=== PATIENT | male | born 1940 | race Caucasian/White ===

== ENCOUNTER → 2016-10-21 | Day surgery (SDC) | payer BC ==
[2016-10-15 13:50] VITALS: BMI 32.0
[2016-10-19 09:55] VITALS: Ht 172.7 cm; Wt 95.5 kg
[~2016-10-21] VITALS: Ht 172.7 cm; Wt 95.5 kg
[~2016-10-21] MED LIST: 500ML BSS 0.3ML EPI 1:1000PF IRRIG ONE; ACETAMINOPHEN 325 MG TAB PO PRN; AMVISC PLUS 0.8ML SYRINGE INT OCU ONE; ATROPINE SULFATE 0.1 MG/ML 5ML SYR IV PRN; BSS FLUSH ONE; DIAZ-165 PO; EpHEDrine SULFATE INJ 50 MG/ML AMP IV PRN; EpINEphrine INJ 1MG/ML AMP 1 MG/ML AMP ONE; LACTATED RINGER'S 1000ML 500 ML IV SCH; LIDOCAINE 3.5% OPH GEL PER APPLICATION CHARGE ONE; LIDOCAINE HCL 1% MPF 2 ML VIAL ONE; MECL1TAB42 PO; MIDAZOLAM HCL 1 MG/ML 2ML VIAL ONE; OCUCOAT 1 ML SOLN IO ONE; ONDA4TAB10 SL; POVIDONE-IODINE OP SOLN 30 ML BTL ONE; PROPARACAINE 0.5% OP SOLN PER DROP CHARGE OPR SCH; TOBRAMYCIN/DEXAMETHASONE OPH OINT PER APPLN CHARGE ONE
[2016-10-21] MEDS: TROPICAMIDE 1% OP SOLN PER DROP CHARGE OPR SCH ×2 (06:31→06:37)
[2016-10-21] MEDS: PHENYLEPHRINE HCL 2.5% OP SOLN PER DROP CHARGE OPR SCH ×2 (06:31→06:36)
[2016-10-21] MEDS: CYCLOPENTOLATE HCL 1% OP SOLN PER DROP CHARGE OPR SCH ×2 (06:32→06:38)
[2016-10-21] MEDS: KETOROLAC 0.5% OP SOLN PER DROP CHARGE OPR SCH ×2 (06:33→06:39)
[2016-10-21] MEDS: GATIFLOXACIN OP SOLN PER DROP CHARGE OPR SCH ×2 (06:34→06:44)
--- NOTE | 2016-10-21 07:04 | History & Physical Bridge - [place] ---
H&P Re-Evaluation Bridge Note: I have examined the patient, reviewed the History & Physical and in the interval since the performance of the History & Physical I have noted the following changes of clinical significance: No changes noted
--- NOTE | 2016-10-21 07:24 | Discharge Instructions-SurgCtr ---
Discharge Instructions Visit Reason for Visit: Cataract Right Eye Discharge Discharge Diagnosis / Problem: cataract Discharge Goals Goal(s): Improve function Activity Recommendations Activity Limitations: per Instructions/Follow-up section Anesthesia . Post Anesthesia Instructions: If you have had General Anesthesia or IV Sedation: * Do not drive today. * Resume driving when surgeon permits. * Do not make important decisions or sign legal documents today. * Call surgeon for: 1. Temperature elevations greater than 101 degrees F. 2. Uncontrollable pain. 3. Excessive bleeding. 4. Persistent nausea and vomiting. 5. Medication intolerance (nausea, vomiting or rash). * For nausea and vomiting use only clear liquids such as: tea, soda, bouillon until nausea subsides, then gradually increase diet as tolerated. * If you have any concerns or questions, call your surgeon's office. If physician is unavailable and it is an emergency, call 911 or go to the nearest emergency room. . Instructions / Follow-Up Instructions / Follow-Up ACTIVITY RECOMMENDATIONS: * No strenuous lifting, jogging or running for 4 days * No swimming or yard work for 1 week. * Limited bending is permitted, such as putting on shoes. RETURN TO SCHOOL/WORK: No work until seen by physician in office. MEDICATIONS: Resume previous medications unless instructed otherwise by your surgeon. This includes eye drops for glaucoma. Zymaxid/Gatifloxacin (marr cap) - one drop every 2 hours until bedtime Nevanac/Ilevro/Prolensa/Ketorolac (newton cap) - one drop every 4 hours until bedtime Prednisolone (white/pink cap, SHAKE WELL) - one drop every 2 hours until bedtime Starting tomorrow - all 3 drops every 4 hours until seen in the office Optive drops - as needed for discomfort SPECIAL CARE INSTRUCTIONS: * Wear eyeshield when sleeping, for four nights. * You may wear your own glasses or sunglasses while awake. * You may read or watch TV * You may shower and wash your face, but be gentle around the eye and pat dry. * Blurry vision and mild irritation are normal. * Call office if pain is more severe or vision becomes dark at . FOLLOW UP VISIT: Follow-up with Dr Chandra tomorrow. Diet Recommendations Home Diet: resume previous diet Procedures Procedures Performed: Right Cataract Phacoemulsification With Intraocular Lens Implant Pending Studies Studies pending at discharge: no Medical Emergencies . Who to Call and When: Medical Emergencies: If at any time you feel your situation is an emergency, please call 911 immediately. . Non-Emergent Contact Non-Emergency issues call your: [facility] [employer] . . "Provider Documentation" section prepared by Robin Chandra.
--- NOTE | 2016-10-21 07:25 | [facility] Operative Report ---
Operative Report 1. PREOPERATIVE DIAGNOSIS: Cataract of the right eye. 2. POSTOPERATIVE DIAGNOSIS: Same. 3. PROCEDURE: Phacoemulsification with intraocular lens implantation of the right eye. SURGEON: Dr. Robin Chandra. ANESTHESIA: Topical Lidocaine gel, 1% Non- Preserved intracameral Lidocaine, and monitored intravenous sedation. INDICATIONS FOR THE PROCEDURE: The patient is a 76 - year-old male with a history of cataract of the right eye causing significant visual impairment. The details of the proposed procedure were explained to the patient who asked appropriate questions and following discussion of all risks, benefits and alternatives agreed to have the procedure done. 4. OPERATION AND FINDINGS: DESCRIPTION OF PROCEDURE: After informed consent was obtained, the patient was brought to the Operating Room at the [facility]. The patient was placed in a supine position and then the right eye was prepped and draped in the usual sterile fashion for intraocular surgery. A drop of topical Lidocaine gel was placed in the operative eye. A wire lid speculum was then placed in the fornices. A corneal paracentesis was then created temporally. The Non-Preserved Lidocaine was then instilled into the anterior chamber. The anterior chamber was then pressurized with viscoelastic. A 2.0 mm clear corneal incision was then created temporally. A cystotome was inserted into the anterior chamber and used to create a tear in the anterior lens capsule. This capsular tear was then used to create a small flap and the flap was dragged in a counterclockwise direction in order to create a continuous curvilinear capsulorrhexis. Hydrodissection was accomplished with balanced salt solution. Phacoemulsification of the lens nucleus was then performed in a standard [id number]-[id number] technique. The phaco time was 24 seconds with an average power of 13 %. The remaining cortical material was removed using irrigation aspiration. The capsular bag was then filled with viscoelastic. A B[employer]ch [employer] Lomb MI60L +22.5 diopters lens was then loaded into the injector and injected into the capsular bag. The remaining viscoelastic was removed with the irrigation aspiration handpiece. The wound was hydrated and then checked and found to be watertight. The intraocular pressure was checked and found to be adequate. The wire lid speculum was removed and the patient's face was cleaned and dried. TobraDex ointment was placed in the inferior fornix. The patient was discharged to the Recovery Room having tolerated the procedure well. There were no complications. The patient will be seen tomorrow in the office for follow-up. I attest to the content of the Intraoperative Record and any orders documented therein. Any exceptions are noted below.
[2016-10-21 07:27] VITALS: TEMP 36.4
[2016-10-21 07:50] VITALS: BP 116/61; PULSE 63; O2SAT 96
--- NOTE | 2016-10-21 07:59 | Anesthesiology Progress Note ---
Anesthesia Post Op Note Date & Time Oct 21, 2016 at 07:59 Vital Signs Pain Intensity: 0 Vital Signs Past 12 Hours Date Time Temp Pulse Resp B/P Pulse Ox O2 Delivery O2 Flow Rate FiO2 10/21/16 07:27 36.4 55 16 117/75 97 Room Air 10/21/16 06:26 36.5 58 18 120/76 95 Room Air Notes Mental Status: alert / awake / arousable, participated in evaluation Pt Amnestic to Procedure: Yes Nausea / Vomiting: adequately controlled Pain: adequately controlled Airway Patency, RR, SpO2: stable & adequate BP & HR: stable & adequate Hydration State: stable & adequate Anesthetic Complications: no major complications apparent
== END | disposition home or self-care (01) ==
LOC: X.SURG 06:13
PROVIDERS: ATTEND Ophthalmology
DX: H26.9 Unspecified cataract (principal); H54.7 Unspecified visual loss; I35.0 Nonrheumatic aortic (valve) stenosis; G47.00 Insomnia, unspecified; Z95.2 Presence of prosthetic heart valve; Z88.5 Allergy status to narcotic agent; Z88.8 Allergy status to other drugs, medicaments and biological substances; Z86.010 Personal history of colon polyps; Z96.659 Presence of unspecified artificial knee joint; Z82.49 Family history of ischemic heart disease and other diseases of the circulatory system

== ENCOUNTER 2017-04-22 06:30 | Emergency (ER) | payer BC ==
[~2017-04-22] VITALS: Ht 175.3 cm; Wt 96.0 kg
[2017-04-22 06:37] VITALS: TEMP 36.6; Ht 175.3 cm; Wt 96.0 kg
[2017-04-22] MEDS ORDERED: SODIUM CHLORIDE 0.9% 1000ML 1,000 ML IV STA (06:56)
[2017-04-22] MEDS ORDERED: ONDANSETRON 8 MG/54 ML D5W IV STA (06:56)
[2017-04-22] MEDS ORDERED: DIAZEPAM INJ 5 MG/ML 2 ML CARP IV STA ×2 (06:56→10:38)
[2017-04-22 07:00] VITALS: O2SAT 97
[2017-04-22 07:05] LABS: BASO % 0.5 %; BASO ABS # 0.04 K/uL (0-0.2); COMPLETE YES; EOS % 2.1 %; HEMATOCRIT 43.8 % (42-52); LYMPH % 19.3 %; LYMPH ABS # 1.58 K/uL (1.2-3.4); MEAN CELL VOLUME 93.2 fL (80-100); MEAN CORPUSCULAR HEMOGLOBIN 31.9 pg (25-34); MEAN CORPUSCULAR HGB CONC 34.2 g/dl (32-36); MEAN PLATELET VOLUME 9.1 fL (7.4-10.4); MONO % 7.5 %; NEUT % 69.6 %; PLATELET COUNT 184 K/uL (130-400); WHITE BLOOD COUNT 8.18 K/uL (4.8-10.8)
[2017-04-22 07:18] LABS: ALT/SGPT 31 U/L (12-78); AST/SGOT 16 U/L (15-37); BLOOD UREA NITROGEN 12 mg/dl (7-18); CALCIUM 8.8 mg/dl (8.5-10.1); CARBON DIOXIDE 27 mmol/L (21-32); CHLORIDE 109 mmol/L (98-107); CREATININE 0.92 mg/dl (0.60-1.40); GLUCOSE 134 mg/dl (70-99); MAGNESIUM 2.1 mg/dl (1.8-2.4); POTASSIUM 4.1 mmol/L (3.5-5.1); SODIUM 143 mmol/L (136-145)
[2017-04-22 07:19] LABS: PROTHROMBIN TIME (PATIENT) 10.8 SECONDS (9.0-12.0)
[2017-04-22 07:29] LABS: ALKALINE PHOSPHATASE 61 U/L (45-117)
--- NOTE | 2017-04-22 07:59 | DIAGNOSTIC IMAGING REPORT ---
HEAD WITHOUT CONTRAST (CT) CLINICAL HISTORY: 76 years-old Male presenting with EVALUATE WEAKNESS. TECHNIQUE: Multidetector CT imaging of the head was performed without the use of intravenous contrast. COMPARISON: 08/02/2007. CT DOSE: 729.78 mGycm FINDINGS: Brain parenchyma normal in appearance with preserved newton-white differentiation. No mass effect or midline shift. No hemorrhage or acute territorial infarct. No hydrocephalus. No extra-axial fluid collection. Paranasal sinuses and mastoid air cells clear. Calvarium intact. IMPRESSION: No acute intracranial pathology. Electronically signed by: Dany Palafox M.D. 04/22/2017 7:58 AM Dictated Date/Time: 04/22/2017 7:55 AM
[2017-04-22 08:07] LABS: URINE APPEARANCE CLEAR (CLEAR); URINE BILIRUBIN NEG (NEG); URINE COLOR YELLOW; URINE NITRITE NEG (NEG); URINE SPECIFIC GRAVITY 1.021 (1.000-1.030); UROBILINOGEN NEG (NEG)
[2017-04-22 08:23] LABS: MANUAL MICROSCOPIC REQUIRED? NO; REVIEW REQ? NO
[2017-04-22] MEDS ORDERED: GADAVIST IV PRN (12:45)
--- NOTE | 2017-04-22 12:51 | DIAGNOSTIC IMAGING REPORT ---
MRA HEAD WITHOUT CONTRAST CLINICAL HISTORY: 76 years-old Male presenting with dizziness for 2 days with nausea and vomiting. TECHNIQUE: MR angiography of the head was performed without the use of intravenous contrast using a 3-D [id number]-[id number] technique. 3-D volumetric tumble views were reconstructed for review. IV contrast: None. COMPARISON: None. FINDINGS: No significant stenosis, aneurysm, or occlusion of the intracranial vasculature. Intracranial portions of the internal carotid arteries and anterior circulation including the anterior and middle cerebral arteries patent. Vertebrobasilar system and posterior circulation including the superior cerebellar and posterior cerebral arteries also patent. IMPRESSION: 1. No significant stenosis, aneurysm, occlusion of the intracranial vasculature. Electronically signed by: Dany Palafox M.D. 04/22/2017 12:50 PM Dictated Date/Time: 04/22/2017 12:43 PM
--- NOTE | 2017-04-22 12:59 | DIAGNOSTIC IMAGING REPORT ---
MRI OF THE BRAIN WITHOUT CONTRAST CLINICAL HISTORY: Persistent dizziness, nausea, vomiting. COMPARISON STUDY: Noncontrast head CT dated 04/22/2017 FINDINGS: Sagittal T1, axial diffusion, proton density and T2 weighted axial, coronal FLAIR, and axial T1-weighted images were acquired. No intra or extra-axial mass lesions are visualized Axial diffusion-weighted images reveal no evidence of acute or subacute infarction. There is no evidence of ventricular dilatation. Proton density T2-weighted and FLAIR images reveal minor foci of increased T2 signal within the white matter likely a small vessel basis. There are no abnormal flow voids. IMPRESSION: Normal study. Electronically signed by: Hilton Mendoza M.D. 04/22/2017 12:58 PM Dictated Date/Time: 04/22/2017 12:52 PM
--- NOTE | 2017-04-22 13:27 | DIAGNOSTIC IMAGING REPORT ---
NECK MRA HISTORY: Dizziness, nausea, vomiting. TECHNIQUE: Rgmb-we-efpfcm and gadolinium-enhanced MRA of the neck was performed both before and after the intravenous administration of contrast. All measurements were calculated based on NASCET criteria. The patient was administered 9.5 cc of intravenous Gadavist COMPARISON STUDY: None. FINDINGS: The aortic arch and proximal great vessels are widely patent. There are mild to moderate atheromatous changes at both carotid bulbs. There is no evidence of hemodynamic significant internal carotid artery stenosis. There are no findings to indicate aortic dissection. Mild narrowing of both vertebral origins is suspected. IMPRESSION: 1. No evidence of hemodynamic significant internal carotid artery stenosis. Mild to moderate atheromatous changes at both carotid bulbs 2. Mild narrowing of both vertebral origins is suspected Electronically signed by: Hilton Mendoza M.D. 04/22/2017 1:25 PM Dictated Date/Time: 04/22/2017 1:22 PM
[2017-04-22 14:02] VITALS: BP 167/93; PULSE 76; O2SAT 96
[2017-04-22] MEDS ORDERED: ONDA4TAB10 SL (14:10)
[2017-04-22] MEDS ORDERED: MECL1TAB42 PO (14:10)
[2017-04-22] MEDS ORDERED: DIAZ-165 PO (14:10)
--- NOTE | 2017-04-22 15:33 | EMERGENCY ROOM VISIT NOTE ---
History Report prepared by To: Piter Hector Under the Supervision of: Dr. Uvaldo Justin M.D. First contact with patient: 06:37 Chief Complaint: DIZZY Stated Complaint: DIZZY/NAUSEA History of Present Illness The patient is a 76 year old male who presents to the Emergency Room with complaints of constant dizziness beginning yesterday. He states that he was seen at the [facility] yesterday for his dizziness. He states that he woke up with his symptoms yesterday. The patient states that he was given a medication at [facility] yesterday which resolved his symptoms temporarily. He also complains of nausea and vomiting. He denies any recent falls or trauma. Pt denies LOC, headache, fevers, chills, diaphoresis, visual changes, neck pain, chest pain, breathing difficulties, abdominal pain, back pain, melena, hematochezia, urinary symptoms, numbness, weakness, lymphadenopathy, rash, or other complaints. Moving his head does not worsen his dizziness. The patient states that he is supposed to be taking medication, but has not taken any medications for a few years. He states that he is not sure which medications he is supposed to be taking. Source of History: patient Onset: Yesterday Quality: other (dizziness) Timing: constant Associated Symptoms: + nausea, + vomiting, No LOC, No headache, No chest pain, No SOB, No abdominal pain Review of Systems See HPI for pertinent positives and negatives. A total of ten systems were reviewed and were otherwise negative. Past Medical & Surgical Medical Problems: (1) Aortocoronary Bypass (2) Atrial Flutter (3) Hypertension Nos (4) Pericardial Disease Nos (5) Sciatica Family History Heart disease Social History Smoking Status: Current Every Day Smoker Alcohol Use: occasionally Drug Use: none Marital Status: Occupation Status: employed Current/Historical Medications Scheduled Ondasetron Odt (Zofran Odt), 4 MG SL Q6H Scheduled PRN Diazepam (Valium), 5 MG PO Q6H PRN for Dizziness or Vertigo Meclizine Hcl (Meclizine Hcl), 25 MG PO TID PRN for Dizziness Allergies Coded Allergies: Codeine (Verified Allergy, Unknown, "EYES GO SHUT AND HEAD SWELLS", ) Physical Exam Vital Signs Date Time Temp Pulse Resp B/P (MAP) Pulse Ox O2 Delivery O2 Flow Rate FiO2 04/22/17 14:02 76 16 167/93 96 Room Air 04/22/17 13:21 64 04/22/17 13:13 62 18 149/94 96 Room Air 04/22/17 10:52 63 15 133/81 94 Room Air 04/22/17 10:22 60 04/22/17 09:29 65 16 142/71 96 Room Air 04/22/17 07:39 72 12 148/81 95 Room Air 04/22/17 07:00 97 Room Air 04/22/17 06:41 50 04/22/17 06:37 36.6 65 16 143/82 96 Room Air Physical Exam GENERAL: Awake, alert, well appearing, no distress HENT: Normocephalic, atraumatic. TM's normal. Oropharynx unremarkable. EYES: PERRL. EOMI. Normal conjunctiva. Sclera non-icteric. Mild lateral nystagmus to the left. NECK: Supple. No nuchal rigidity. FROM. No JVD or bruit. RESPIRATORY: CTA CARDIAC: Bradycardic heart rate with a regular rhythm. No murmur. ABDOMEN: Soft, non distended. No tenderness to palpation. No rebound or guarding. No masses. RECTAL: Deferred. MUSCULOSKELETAL: Unremarkable. No edema. No discoloration. Gross motor strength symmetric. NEURO: Cranial nerves 2-12 grossly intact. Normal sensorium. No sensory or motor deficits noted. Speech normal. No pronator drift. Negative Hints. SKIN: No rash or jaundice noted. LYMPH: No adenopathy. Medical Decision & Procedures ER Provider Diagnostic Interpretation: MRI/CT: Radiology results as stated below per my review and radiologist interpretation HEAD WITHOUT CONTRAST (CT) FINDINGS: Brain parenchyma normal in appearance with preserved newton-white differentiation. No mass effect or midline shift. No hemorrhage or acute territorial infarct. No hydrocephalus. No extra-axial fluid collection. Paranasal sinuses and mastoid air cells clear. Calvarium intact. IMPRESSION: No acute intracranial pathology. Electronically signed by: Dany Palafox M.D. NECK MRA FINDINGS: The aortic arch and proximal great vessels are widely patent. There are mild to moderate atheromatous changes at both carotid bulbs. There is no evidence of hemodynamic significant internal carotid artery stenosis. There are no findings to indicate aortic dissection. Mild narrowing of both vertebral origins is suspected. IMPRESSION: 1. No evidence of hemodynamic significant internal carotid artery stenosis. Mild to moderate atheromatous changes at both carotid bulbs 2. Mild narrowing of both vertebral origins is suspected Electronically signed by: Hilton Mendoza M.D. MRA HEAD WITHOUT CONTRAST FINDINGS: No significant stenosis, aneurysm, or occlusion of the intracranial vasculature. Intracranial portions of the internal carotid arteries and anterior circulation including the anterior and middle cerebral arteries patent. Vertebrobasilar system and posterior circulation including the superior cerebellar and posterior cerebral arteries also patent. IMPRESSION: 1. No significant stenosis, aneurysm, occlusion of the intracranial vasculature. Electronically signed by: Dany Palafox M.D. MRI OF THE BRAIN WITHOUT CONTRAST FINDINGS: Sagittal T1, axial diffusion, proton density and T2 weighted axial, coronal FLAIR, and axial T1-weighted images were acquired. No intra or extra-axial mass lesions are visualized Axial diffusion-weighted images reveal no evidence of acute or subacute infarction. There is no evidence of ventricular dilatation. Proton density T2-weighted and FLAIR images reveal minor foci of increased T2 signal within the white matter likely a small vessel basis. There are no abnormal flow voids. IMPRESSION: Normal study. Electronically signed by: Hilton Mendoza M.D. Laboratory Results 04/22/17 06:40 Red Blood Count 4.70, Mean Corpuscular Volume 93.2, Mean Corpuscular Hemoglobin 31.9, Mean Corpuscular Hemoglobin Concent 34.2, Mean Platelet Volume 9.1, Neutrophils (%) (Auto) 69.6, Lymphocytes (%) (Auto) 19.3, Monocytes (%) (Auto) 7.5, Eosinophils (%) (Auto) 2.1, Basophils (%) (Auto) 0.5, Neutrophils # (Auto) 5.70, Lymphocytes # (Auto) 1.58, Monocytes # (Auto) 0.61, Eosinophils # (Auto) 0.17, Basophils # (Auto) 0.04 04/22/17 06:40 Test 04/22/17 06:40 04/22/17 07:45 White Blood Count 8.18 K/uL (4.8-10.8) Red Blood Count 4.70 M/uL (4.7-6.1) Hemoglobin 15.0 g/dL (14.0-18.0) Hematocrit 43.8 % (42-52) Mean Corpuscular Volume 93.2 fL (80-100) Mean Corpuscular Hemoglobin 31.9 pg (25-34) Mean Corpuscular Hemoglobin Concent 34.2 g/dl (32-36) Platelet Count 184 K/uL (130-400) Mean Platelet Volume 9.1 fL (7.4-10.4) Neutrophils (%) (Auto) 69.6 % Lymphocytes (%) (Auto) 19.3 % Monocytes (%) (Auto) 7.5 % Eosinophils (%) (Auto) 2.1 % Basophils (%) (Auto) 0.5 % Neutrophils # (Auto) 5.70 K/uL (1.4-6.5) Lymphocytes # (Auto) 1.58 K/uL (1.2-3.4) Monocytes # (Auto) 0.61 K/uL (0.11-0.59) Eosinophils # (Auto) 0.17 K/uL (0-0.5) Basophils # (Auto) 0.04 K/uL (0-0.2) RDW Standard Deviation 47.6 fL (36.4-46.3) RDW Coefficient of Variation 13.9 % (11.5-14.5) Immature Granulocyte % (Auto) 1.0 % Immature Granulocyte # (Auto) 0.08 K/uL (0.00-0.02) Prothrombin Time 10.8 SECONDS (9.0-12.0) Prothromb Time International Ratio 1.0 (0.9-1.1) Activated Partial Thromboplast Time 25.9 SECONDS (21.0-31.0) Partial Thromboplastin Ratio 1.0 Anion Gap 7.0 mmol/L (3-11) Est Creatinine Clear Calc Drug Dose 80.5 ml/min Estimated GFR () 94.6 Estimated GFR (Non- 81.6 BUN/Creatinine Ratio 13.0 (10-20) Calcium Level 8.8 mg/dl (8.5-10.1) Magnesium Level 2.1 mg/dl (1.8-2.4) Total Bilirubin 0.5 mg/dl (0.2-1) Direct Bilirubin 0.1 mg/dl (0-0.2) Aspartate Amino Transf (AST/SGOT) 16 U/L (15-37) Alanine Aminotransferase (ALT/SGPT) 31 U/L (12-78) Alkaline Phosphatase 61 U/L (45-117) Troponin I < 0.015 ng/ml (0-0.045) Total Protein 6.5 gm/dl (6.4-8.2) Albumin 3.7 gm/dl (3.4-5.0) Lipase 250 U/L (73-393) Thyroid Stimulating Hormone (TSH) 1.340 uIu/ml (0.300-4.500) Urine Color YELLOW Urine Appearance CLEAR (CLEAR) Urine pH 7.0 (4.5-7.5) Urine Specific [place] 1.021 (1.000-1.030) Urine Protein NEG (NEG) Urine Glucose (UA) NEG (NEG) Urine Ketones NEG (NEG) Urine Occult Blood NEG (NEG) Urine Nitrite NEG (NEG) Urine Bilirubin NEG (NEG) Urine Urobilinogen NEG (NEG) Urine Leukocyte Esterase NEG (NEG) Laboratory results reviewed by me Medications Administered Medications (Trade) Dose Ordered Sig/Emile Route Start Time Stop Time Status Last Admin Dose Admin Sodium Chloride 1,000 ml @ 999 mls/hr Q1H1M STAT IV 04/22/17 06:56 04/22/17 07:56 DC 04/22/17 06:56 999 MLS/HR Ondansetron HCl (Zofran 8mg Iv) 8 mg NOW STAT IV 04/22/17 06:56 04/22/17 06:58 DC 04/22/17 07:18 8 MG Diazepam (Valium Inj) 2.5 mg NOW STAT IV 04/22/17 06:56 04/22/17 06:58 DC 04/22/17 07:18 2.5 MG Diazepam (Valium Inj) 2.5 mg NOW STAT IV 04/22/17 10:38 04/22/17 10:42 DC 04/22/17 10:50 2.5 MG ECG Indication: other (dizziness) Rate (beats per minute): 53 Rhythm: sinus bradycardia Findings: T-wave inversion (Lateral), other (Left atrial enlargement. Poor R- wave progression. ) Comparison ECG Date: March 13, 2015 ED Course 0654: The patient was evaluated in room A10. A complete history and physical exam was performed. 0656: Ordered Valium Inj 2.5 mg IV, Zofran 8 mg IV, Sodium Chloride 1000 ml @ 999 mls/hr IV. 0823: I spoke with the patient. He is feeling better. 1038: I reassessed the patient. He has had another episode of dizziness. Ordered Valium Inj 2.5 mg IV. 1245: Ordered Gadavist 9.5 mmol IV. 1415: I reevaluated the patient. Discussed results and discharge instructions: he verbalized understanding and agreement. The patient is ready for discharge. Medical Decision Triage Nursing notes reviewed. The patient's presentation and history were concerning for dizziness. Etiologies such as benign positional vertigo, tumor, infection, hypoglycemia, electrolyte abnormalities, cardiac sources, intracerebral event, toxicologic, neurologic, as well as others were entertained. The patient presented with intermittent dizziness. He had dizziness has been morning and was seen at the [facility] in [place] and treated. He states he was given a prescription but did not fill it. He felt back to normal yesterday evening. He went to bed and woke up this morning with similar symptoms. He denies any trauma. He had no other neurologic complaints. The patient was given normal saline, Zofran, and Valium. Imaging was ordered and was unremarkable. His CBC, chemistry panel, LFTs, magnesium, troponin and TSH were normal. ECG did not reveal any evidence of ischemia when compared to his prior. MR imaging was ordered as the patient had a relapse of symptoms. He was given a second dose of Valium. He did very well with this. MRI and MRA did not reveal any evidence of acute pathology. The patient's symptoms resolved. I discussed conservative management with him. He was feeling much better. He felt comfortable. He'll follow-up closely with his primary physician as scheduled. He was given a prescription for Zofran, meclizine, and Valium. If He worsens in any way he will be back to the Emergency Room. By the evaluation outlined above other emergent etiologies such as those listed in the differential, as well as others, were deemed relatively unlikely. The patient was educated about the findings as listed above. All questions were answered and the patient was pleased with the treatment. Return instructions were outlined and the patient was discharged in stable condition. The patient was referred to his PCP for follow-up for a recheck of the current condition. Blood pressure screening: Patient was found to have an elevated blood pressure and was referred to their primary doctor for recheck and further treatment. Medication Reconciliation: I attest that I have personally reviewed the patient' s current medication list Impression Primary Impression: Dizziness Additional Impression: Vertigo Scribe Attestation The scribe's documentation has been prepared under my direction and personally reviewed by me in its entirety. I confirm that the note above accurately reflects all work, treatment, procedures, and medical decision making performed by me. Departure Information Dispostion Home / Self-Care Prescriptions Meclizine Hcl (MECLIZINE HCL) 25 Mg Tab 25 MG PO TID Y for Dizziness, #21 TAB Prov: Uvaldo Justin MD 04/22/17 Ondasetron Odt (ZOFRAN ODT) 4 Mg Tab 4 MG SL Q6H for Nausea, #6 TAB Prov: Uvaldo Justin MD 04/22/17 Diazepam (Valium) 5 Mg Tab 5 MG PO Q6H Y for Dizziness or Vertigo, #10 TAB Prov: Uvaldo Justin MD 04/22/17 Referrals Esequiel Paige M.D. (PCP) Forms HOME CARE DOCUMENTATION FORM, IMPORTANT VISIT INFORMATION Patient Instructions My [facility] Additional Instructions DIZZINESS INSTRUCTIONS: DO NOT drive, drink alcohol, operate machinery, or perform dangerous activities today. You were given medications in the ER that can affect your ability to safely function or operate a vehicle. You should not drive or perform any dangerous activities until your symptoms resolve. Valium 5mg: Take 1 pill every 6-8 hours as needed for dizziness or vertigo. Avoid alcohol, operating machinery or dangerous equipment, working on ladders or roofs, DRIVING, or situations where being under the influence may be dangerous Meclizine 25mg: Take 1 pill every 8 hours as needed for dizziness or vertigo. Avoid alcohol, operating machinery or dangerous equipment, working on ladders or roofs, DRIVING, or situations where being under the influence may be dangerous Zofran(odansetron) tablets 4mg: Take one and allow it to dissolve in your mouth every four to six hours as needed for nausea or vomiting. Rest and drink plenty of fluids as tolerated. Continue current medications. If you have nausea or vomiting: Once your stomach is settled start with a clear liquid diet (jello, soup broth, etc.) and then advance as tolerated. You should avoid full, heavy meals for about 24 hrs from the time your symptoms resolved. Return to the ER immediately for worsening or persistent dizziness, vomiting, headache, fevers, chest pains, difficulty breathing, black or bloody stools, slurred speech, numbness, weakness, visual changes, worsening of your condition , or as needed. Follow up with your primary physician Tuesday for a recheck of your current condition. Problem Qualifiers
== END 2017-04-22 13:35 | disposition home or self-care (01) ==
LOC: EDBD 06:30 → C.EDA 06:32
DX: R42 Dizziness and giddiness (principal); I10 Essential (primary) hypertension; I48.92 Unspecified atrial flutter; Z82.49 Family history of ischemic heart disease and other diseases of the circulatory system; F17.200 Nicotine dependence, unspecified, uncomplicated

== ENCOUNTER → 2017-04-26 | Outpatient (CLI) | payer BC ==
[~2017-04-26] MED LIST changes: -500ML BSS 0.3ML EPI 1:1000PF IRRIG ONE; -ACETAMINOPHEN 325 MG TAB PO PRN; -AMVISC PLUS 0.8ML SYRINGE INT OCU ONE; -ATROPINE SULFATE 0.1 MG/ML 5ML SYR IV PRN; -BSS FLUSH ONE; -EpHEDrine SULFATE INJ 50 MG/ML AMP IV PRN; -EpINEphrine INJ 1MG/ML AMP 1 MG/ML AMP ONE; -LACTATED RINGER'S 1000ML 500 ML IV SCH; -LIDOCAINE 3.5% OPH GEL PER APPLICATION CHARGE ONE; -LIDOCAINE HCL 1% MPF 2 ML VIAL ONE; -MIDAZOLAM HCL 1 MG/ML 2ML VIAL ONE; -OCUCOAT 1 ML SOLN IO ONE; -POVIDONE-IODINE OP SOLN 30 ML BTL ONE; -PROPARACAINE 0.5% OP SOLN PER DROP CHARGE OPR SCH; -TOBRAMYCIN/DEXAMETHASONE OPH OINT PER APPLN CHARGE ONE
[2017-04-26 18:13] LABS: CHOLESTEROL/HDL RATIO 5.3
[2017-04-27 06:09] LABS: ESTIMATED AVERAGE GLUCOSE 126 mg/dl; HA1C FLAG Normal (Normal)
--- NOTE | 2017-05-06 08:42 | CODING QUERY MEDICAL NECESSITY ---
CQSUPPORTING DIAGNOSIS NEEDED A supporting diagnosis is required for the test/procedure performed on this patient in order for us to be reimbursed by the patient's insurance. Please provide a supporting diagnosis for the following test/procedure listed below next to the test name along with your signature. *If there is no additional diagnosis for this patient that would support the following test/procedure please document that below next to the test/procedure. Test(s)/Procedure(s) that require a supporting diagnosis: DOS 04/26/17 GLYCATED HEMOGLOBIN TEST TEST WAS ORDERED BY LEANNE GARIBAY Provider Signature: Date: Thank you Janny Greene Health Information Management Once completed, please kindly fax back to [phone] For questions please call [phone]
== END | disposition home or self-care (01) ==
LOC: C.LABBFT 12:35
PROVIDERS: ATTEND Physician Assistant Medical
DX: I10 Essential (primary) hypertension (principal); R73.01 Impaired fasting glucose

== ENCOUNTER 2019-02-15 16:59 | Inpatient (IN) ==
--- OUTSIDE RECORDS SUMMARY | 2019-02-15 17:02 | External Medical Summary | Continuity of Care Document ---
:1940 Author Name Shay Bingham, Provider Address Unavailable Unavailable , Care Team Providers Name Role Phone Yousif Sandoval PA-C Unavailable 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) Fatigue (780.79) (R53.83) Diarrhea (787.91) (R19.7) Abdominal pain (789.00) (R10.9) Psoriasis (696.1) (L40.9) Carotid bruit (785.9) (R09.89) Muscle spasm (728.85) (M62.838) CAD (coronary artery disease) (414.00) (I25.10) Hypertension (401.9) (I10) History of aortic valve replacement with bioprosthetic valve (V42.2) (Z95.3) Aortic valve disorder (424.1) (I35.9) Effusion of right knee (719.06) (M25.461) Allergies and Adverse Reactions Ambien TABS (Allergy) Codeine Derivatives (Allergy) Medications Aspirin EC Low Dose 81 MG Oral Tablet De layed Release; take 1 tablet by mouth once daily LISA Sandoval Start: 30-May-2018 Quantity: 90 Refills: 3 diazePAM 2 MG Oral Tablet; TAKE 4 TABLET Daily PRN Start: 11-Jan-2019 Refills: 0 Naproxen 500 MG Oral Tablet; TAKE 1 TABLET BY MOUTH TWICE A DAY NEEDED Start: 11-Jan-2019 Quantity: 180 Refills: 0 Naproxen 375 MG Oral Tablet; Take 1 tablet twice daily LISA Perez ch Start: 05-Jan-2019 Quantity: 30 Refills: 1 Cyclobenzaprine HCl - 10 MG Oral Tablet; TAKE 1 TABLET 3 TIMES DAILY NEEDED. LISA Do Start: 05-Jan-2019 Quantity: 21 Refills: 0 oxyCODONE-Acetaminophen 5-325 MG Oral Tablet; 1 tab po q 4hr prn LISA Do Start: 11-Jan-2019 Quantity: 45 Refills: 0 predniSONE 20 MG Oral Tablet; TAKE 2 TABLET Daily Kajal Do Start: 11-Jan-2019 Quantity: 14 Refills: 0 Metoprolol Succinate ER 25 MG Oral Table t Extended Release 24 Hour; TAKE 1 TABLET BY MOUTH EVERY DAY LISA Sandoval Start: 30-May-2018 Quantity: 90 Refills: 3 Simvastatin 40 MG Oral Tablet; TAKE 1 TABLET AT BEDTIME. LISA Holt Start: 30-May-2018 Quantity: 90 Refills: 3 Procedures History of Back Surgery Status: Complete d History of Colonoscopy (Fiberoptic) Stat us: Completed History of Aortic Valve Replacement Stat us: Completed History of Cervical Vertebral Fusion Sta tus: Completed History of Arthroscopy Knee Right Status : Completed History of aortic valve replacement with bioprosthetic valve History of CABG Status: Completed Immunizations Zoster (Zostavax) On: 25-Nov-2009 Pneumococcal polysaccharide vaccine, 23 valent On: 20-Apr-20 10 11:03 Lot #: [id number], [employer] Influenza On: 08-Jul-2010 16:19 Lot #: [id number], [employer] Influenza On: 26-Jul-2011 13:51 Lot #: [id number], [employer] Prevnar 13 Intramuscular Suspension On: 31-Mar-2015 14:21 Lot #: [id number], [employer] Zoster (Zostavax) Comments:approximate ly [id number] Family History Unknown Family Member Family history of Coronary Artery Disease Status: Active Comments: Family History Social History - Smoking Status Current every day smoker Plan of Treatment Planned Encounters Appointment; Yousif Sandoval PA-C Start: 14-Jun-2019 14:[address] Planned Observations Planned Goals not documented Results No Known Results Results not documented Encounters Appointment; Nuha Do PA-C 11-Jan-2019 11:00 Encounter Diagnosis: Problem not documented Appointment; Yousif Sandoval PA-C 30-May-2018 14:30 Encounter Diagnosis: Problem not documented Appointment; Nuha Do PA-C 14-Mar-2018 15:30 Encounter Diagnosis: Problem not documented Appointment; Nuha Do PA-C 21-Oct-2017 15:30 Encounter Diagnosis: Problem not documented Appointment; Echo/Stress, Echo/Stress 27-May-2017 10:30 Encounter Diagnosis: Problem not documented Appointment; Yousif Sandoval PA-C 27-May-2017 10:00 Encounter Diagnosis: Problem not documented Appointment; Monik Gunter PA-C 26-Apr-2017 14:00 Encounter Diagnosis: Problem not documented Appointment; Yousif Sandoval PA-C 14-Jun-2019 14:00 Encounter Diagnosis: Problem not documented
[2019-02-15 17:53] LABS: Basophils # (auto) 0.07 K/uL (0-0.2); Eosinophils # (auto) 0.29 K/uL (0-0.5); Eosinophils % (auto) 4.1 %; Hemoglobin 15.1 g/dL (14.0-18.0); Immature Granulocytes % (auto) 1.4 %; Lymphocytes # (auto) 1.43 K/uL (1.2-3.4); Lymphocytes % (auto) 20.2 %; Mean Corpuscular Hgb Conc 36.8 g/dL (32-36); Mean Corpuscular Volume 90.7 fL (80-100); Mean Platelet Volume 9.1 fL (7.4-10.4); Monocytes # (auto) 0.97 K/uL (0.11-0.59); Monocytes % (auto) 13.7 %; Neutrophils # (auto) 4.23 K/uL (1.4-6.5); Neutrophils % (auto) 59.6 %; Platelet Count 246 K/uL (130-400); RDW Coefficient of Variation 14.3 % (11.5-14.5); RDW Standard Deviation 47.2 fL (36.4-46.3); Red Blood Count 4.52 M/uL (4.7-6.1); White Blood Count 7.09 K/uL (4.8-10.8)
[2019-02-15 18:11] LABS: Albumin Level 3.9 gm/dl (3.4-5.0); Calcium 8.8 mg/dl (8.5-10.1); Creatinine Clr Calc Pharmacy 75.3 ml/min; Est GFR (African American) 88.6; Est GFR (Non-African American) 76.5; Potassium 3.8 mmol/L (3.5-5.1)
[2019-02-15 18:14] LABS: Partial Thromboplastin Time 26.2 Seconds (21.0-31.0); Prothrombin Time 10.2 Seconds (9.0-12.0)
[2019-02-15 18:20] LABS: Albumin Globulin Ratio 1.2 (0.9-2); Bilirubin,Total 0.4 mg/dl (0.2-1); Globulin 3.2 gm/dl (2.5-4.0); Total Protein 7.1 gm/dl (6.4-8.2); Troponin I 0.05 ng/ml (0-0.045)
[2019-02-15] MEDS ORDERED: NITROGLYCERIN SL 0.4 MG/TAB TAB SL STA (18:31)
[2019-02-15] MEDS ORDERED: ASPIRIN 81 MG CHEW PO STA (18:44)
[2019-02-15] MEDS ORDERED: ASPIRIN 325 MG ECTAB PO SCH (18:45)
--- NOTE | 2019-02-15 18:45 | XRay Report ---
XR chest 1V portable CLINICAL HISTORY: chest pain COMPARISON STUDY: 03/13/2015 FINDINGS: Mild stable cardiomegaly. Prior median sternotomy. Diaphragms are smooth. Lungs are clear. IMPRESSION: Negative chest. The above report was generated using voice recognition software. It may contain grammatical, syntax or spelling errors. Electronically signed by: Viet Marin M.D. 02/15/2019 6:43 PM
[2019-02-15 18:58] LABS: Magnesium 2.3 mg/dl (1.8-2.4); Phosphorus 2.7 mg/dl (2.5-4.9)
--- NOTE | 2019-02-15 19:07 | Emergency Department Note ---
ED Visit Note I took a history and physical from the patient. I coordinated the patients management with Dr. Cerna .
--- NOTE | 2019-02-15 22:08 | Emergency Department Note ---
Entered by Vaishali Wills acting as a scribe for Marvin Cerna MD History of Present Illness General Chief complaint: Chest Pain Stated complaint: THINKS HAVING HEART ATTACK Time Seen by Provider: 02/15/19 17:58 Source: patient History of Present Illness Onset (ago): hour(s) 2 Location: chest Radiation: other (right side of chest) Pain Consistency: + other (Sudden) Maximum Pain Intensity: 5 Current Pain Intensity: 5 Quality: + other (Chest pain) Exacerbated By: not by movement and not by other (Deep breathing) Associated symptoms: + chest pain and + other (Tingling in fingers); no cough an d no shortness of breath The patient is a 78 year old male presenting to the Emergency Department complaining of sudden chest pain starting 2 hours ago. The patient reports that he has chest pain in the center of his chest that radiates to the right side of his chest. He currently rates this pain 5/10. He states that he feels a tingling in his fingers that he describes as pins and needles. He notes that deep breathing and walking do not worsen his symptoms. The patient reports that he doesnt see a molding line assistant and rarely sees a PCP. He states that he does not take the medications that he is supposed to take. He notes that he smokes 1 pack of cigarettes per day and has been smoking this much for the last 40 years. He adds that he normally drinks 2 to 3 beers per day. The patient denies shortness of breath, cough, trauma, recent travels or recent surgeries. Home Medications Home Medications Medication Instructions Recorded Confirmed Type No Known Home Medications 02/15/19 02/15/19 History Allergies Allergy/AdvReac Type Severity Reaction Status Date / Time codeine Allergy Unknown "EYES GO Verified 02/15/19 18:27 SHUT AND HEAD SWELLS" Past Med/Surg History Medical History Vertigo (Acute) CAD (coronary artery disease) Surgical History Hx of aortic valve replacement Hx of CABG History of back surgery (Chronic) History of neck surgery Family History Other Coronary heart disease Social History Preferred Language: [place] Communication Ability: Effective 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 and A total of 10 systems reviewed and were otherwise negative Physical Exam Vital Signs Vital Signs - 24 hr 02/15/19 17:09 02/15/19 17:29 02/15/19 17:30 Temperature Temperature Source Sepsis Recent Fever Within 48 Hours No Sepsis Action Taken by Nursing No Action Required Pulse Rate 72 78 78 Pulse Rate [Apical] Pulse Rate from SpO2 Sensor 79 77 Pulse Rhythm Regular Pulse Strength Normal Respiratory Rate 20 12 24 Respiratory Effort / Characteristics Non-Labored Respiratory Depth Normal Respiratory Pattern Blood Pressure 177/94 H 189/108 H 185/110 H Blood Pressure [Left Arm] Blood Pressure Mean 121 135 135 Blood Pressure Mean [Left Arm] Blood Pressure Position Sitting Blood Pressure Position [Left Arm] Pulse Oximetry 96 97 98 Oxygen Delivery Method Room Air Room Air Room Air 02/15/19 17:43 02/15/19 17:50 02/15/19 18:00 Temperature Temperature Source Sepsis Recent Fever Within 48 Hours Sepsis Action Taken by Nursing Pulse Rate 72 75 Pulse Rate [Apical] Pulse Rate from SpO2 Sensor 76 Pulse Rhythm Regular Pulse Strength Respiratory Rate 20 21 Respiratory Effort / Characteristics Non-Labored Respiratory Depth Normal Respiratory Pattern Blood Pressure 189/107 H Blood Pressure [Left Arm] Blood Pressure Mean 134 Blood Pressure Mean [Left Arm] Blood Pressure Position Blood Pressure Position [Left Arm] Pulse Oximetry 96 97 Oxygen Delivery Method Room Air Room Air Room Air 02/15/19 18:30 02/15/19 18:40 02/15/19 18:50 Temperature Temperature Source Sepsis Recent Fever Within 48 Hours Sepsis Action Taken by Nursing Pulse Rate 72 79 77 Pulse Rate [Apical] Pulse Rate from SpO2 Sensor 72 78 Pulse Rhythm Pulse Strength Respiratory Rate 19 11 L Respiratory Effort / Characteristics Respiratory Depth Respiratory Pattern Blood Pressure 202/109 H Blood Pressure [Left Arm] Blood Pressure Mean 140 Blood Pressure Mean [Left Arm] Blood Pressure Position Blood Pressure Position [Left Arm] Pulse Oximetry 96 97 Oxygen Delivery Method Room Air Room Air 02/15/19 19:00 02/15/19 19:10 02/15/19 19:20 Temperature Temperature Source Sepsis Recent Fever Within 48 Hours Sepsis Action Taken by Nursing Pulse Rate 76 75 70 Pulse Rate [Apical] Pulse Rate from SpO2 Sensor 75 75 69 Pulse Rhythm Pulse Strength Respiratory Rate 12 11 L 15 Respiratory Effort / Characteristics Respiratory Depth Respiratory Pattern Blood Pressure 168/90 H Blood Pressure [Left Arm] Blood Pressure Mean 116 Blood Pressure Mean [Left Arm] Blood Pressure Position Blood Pressure Position [Left Arm] Pulse Oximetry 95 97 97 Oxygen Delivery Method Room Air Room Air Room Air 02/15/19 19:30 02/15/19 19:40 02/15/19 19:50 Temperature Temperature Source Sepsis Recent Fever Within 48 Hours Sepsis Action Taken by Nursing Pulse Rate 71 68 80 Pulse Rate [Apical] Pulse Rate from SpO2 Sensor 72 70 80 Pulse Rhythm Pulse Strength Respiratory Rate 13 13 16 Respiratory Effort / Characteristics Respiratory Depth Respiratory Pattern Blood Pressure 156/93 H Blood Pressure [Left Arm] Blood Pressure Mean 114 Blood Pressure Mean [Left Arm] Blood Pressure Position Blood Pressure Position [Left Arm] Pulse Oximetry 96 97 98 Oxygen Delivery Method Room Air Room Air Room Air 02/15/19 20:00 02/15/19 20:01 02/15/19 20:10 Temperature Temperature Source Sepsis Recent Fever Within 48 Hours Sepsis Action Taken by Nursing Pulse Rate 69 69 75 Pulse Rate [Apical] Pulse Rate from SpO2 Sensor 68 69 76 Pulse Rhythm Pulse Strength Respiratory Rate 12 12 19 Respiratory Effort / Characteristics Respiratory Depth Respiratory Pattern Blood Pressure 170/75 H Blood Pressure [Left Arm] Blood Pressure Mean 106 Blood Pressure Mean [Left Arm] Blood Pressure Position Blood Pressure Position [Left Arm] Pulse Oximetry 97 96 96 Oxygen Delivery Method Room Air Room Air Room Air 02/15/19 20:20 02/15/19 20:30 02/15/19 20:40 Temperature Temperature Source Sepsis Recent Fever Within 48 Hours Sepsis Action Taken by Nursing Pulse Rate 72 91 H 73 Pulse Rate [Apical] Pulse Rate from SpO2 Sensor 73 Pulse Rhythm Pulse Strength Respiratory Rate 6 L 21 14 Respiratory Effort / Characteristics Respiratory Depth Respiratory Pattern Blood Pressure Blood Pressure [Left Arm] Blood Pressure Mean Blood Pressure Mean [Left Arm] Blood Pressure Position Blood Pressure Position [Left Arm] Pulse Oximetry 97 Oxygen Delivery Method 02/15/19 20:50 02/15/19 21:00 02/15/19 21:10 Temperature Temperature Source Sepsis Recent Fever Within 48 Hours Sepsis Action Taken by Nursing Pulse Rate 86 76 81 Pulse Rate [Apical] Pulse Rate from SpO2 Sensor Pulse Rhythm Pulse Strength Respiratory Rate 29 H 22 15 Respiratory Effort / Characteristics Respiratory Depth Respiratory Pattern Blood Pressure Blood Pressure [Left Arm] Blood Pressure Mean Blood Pressure Mean [Left Arm] Blood Pressure Position Blood Pressure Position [Left Arm] Pulse Oximetry Oxygen Delivery Method 02/15/19 21:20 02/15/19 21:30 02/15/19 21:40 Temperature Temperature Source Sepsis Recent Fever Within 48 Hours Sepsis Action Taken by Nursing Pulse Rate 81 67 75 Pulse Rate [Apical] Pulse Rate from SpO2 Sensor 70 75 Pulse Rhythm Pulse Strength Respiratory Rate 15 16 15 Respiratory Effort / Characteristics Respiratory Depth Respiratory Pattern Blood Pressure 162/77 H Blood Pressure [Left Arm] Blood Pressure Mean 105 Blood Pressure Mean [Left Arm] Blood Pressure Position Blood Pressure Position [Left Arm] Pulse Oximetry 96 96 Oxygen Delivery Method Room Air Room Air 02/15/19 22:15 02/15/19 23:31 Temperature 36.7 C 36.6 C Temperature Source Oral Oral Sepsis Recent Fever Within 48 Hours Sepsis Action Taken by Nursing Pulse Rate Pulse Rate [Apical] 74 65 Pulse Rate from SpO2 Sensor Pulse Rhythm Pulse Strength Respiratory Rate 18 16 Respiratory Effort / Characteristics Non-Labored Spontaneous Respiratory Depth Normal Respiratory Pattern Regular Blood Pressure Blood Pressure [Left Arm] 140/71 122/65 Blood Pressure Mean Blood Pressure Mean [Left Arm] 94 84 Blood Pressure Position Blood Pressure Position [Left Arm] Lying Pulse Oximetry 95 96 Oxygen Delivery Method Room Air Room Air GENERAL: Awake, alert, fatigued-appearing, in no distress HENT: Normocephalic, atraumatic. Oropharynx with dry mucous membranes and otherwise unremarkable. EYES: Normal conjunctiva. Sclera non-icteric. NECK: Supple. No nuchal rigidity. FROM. No JVD. RESPIRATORY: Scant intermittent wheeze, otherwise clear. CARDIAC: Regular rate, normal rhythm. Extremities warm and well perfused. Pulses equal. ABDOMEN: Soft, non-distended. No tenderness to palpation. No rebound or guarding. No masses. RECTAL: Deferred. MUSCULOSKELETAL: Chest examination reveals no tenderness. The back is symmetrical on inspection without obvious abnormality. There is no CVA tenderness to palpation. No joint edema. LOWER EXTREMITIES: Calves are equal size bilaterally and non-tender. No edema. No discoloration. NEURO: Normal sensorium. No sensory or motor deficits noted. SKIN: No rash or jaundice noted. Course 1823: The patient was evaluated in room B3A, and a complete history and physical examination were performed. 3: The resident Dr. Romero spoke to patient at this time who is feeling better after receiving Nitroglycerin. 1950: Dr. Romero and I discussed the patients case with Dr. Rakesh MONTOYA hospitalist. She will evaluate the patient for further management. Consultations Consultation #1: Dr. Romero and I discussed the patients case with Dr. Rakesh MONTOYA hospitalist. She will evaluate the patient for further management. Time: 19:50 Administered Medications Heparin Sodium/Dextrose (Heparin Sodium/Dextrose) 25,000 units in 500 mls @ 29 mls/hr IV .[id number] [facility]; Protocol Stop: 03/17/19 23:44 Last Admin: 02/16/19 00:28 Dose: 1,450 units/hr, 29 mls/hr Documented by: [id number] Cosigned by: [id number] Discontinued Medications Aspirin (Ecotrin) 325 mg PO [facility] Stop: 03/17/19 18:44 Last Admin: 02/15/19 18:45 Dose: Not Given Documented by: [id number] Aspirin (Aspirin Chew) 324 mg PO NOW [facility] Stop: 02/15/19 18:45 Last Admin: 02/15/19 18:49 Dose: 324 mg Documented by: [id number] Nitroglycerin (Nitrostat) 0.4 mg SL NOW [facility] Stop: 02/15/19 18:32 Last Admin: 02/15/19 18:49 Dose: 0.4 mg Documented by: [id number] Medical Decision Making Differential Diagnosis Differential diagnosis: Etiologies such as shingles, musculoskeletal pain, pericarditis, myocarditis, cardiac ischemia, pericardial tamponade, pneumonia, pneumothorax, pleural effusion, hemothorax, pleurisy, aortic pathology, pulmonary embolism, intra- abdominal process, as well as others were considered. Medical Records Attestation: I reviewed the patient's medical records. Home Medications Current Medication List: was personally reviewed by me Laboratory Data Attestation: I reviewed the patient's lab results. Result diagrams: 02/15/19 17:43 02/15/19 17:43 Lab Results 02/15/19 02/15/19 02/15/19 Range/Units 17:43 17:43 17:43 WBC 7.09 (4.8-10.8) K/uL RBC 4.52 L (4.7-6.1) M/uL Hgb 15.1 (14.0-18.0) g/dL Hct 41.0 L (42-52) % MCV 90.7 (80-100) fL MCH 33.4 (25-34) pg MCHC 36.8 H (32-36) g/dL RDW Std Deviation 47.2 H (36.4-46.3) fL RDW Coeff of [place] 14.3 (11.5-14.5) % Plt Count 246 (130-400) K/uL MPV 9.1 (7.4-10.4) fL Immature Gran % (Auto) 1.4 % Neut % (Auto) 59.6 % Lymph % (Auto) 20.2 % [place] % (Auto) 13.7 % Eos % (Auto) 4.1 % Baso % (Auto) 1.0 % Immature Gran # (Auto) 0.10 H (0.00-0.02) K/uL Neut # (Auto) 4.23 (1.4-6.5) K/uL Lymph # (Auto) 1.43 (1.2-3.4) K/uL [place] # (Auto) 0.97 H (0.11-0.59) K/uL Eos # (Auto) 0.29 (0-0.5) K/uL Baso # (Auto) 0.07 (0-0.2) K/uL PT 10.2 (9.0-12.0) Seconds INR 1.0 (0.9-1.1) APTT 26.2 (21.0-31.0) Seconds PTT Ratio 1.0 Sodium 141 (136-145) mmol/L Potassium 3.8 (3.5-5.1) mmol/L Chloride 109 H (98-107) mmol/L Carbon Dioxide 29 (21-32) mmol/L Anion Gap 4.0 (3-11) BUN 14 (7-18) mg/dl Creatinine 0.96 (0.6-1.4) mg/dl Est Cr Clr Drug Dosing 75.3 ml/min Est GFR ( Amer) 88.6 Est GFR (Non-Af Amer) 76.5 BUN/Creatinine Ratio 15.0 (10-20) Glucose 167 H (70-99) mg/dl Calcium 8.8 (8.5-10.1) mg/dl Phosphorus 2.7 (2.5-4.9) mg/dl Magnesium 2.3 (1.8-2.4) mg/dl Total Bilirubin 0.4 (0.2-1) mg/dl AST 23 (15-37) U/L ALT 37 (12-78) U/L Alkaline Phosphatase 97 (45-117) U/L Troponin I 0.050 H* (0-0.045) ng/ml NT-Pro-B Natriuret Pep 318 (0-1800) pg/ml Total Protein 7.1 (6.4-8.2) gm/dl Albumin 3.9 (3.4-5.0) gm/dl Globulin 3.2 (2.5-4.0) gm/dl Albumin/Globulin Ratio 1.2 (0.9-2) 02/15/19 Range/Units 20:00 WBC (4.8-10.8) K/uL RBC (4.7-6.1) M/uL Hgb (14.0-18.0) g/dL Hct (42-52) % MCV (80-100) fL MCH (25-34) pg MCHC (32-36) g/dL RDW Std Deviation (36.4-46.3) fL RDW Coeff of [place] (11.5-14.5) % Plt Count (130-400) K/uL MPV (7.4-10.4) fL Immature Gran % (Auto) % Neut % (Auto) % Lymph % (Auto) % [place] % (Auto) % Eos % (Auto) % Baso % (Auto) % Immature Gran # (Auto) (0.00-0.02) K/uL Neut # (Auto) (1.4-6.5) K/uL Lymph # (Auto) (1.2-3.4) K/uL [place] # (Auto) (0.11-0.59) K/uL Eos # (Auto) (0-0.5) K/uL Baso # (Auto) (0-0.2) K/uL PT (9.0-12.0) Seconds INR (0.9-1.1) APTT (21.0-31.0) Seconds PTT Ratio Sodium (136-145) mmol/L Potassium (3.5-5.1) mmol/L Chloride (98-107) mmol/L Carbon Dioxide (21-32) mmol/L Anion Gap (3-11) BUN (7-18) mg/dl Creatinine (0.6-1.4) mg/dl Est Cr Clr Drug Dosing ml/min Est GFR ( Amer) Est GFR (Non-Af Amer) BUN/Creatinine Ratio (10-20) Glucose (70-99) mg/dl Calcium (8.5-10.1) mg/dl Phosphorus (2.5-4.9) mg/dl Magnesium (1.8-2.4) mg/dl Total Bilirubin (0.2-1) mg/dl AST (15-37) U/L ALT (12-78) U/L Alkaline Phosphatase (45-117) U/L Troponin I 1.190 H* (0-0.045) ng/ml NT-Pro-B Natriuret Pep (0-1800) pg/ml Total Protein (6.4-8.2) gm/dl Albumin (3.4-5.0) gm/dl Globulin (2.5-4.0) gm/dl Albumin/Globulin Ratio (0.9-2) Imaging Data Radiologist's Impression: Radiology results as stated below per my review and the radiologist's interpretation: XR chest 1V portable CLINICAL HISTORY: chest pain COMPARISON STUDY: 03/13/2015 FINDINGS: Mild stable cardiomegaly. Prior median sternotomy. Diaphragms are smooth. Lungs are clear. IMPRESSION: Negative chest. The above report was generated using voice recognition software. It may contain grammatical, syntax or spelling errors. Electronically signed by: Viet Marin M.D. 02/15/2019 6:43 PM ECG Data Attestation: I personally reviewed and interpreted this ECG as follows: Indication: chest pain Rate (beats per minute): 76 Rhythm: sinus rhythm Findings: + other (Normal axis.) and + nonspecific-ST abn (and T wave abnormalities); no acute ischemic change Blood Pressure Blood Pressure Findings: Elevated blood pressure Blood Pressure Disposition: further management by hospitalist [facility] Narrative The patient is a pleasant 78-year-old gentleman with a past medical history of CAD, CABG, aortic valve replacement remotely who has not followed with medical care for the past 10 years presents emergency department with acute onset substernal chest pain that began at 4 PM today per hpi. On arrival the patient is fatigued appearing but no acute distress, afebrile stable vital signs. EKG unremarkable without evidence of acute ischemia. CXR negative. WBC, hemoglobin, platelets within normal limits. Chemistry without acidosis. Initial troponin elevated at 0.05. The patient was given aspirin and nitroglycerin. Delta 2- hour troponin ordered and pending. Heart score 6, moderate risk, therefore r easonable to admit for further cardiac r/o. Case was discussed by resident, Dr. Akhtar, with Dr. Cameron, [facility] [place], who will evaluate the patient for admission. Delta 2 hour troponin further elevated, admitting team aware and will order heparin. This patient was managed with the assistance of resident, Dr. Akhtar, I discussed the case with the resident, examined the patient, and confirm the findings and plan as documented in this note. Impression & Plan Non-ST elevation (NSTEMI) myocardial infarction, Chest pain, Elevated troponin Discharge Plan Visit Data *Final* Discharge Date/Time: 02/15/19 22:02 Chief Complaint: Chest Pain Stated Complaint: THINKS HAVING HEART ATTACK ED Provider: Marvin Cerna ED Midlevel Provider: Niko Akhtar Discharge Problem: Non-ST elevation (NSTEMI) myocardial infarction, Chest pain, Elevated troponin Patient Disposition: Admitted As Inpatient Discharge Instructions Interventions: ED Discharge Assessment Last Done: 02/15/19 22:02 The scribe's documentation has been prepared under my direction and personally reviewed by me in its entirety. I confirm that the note above accurately reflects all work, treatment, procedures, and medical decision making performed by me.
--- NOTE | 2019-02-15 22:22 | History & Physical Report ---
Date of Service February 15, 2019 Assessment & Plan (1) Chest pain: Substernal chest pain present over the past few weeks with worsening intensity and duration. Concern for UA/ACS. Patient with elevated troponin. EKG with no acute ischemic changes -Admit to PCU with continuous cardiac monitoring -Trend troponin -Check 2D echo -Check HgAIC and Lipid panel -NPO after midnight for possible cath -Nitro PRN -Morphine PRN -Heparin gtt -O2 PRN -Start ASA and Lipitor for now, BB prior to DC per Cardiology recommendations -Cardiology Consultation -appreciate assistance with this case -Patient will need to be established with Cardiology (2) Hypertension: Elevated BP at 162/77 -Lisinopril 10mg po daily -Continue to monitor (3) CAD (coronary artery disease): S/p 1 vessel CABG appx 10 [place] ago [place] [facility] [place] Patient does not follow routinely with Cardiology or PCP. Does not take medications. Patient with CP as above -Plan as above -Obtain [facility] Present on Admission?: Yes (4) Hx of aortic valve replacement: Bioprosthetic. No clinical evidence of failure. -Echo in AM F/E/N- Heplock. Monitor electrolytes and replete as needed. Heart healthy diet, NPO after midnight for possible cath Ppx - SCDs Code - DNR/DNI Dispo - PCU Present on Admission?: Yes History of Present Illness Chief Complaint: Chest pain Primary Care Provider: Esequiel Paige MD Mr. Francis is a 78yo male with history of CAD s/p 1V CABG and bioprosthetic AVR performed [place] [facility] 10 [place] ago. Patient does not follow routinely with a physician and does not take medications. Last seen appx 10 years ago. Patient presents today with substernal chest tightness that started at appx 16:00 this afternoon while he was sitting at rest. Pain non-radiating/non-exertional/non-pleuritic, 5/10 in severity with tingling and some radiation down the left arm. Also with some diaphoresis and family described his face becoming very red. Pain lasted "a while" then resolved. Presently without CP. He reports that over the last 1-2 weeks he has been experiencing occasional intermittent substernal chest pain. Prior to today the pain has been mild and lasted only a few minutes. He came to the ER today because of the severity and duration of the chest pain. 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 He denies exertional symptoms. No edema, weight gain or orthopnea. No dizziness, presyncope, palpitations. ER Course: ASA 325mg Allergies Allergy/AdvReac Type Severity Reaction Status Date / Time codeine Allergy Unknown "EYES GO Verified 02/15/19 18:27 SHUT AND HEAD SWELLS" Home Medications Home Medications Medication Instructions Recorded Confirmed Type No Known Home Medications 02/15/19 02/15/19 History Past Med/Surg History Medical History Vertigo (Acute) CAD (coronary artery disease) Surgical History Hx of aortic valve replacement Hx of CABG History of back surgery (Chronic) History of neck surgery Family History Other Coronary heart disease Social History Preferred Language: Macanese Feels Safe at Home: Yes Smoking Status: Current every day smoker Hx Alcohol Use: Yes Hx Substance Use: No Review of Systems Review of Systems: All systems reviewed & are unremarkable except as noted in HPI & below Physical Exam Physical Exam: General: patient resting comfortably, NAD, non-toxic in appearance, AA&O x 4 Skin: warm, dry, intact, no rashes or lesions HEENT: NC/AT, PERRL, EOMI, anicteric sclera, conjunctiva without injection, external ear normal to inspection and nontender, nares patent, moist mucus membranes, dentition intact, no oropharyngeal lesions, neck supple, trachea midline, no LAD, no thyromegaly, no JVD Heart: +S1/S2, regular, no m/r/g Lungs: equal air entry bilaterally, no rales/rhonchi/wheezes Abd: +BS, soft, NT/ND, no masses/organomegaly/ascites Ext: warm, 2+ pulses in UE/LE bilaterally, no clubbing/cyanosis or edema Neuro: nonfocal, patient AA&O x 4, speech intact, no facial droop, moving all extremities on command with equal strength 5/5 Results & Data Vital Signs (Past 12 Hours) Vital Signs Pulse Resp BP Pulse Ox 02/15/19 21:40 75 15 96 02/15/19 21:30 67 16 162/77 H 96 02/15/19 21:20 81 15 02/15/19 21:10 81 15 02/15/19 21:00 76 22 02/15/19 20:50 86 29 H 02/15/19 20:40 73 14 02/15/19 20:30 91 H 21 02/15/19 20:20 72 6 L 97 02/15/19 20:10 75 19 96 02/15/19 20:01 69 12 170/75 H 96 02/15/19 20:00 69 12 97 02/15/19 19:50 80 16 98 02/15/19 19:40 68 13 97 02/15/19 19:30 71 13 156/93 H 96 02/15/19 19:20 70 15 97 02/15/19 19:10 75 11 L 97 02/15/19 19:00 76 12 168/90 H 95 02/15/19 18:50 77 02/15/19 18:40 79 11 L 97 02/15/19 18:30 72 19 202/109 H 96 02/15/19 18:00 75 21 189/107 H 97 02/15/19 17:43 72 20 96 02/15/19 17:30 78 24 185/110 H 98 02/15/19 17:29 78 12 189/108 H 97 02/15/19 17:09 72 20 177/94 H 96 Laboratory Results Lab Results 02/15/19 02/15/19 02/15/19 Range/Units 17:43 17:43 17:43 WBC 7.09 (4.8-10.8) K/uL RBC 4.52 L (4.7-6.1) M/uL Hgb 15.1 (14.0-18.0) g/dL Hct 41.0 L (42-52) % MCV 90.7 (80-100) fL MCH 33.4 (25-34) pg MCHC 36.8 H (32-36) g/dL RDW Std Deviation 47.2 H (36.4-46.3) fL RDW Coeff of [place]ri[place] 14.3 (11.5-14.5) % Plt Count 246 (130-400) K/uL MPV 9.1 (7.4-10.4) fL Immature Gran % (Auto) 1.4 % Neut % (Auto) 59.6 % Lymph % (Auto) 20.2 % Burt % (Auto) 13.7 % Eos % (Auto) 4.1 % Baso % (Auto) 1.0 % Immature Gran # (Auto) 0.10 H (0.00-0.02) K/uL Neut # (Auto) 4.23 (1.4-6.5) K/uL Lymph # (Auto) 1.43 (1.2-3.4) K/uL Burt # (Auto) 0.97 H (0.11-0.59) K/uL Eos # (Auto) 0.29 (0-0.5) K/uL Baso # (Auto) 0.07 (0-0.2) K/uL PT 10.2 (9.0-12.0) Seconds INR 1.0 (0.9-1.1) APTT 26.2 (21.0-31.0) Seconds PTT Ratio 1.0 Sodium 141 (136-145) mmol/L Potassium 3.8 (3.5-5.1) mmol/L Chloride 109 H (98-107) mmol/L Carbon Dioxide 29 (21-32) mmol/L Anion Gap 4.0 (3-11) BUN 14 (7-18) mg/dl Creatinine 0.96 (0.6-1.4) mg/dl Est Cr Clr Drug Dosing 75.3 ml/min Est GFR ( Amer) 88.6 Est GFR (Non-Af Amer) 76.5 BUN/Creatinine Ratio 15.0 (10-20) Glucose 167 H (70-99) mg/dl Calcium 8.8 (8.5-10.1) mg/dl Phosphorus 2.7 (2.5-4.9) mg/dl Magnesium 2.3 (1.8-2.4) mg/dl Total Bilirubin 0.4 (0.2-1) mg/dl AST 23 (15-37) U/L ALT 37 (12-78) U/L Alkaline Phosphatase 97 (45-117) U/L Troponin I 0.050 H* (0-0.045) ng/ml NT-Pro-B Natriuret Pep 318 (0-1800) pg/ml Total Protein 7.1 (6.4-8.2) gm/dl Albumin 3.9 (3.4-5.0) gm/dl Globulin 3.2 (2.5-4.0) gm/dl Albumin/Globulin Ratio 1.2 (0.9-2) 02/15/19 Range/Units 20:00 WBC (4.8-10.8) K/uL RBC (4.7-6.1) M/uL Hgb (14.0-18.0) g/dL Hct (42-52) % MCV (80-100) fL MCH (25-34) pg MCHC (32-36) g/dL RDW Std Deviation (36.4-46.3) fL RDW Coeff of Enriqueta (11.5-14.5) % Plt Count (130-400) K/uL MPV (7.4-10.4) fL Immature Gran % (Auto) % Neut % (Auto) % Lymph % (Auto) % Burt % (Auto) % Eos % (Auto) % Baso % (Auto) % Immature Gran # (Auto) (0.00-0.02) K/uL Neut # (Auto) (1.4-6.5) K/uL Lymph # (Auto) (1.2-3.4) K/uL Burt # (Auto) (0.11-0.59) K/uL Eos # (Auto) (0-0.5) K/uL Baso # (Auto) (0-0.2) K/uL PT (9.0-12.0) Seconds INR (0.9-1.1) APTT (21.0-31.0) Seconds PTT Ratio Sodium (136-145) mmol/L Potassium (3.5-5.1) mmol/L Chloride (98-107) mmol/L Carbon Dioxide (21-32) mmol/L Anion Gap (3-11) BUN (7-18) mg/dl Creatinine (0.6-1.4) mg/dl Est Cr Clr Drug Dosing ml/min Est GFR ( Amer) Est GFR (Non-Af Amer) BUN/Creatinine Ratio (10-20) Glucose (70-99) mg/dl Calcium (8.5-10.1) mg/dl Phosphorus (2.5-4.9) mg/dl Magnesium (1.8-2.4) mg/dl Total Bilirubin (0.2-1) mg/dl AST (15-37) U/L ALT (12-78) U/L Alkaline Phosphatase (45-117) U/L Troponin I 1.190 H* (0-0.045) ng/ml NT-Pro-B Natriuret Pep (0-1800) pg/ml Total Protein (6.4-8.2) gm/dl Albumin (3.4-5.0) gm/dl Globulin (2.5-4.0) gm/dl Albumin/Globulin Ratio (0.9-2) Diagnostic Findings XR chest 1V portable CLINICAL HISTORY: chest pain COMPARISON STUDY: 03/13/2015 FINDINGS: Mild stable cardiomegaly. Prior median sternotomy. Diaphragms are smooth. Lungs are clear. IMPRESSION: Negative chest. The above report was generated using voice recognition software. It may contain grammatical, syntax or spelling errors. Electronically signed by: Viet Marin M.D. 02/15/2019 6:43 PM Dictated: 02/15/191842 Transcribed: 02/15/191842 Code Status & VTE Plan Code Status DNR VTE Prophylaxis Plan VTE Prophylaxis will be ordered: Yes (1) CAD (coronary artery disease) Coronary Disease-Associated Artery/Lesion type: [place] artery [place] vs. transplanted heart: [place] heart Associated angina: with unstable angina Qualified Code(s): I25.110 - Atherosclerotic heart disease of [place] coronary artery with unstable angina pectoris (2) Chest pain Chest pain type: unspecified Qualified Code(s): R07.9 - Chest pain, unspecified (3) Hypertension Hypertension type: essential hypertension Qualified Code(s): I10 - Essential (primary) hypertension
[2019-02-15] MEDS ORDERED: NITROGLYCERIN SL 0.4 MG/TAB TAB SL PRN (22:23)
[2019-02-15] MEDS ORDERED: MoRPHine SULFATE 2 MG/ML CARP IV PRN (22:23)
[2019-02-15] MEDS ORDERED: ONDANSETRON INJ 2 MG/ML 2 ML VIAL IV PRN (22:23)
[2019-02-15] MEDS ORDERED: DOCUSATE SODIUM 100 MG CAP PO PRN (22:23)
[2019-02-15] MEDS ORDERED: Heparin IV Standard *NO* Bolus IV SCH (22:30)
[2019-02-15] MEDS ORDERED: Heparin Adult STANDARD Wt-Based Dextrose 5% 25,000 units/500 mL IV SCH (23:45)
[2019-02-16 05:55] LABS: Basophils # (auto) 0.03 K/uL (0-0.2); Basophils % (auto) 0.4 %; Eosinophils # (auto) 0.29 K/uL (0-0.5); Eosinophils % (auto) 3.5 %; Hematocrit (blood only) 40.5 % (42-52); Hemoglobin 14.2 g/dL (14.0-18.0); Immature Granulocytes # (auto) 0.12 K/uL (0.00-0.02); Immature Granulocytes % (auto) 1.5 %; Lymphocytes # (auto) 0.74 K/uL (1.2-3.4); Mean Corpuscular Hgb Conc 35.1 g/dL (32-36); Mean Corpuscular Volume 92.3 fL (80-100); Mean Platelet Volume 9.3 fL (7.4-10.4); Monocytes # (auto) 1.07 K/uL (0.11-0.59); Neutrophils # (auto) 5.99 K/uL (1.4-6.5); Neutrophils % (auto) 72.6 %; Platelet Count 197 K/uL (130-400); RDW Coefficient of Variation 14.4 % (11.5-14.5); RDW Standard Deviation 48.4 fL (36.4-46.3); Red Blood Count 4.39 M/uL (4.7-6.1); White Blood Count 8.24 K/uL (4.8-10.8)
[2019-02-16 06:30] LABS: BUN Creatinine Ratio 18.6 (10-20); Creatinine Clr Calc Pharmacy 75.9 ml/min; Est GFR (African American) 90.9; Est GFR (Non-African American) 78.4; Potassium 3.9 mmol/L (3.5-5.1)
[2019-02-16 06:39] LABS: Troponin I 8.85 ng/ml (0-0.045)
[2019-02-16 07:01] LABS: Partial Thromboplastin Ratio 1.9
[2019-02-16 07:07] LABS: Partial Thromboplastin Time 52.1 Seconds (21.0-31.0)
[2019-02-16 07:21] LABS: Estimated Average Glucose 151 mg/dl; Hemoglobin A1C 6.9 % (4.5-5.6)
[2019-02-16] MEDS ORDERED: CLOPIDOGREL BISULFATE 300 MG TAB PO STA (08:37)
[2019-02-16] MEDS: ATORVASTATIN 40 MG TAB PO SCH (08:48)
[2019-02-16] MEDS: ASPIRIN 81 MG ECTAB PO SCH (08:48)
[2019-02-16] MEDS ORDERED: LISINOPRIL 10 MG TAB PO SCH (09:00)
--- NOTE | 2019-02-16 10:44 | Cardiology Consultation ---
Date of Consultation February 16, 2019 Assessment & Plan (1) Non-ST elevation (NSTEMI) myocardial infarction: 2. Bioprosthetic aortic valve 3. History of coronary artery disease post single-vessel CABG TORRES to LAD 4. Hypertension Patient here with new onset chest pain and elevated troponin consistent with NSTEMI. Plan for early invasive risk stratification. Discussed risk, benefits, alternatives of cardiac catheterization and willing to proceed. Plan to perform via left radial artery. In the interim continue heparin infusion, aspirin, loaded with clopidogrel 300 mg this a.m. Further recommendations pending findings on coronary angiography. History of Present Illness Attending Physician: Sara Hernandez MD History of Present Illness Mr. Francis is a 78 year-old man with a history of Aortic Stenosis s/p Bioprosthetic AVR 06/2010, CAD s/p CABG x 1 vessel 06/2010 (TORRES to LAD), Hypertension, Dyslipidemia, Prediabetes, Nicotine Dependence, and Medication Non-compliance seen by cardiology in the setting of NSTEMI. Patient back to baseline was in usual state of health until yesterday afternoon when developed new chest pressure which lasted about an hour and a half for presented to the ED. Pain immediately relieved with a single nitroglycerin. Has been chest pain-free since that time. Denies having similar pain in the past. On arrival EKG unremarkable, troponin minimally positive and is trended up this morning 8.85. Patient feeling well today and states at baseline. Echocardiogram reviewed at time of interview. Shows preserved LV function, normal functioning bioprosthetic aortic valve. No regional wall motion normalities. Family history: Not contributory to the patient's coronaries. Social history: Denies tobacco use. Retired. . Allergies: Codeine Prior cardiovascular studies/procedures: 1. CARDIAC CATHETERIZATION 05/11/2010 -- LMCA -- Normal. -- LAD -- 20% Proximal stenosis, 70% midvessel stenosis. -- D1 -- 70% to 80% Midvessel stenosis. -- LCx and branches -- No significant disease. -- RCA and branches -- No significant disease. 2. OPEN HEART SURGERY June 2010: -- Bioprosthetic AVR and CABG x 1 Vessel (TORRES to LAD). -- Surgery complicated by post-op A-Fib / A-Flutter. 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 Beliefs That Will Affect Care: None Current Living Situation: Spouse Other Information That Helps Us Care for You: No Feels Safe at Home: Yes Safety Concerns: Feels Safe At This Time Smoking Status: Current every day smoker Cigarettes Per Day: 10 Do You Dip or Chew Tobacco: No Second Hand Exposure: No Tobacco Cessation Education Requested by Patient: No Hx Alcohol Use: Yes Alcohol type: beer Hx Substance Use: No Review of Systems Review of Systems: All systems reviewed & are unremarkable except as noted in HPI & below Physical Exam Physical Exam: General: Comfortable, no acute distress Eyes: Sclerae anicteric, extraocular movements intact HENT: Oropharynx clear mucous membranes moist Neck: Normal carotid upstrokes, no bruits. No JVD. Lungs: Clear to auscultation bilaterally, no rhonchi or wheezes Cardiac: Regular rate, 2/6 systolic murmur, crisp prosthetic closure Vascular: 2+ radial, DP and PT pulses. No varicosities. Abdomen: Soft, nontender, nondistended, positive bowel sounds. Extremities: Well perfused, no peripheral edema Skin: No rashes or lesions. Neuro: Nonfocal Psych: Alert orient x3, normal affect and mood Results & Data Vital Signs (Past 12 Hours) Vital Signs Temp Pulse Resp BP Pulse Ox 02/16/19 07:40 36.5 C 85 19 135/87 98 02/16/19 04:00 36.5 C 70 20 126/77 97 02/15/19 23:31 36.6 C 65 16 122/65 96
[2019-02-16] MEDS ORDERED: fentaNYL citrate 100 MCG/2 ML VIAL ONE (11:42)
[2019-02-16] MEDS ORDERED: NITROGLYCERIN/D5W 100MCG/ML 20ML SYR ONE (11:42)
[2019-02-16] MEDS ORDERED: MIDAZOLAM HCL 1 MG/ML 2ML VIAL ONE (11:42)
[2019-02-16] MEDS ORDERED: HEPARIN (PORCINE) 1000 UNIT/ML 10 ML (CATH LAB USE ONLY) ONE (11:42)
[2019-02-16] MEDS ORDERED: NiCARDipine HCL INJ 2.5 MG/ML 10 ML AMP ONE (11:42)
[2019-02-16] MEDS ORDERED: CLOPIDOGREL BISULFATE 300 MG TAB ONE (12:56)
--- NOTE | 2019-02-16 12:58 | Post Anesthesia Assessment ---
Date of Service February 16, 2019 Post Sedation Assessment Vital Signs Temp Pulse Pulse Resp BP BP Pulse Ox 02/16/19 10:54 36.6 C 67 19 132/72 96 02/16/19 07:40 36.5 C 85 19 135/87 98 02/16/19 04:00 36.5 C 70 20 126/77 97 02/15/19 23:31 36.6 C 65 16 122/65 96 02/15/19 22:15 36.7 C 74 18 140/71 95 02/15/19 21:40 75 15 96 02/15/19 21:30 67 16 162/77 H 96 02/15/19 21:20 81 15 02/15/19 21:10 81 15 02/15/19 21:00 76 22 02/15/19 20:50 86 29 H 02/15/19 20:40 73 14 02/15/19 20:30 91 H 21 02/15/19 20:20 72 6 L 97 02/15/19 20:10 75 19 96 02/15/19 20:01 69 12 170/75 H 96 02/15/19 20:00 69 12 97 02/15/19 19:50 80 16 98 02/15/19 19:40 68 13 97 02/15/19 19:30 71 13 156/93 H 96 02/15/19 19:20 70 15 97 02/15/19 19:10 75 11 L 97 02/15/19 19:00 76 12 168/90 H 95 02/15/19 18:50 77 02/15/19 18:40 79 11 L 97 02/15/19 18:30 72 19 202/109 H 96 02/15/19 18:00 75 21 189/107 H 97 02/15/19 17:43 72 20 96 02/15/19 17:30 78 24 185/110 H 98 02/15/19 17:29 78 12 189/108 H 97 02/15/19 17:09 72 20 177/94 H 96 Recovery Score Activity: Moves 4 extremities Respiration: Deep Breath/Cough Circulation: +/-20% PreAnes Value Consciousness: Fully Awake Oxygen Saturation: O2 needed for >90% Discharge Sedation Level of Care: Fast Track Phase II Post Sedation Plan On clinical assessment, the patient appears to have tolerated the sedation wit hout complications. Patient is recovering as anticipated. Patient will continue to be monitored by nursing and may be discharged when sedation discharge criteria are met per below protocol. Upon Completions of procedure and additional 15 minutes continue every 5 minute vital signs and the P.A.R. score; then discharge to a Phase I or Fast Track to Phase II per the following guidelines: * Discharge Patient to appropriate Phase II area if PAR is 8 or greater or return to pre- procedure baseline. The post - procedure orders will be as directed. * If PAR score is less than 8 or not return to pre-procedure baseline then patient will follow Phase I monitoring till PAR is reached for Phase II. The Phase I may be done in procedure room or may call to secure a Phase I area. * If naloxone or flumazenil are used for reversal, hold in Phase I for continued monitoring from when last reversal dose was given for a minimum of 60 minutes or longer pending the nurse and/or physician discretion of patient condition before discharge to Phase II. Please call the Sedation Physician to re-evaluate and complete post-note for discharge to Phase II area. Do NOT discharge from procedure sedation or Phase 1 until post- sedation evaluation note is complete by procedure /sedation MD Sedation Discharge Instructions to be given to the patient at discharge to home.
--- NOTE | 2019-02-16 12:58 | Pre Anesthesia Assessment ---
Date of Service February 16, 2019 Pre Sedation Assessment Vital Signs Temp Pulse Pulse Resp BP BP Pulse Ox 02/16/19 10:54 36.6 C 67 19 132/72 96 02/16/19 07:40 36.5 C 85 19 135/87 98 02/16/19 04:00 36.5 C 70 20 126/77 97 02/15/19 23:31 36.6 C 65 16 122/65 96 02/15/19 22:15 36.7 C 74 18 140/71 95 02/15/19 21:40 75 15 96 02/15/19 21:30 67 16 162/77 H 96 02/15/19 21:20 81 15 02/15/19 21:10 81 15 02/15/19 21:00 76 22 02/15/19 20:50 86 29 H 02/15/19 20:40 73 14 02/15/19 20:30 91 H 21 02/15/19 20:20 72 6 L 97 02/15/19 20:10 75 19 96 02/15/19 20:01 69 12 170/75 H 96 02/15/19 20:00 69 12 97 02/15/19 19:50 80 16 98 02/15/19 19:40 68 13 97 02/15/19 19:30 71 13 156/93 H 96 02/15/19 19:20 70 15 97 02/15/19 19:10 75 11 L 97 02/15/19 19:00 76 12 168/90 H 95 02/15/19 18:50 77 02/15/19 18:40 79 11 L 97 02/15/19 18:30 72 19 202/109 H 96 02/15/19 18:00 75 21 189/107 H 97 02/15/19 17:43 72 20 96 02/15/19 17:30 78 24 185/110 H 98 02/15/19 17:29 78 12 189/108 H 97 02/15/19 17:09 72 20 177/94 H 96 Cardiovascular RRR, no murmur, no edema Respiratory normal respiratory effort, lungs clear to auscultation Pre-Sedation Airway Assessment Smoking Status: Current every day smoker Hx Sleep Apnea: No Hx Difficult Intubation: No Short, Thick Neck: No Thyromental Distance: > or= 3.5 Finger Breadths Oral Cavity: + WNL Mallampati Class: III Procedure Planning Contraindications for Sedation: none Current Medications Reviewed: Yes Notes The planned sedation has been discussed with the patient. Informed Consent was obtained. I have identified the patient, determined the appropriateness of sedation and have assessed the patient immediately prior to the procedure. All medicine(s) and interventions are by my order.
[2019-02-16] MEDS ORDERED: ONDANSETRON INJ 2 MG/ML 2 ML VIAL IV PRN (13:08)
--- NOTE | 2019-02-16 13:08 | Cardiac Catheterization ---
Cardiac Cath Procedure Full Procedure Date February 16, 2019 Pre-Procedure Diagnosis Pre-Procedure Diagnosis: Non STEMI AUC Score AUC Score: 8 Post-Procedure Diagnosis Post-Procedure Diagnosis: Severe CAD Procedure(s) Performed Procedure(s) Performed: Coronary Angiography, Drug Eluting Stent and Bypass Graft Angiography Keyseater Operator Esequiel Rios MD Entry Table Operator(s) Glunt Estimated Blood Loss Estimated Blood Loss: 10 Medication(s) Medication(s): Clopidogrel, Fentanyl, Heparin, Lidocaine 1%, Nicardipine, Nitroglycerin and Versed Summary of Findings Indication: High risk NSTEMI Access: 6 Fr left radial artery Catheters: JR4, JL4, RORY; EBU 3.75 guide Findings: LM -20 to 30% distal prior to bifurcation, LAD -moderate caliber vessel, proximal luminal irregularities, 50-60 % mid segment disease just after bifurcation with first diagonal, competitive flow in mid segment from TORRES. 30% ostial first diagonal. Circumflex -30 to 40% ostial stenosis, mid segment luminal irregularities. OM1 without segment disease, OM 2 with 95+% focal acute stenosis and distal LIZ II flow RCA -dominant, 30% ostial/proximal disease, 20% mid segment disease, distal luminal irregularities TORRES to LAD widely patent. Distal LAD after anastomosis without significant disease. -- PCI -- Antithrombotic therapy: Heparin, clopidogrel Procedure: Left main cannulated with EBU 3.75 guide Movie Shot Cameraman 50 wire passed across lesion into distal vessel OM 2 lesion predilated with 2.0 compliant balloon Dilated lesion stented with 2.5 x 18 mm Devin drug-eluting stent Stent post-dilated with stent balloon IC vasodilators administered for spasm Post procedure LIZ 3 flow, stent well expanded with minimal residual stenosis and no apparent cardiac complications. Arterial Closure: TR with Summary: 1. Severe 2 vessel coronary artery disease - 95+% acute proximal OM 2 with distal LIZ II flow 60% mid LAD after first diagonal 2. Patent TORRES to LAD 3. Successful PCI of proximal to mid OM 2 with single drug-eluting stent (2.5 x 18 mm Devin). Recommendations: To PCU for continued monitoring Loaded with clopidogrel 300mg in recyclable products sorter Continue dual-antiplatelet therapy for at least one year Continue statin, and ASCVD risk factor modification Consult cardiac Rehab Hemodynamics Rest Ao:: 95/59/75 Final Ao: 107/64/83 LV: -- Recommendations Recommendations: PCI without planned CABG Specimens Specimens: None Radiation Exposure (mGy) 3266 Contrast (mls) 140 Fluids (cc crystalloids) Fluids (cc crystalloids): 85 Drains Drains: None Anesthesia Moderate Procedural Complication(s) None Disposition PCU ACC Data: Real Estate Clerk Cardiac Status Clinical evaluation leading to the procedure CAD Presenation: Non STEMI Anginal Classification: CCS IV Heart Failure: No Cardiogenic Shock within 24 Hours: No Cardiac Arrest within 24 Hours: No Imaging Studies Past 6 Months: Yes Stress Studies Past 6 Months: No Diagnostic Physicians Name: Esequiel Rios MD Status: Elective Closure Device Percutaneous Entry Location: Radial Closure Device: Radial Band Recommendations: PCI without planned CABG PCI Indication: PCI for high risk Non-RAYMOND Lesion Segment Name: OM2 Culprit Artery: Yes Stenosis Prior to Rx (%): 95 Chronic Total Occlusion: No IVUS: No Pre-Procedure LIZ Flow: 2 Previously Treated Lesion: No Lesion Complexity: Non-High/Non-C Lesion Length (mm): 10 Thrombus Present: Yes Bifurcation Lesion: No Guidewire Across Lesion: Stenosis Post-Procedure (%): 0 Post-Procedure LIZ Flow: 3 Devices(s) Deployed: Yes Yes Intraprocedure Events Significant Disection: No Perforation: No
[2019-02-16] MEDS ORDERED: SODIUM CHLORIDE 0.9% 1000ML 1,000 ML IV SCH (13:15)
--- NOTE | 2019-02-16 13:39 | Family Medicine Progress Note ---
Date of Service February 16, 2019 Assessment & Plan (1) Non-ST elevation (NSTEMI) myocardial infarction: 78 y/o M with h/o CAD S/p 1 vessel CABG appx 10 years ago at [facility] [place], who has stopped taking his meds presented with few wks of chest pain here with elevated troponin in ED NSTEMI s/p [facility] with MIKE placement on 02/16/19 -Loaded with clopidogrel 300mg in cathead operator. To continue dual-antiplatelet therapy for at least one year -Restarted on statin and aspirin -Lisinopril added. -Will add b mildred as well if BP tolerated CAD (coronary artery disease): . Patient does not follow routinely with Cardiology or PCP. Does not take medications. Patient with CP as above -Plan as above -Obtain [facility] [place] records Hypertension: -Lisinopril 10mg po daily Hx of aortic valve replacement: Bioprosthetic. No clinical evidence of failure. -Echo pending F/E/N- Heplock. Monitor electrolytes and replete as needed. Heart healthy diet, Ppx - SCDs Code - DNR/DNI Dispo - PCU Subjective No further chest pain. no shortness of breath. slept well overnight night. Physical Exam Constitutional: WD/WN, vitals as above Respiratory: normal respiratory effort, lungs clear to auscultation Cardiovascular: RRR, no murmur, no edema Gastrointestinal (Abdomen): normal bowel sounds, soft, nontender, no hepatosplenomegaly Results & Data Vital Signs (Past 12 Hours) Vital Signs Temp Pulse Resp BP Pulse Ox 02/16/19 10:54 36.6 C 67 19 132/72 96 02/16/19 07:40 36.5 C 85 19 135/87 98 02/16/19 04:00 36.5 C 70 20 126/77 97
--- NOTE | 2019-02-17 08:52 | Cardiology Progress Note ---
Date of Service February 17, 2019 Assessment & Plan (1) Non-ST elevation (NSTEMI) myocardial infarction: Patient underwent PCI to OM 2 yesterday. No evidence of complication. No recurrent symptoms. (2) Coronary artery disease: He has preserved LV systolic function. He did have a small myocardial infarction related to disease in the OM 2. I think he would benefit from the following medical regimen: Atorvastatin 80 mg daily, aspirin 81 mg daily, Plavix 75 mg daily, metoprolol succinate 25 mg daily I do not believe he requires lisinopril at this point given his preserved LV systolic function. This can be readdressed in the outpatient setting depending on his hemodynamics. (3) Hx of aortic valve replacement: This appears to be functioning well on his echocardiogram Subjective The patient is feeling well today. Has been amatory around the [place] without recurrent symptoms of chest discomfort. No breathing difficulty. No dizziness or lightheadedness. No pain at the left radial access site. Review of Systems Review of Systems: Per HPI Physical Exam Physical Exam: The patient is alert and oriented. Mood and affect appeared normal. He answered all questions appropriately. HEENT: Pupils are equal and reactive to light and accommodation. Extraocular movements are intact. The sclerae are anicteric. Neuro: Cranial nerves intact Neck: Patient's neck is supple. He has palpable carotid pulses bilaterally without bruits on auscultation. There is no evidence of jugular venous distention. The thyroid is not enlarged. Lungs: Clear to auscultation bilaterally. He has good air movement without use of accessory muscles. No rales wheezes or rhonchi. Cardiac: Heart demonstrates a regular rate and rhythm. Normal S1 and S2. Crescendo systolic murmur. Extremities: There was no evidence of hypoperfusion. There is no cyanosis or clubbing. There is no edema. Left radial access site without ecchymosis. Good perfusion of the left hand. Palpable radial pulse. Skin: I did not appreciate any rashes on examination today. Atrial fibrillation Results & Data Vital Signs (Past 12 Hours) Vital Signs Temp Pulse Pulse Resp BP Pulse Ox 02/17/19 07:52 36.6 C 77 19 134/84 94 02/17/19 02:56 36.6 C 65 16 110/66 94 02/17/19 00:00 88 02/16/19 23:00 36.7 C 70 16 122/56 L 95 Laboratory Results Abnormal Lab Results 02/16/19 02/16/19 12:44 13:58 Activ Coag Time Kaolin 219 H Troponin I 9.030 H*
[2019-02-17] MEDS ORDERED: METOPROLOL SUCC 25MG EXT REL TAB PO SCH (09:00)
[2019-02-17] MEDS ORDERED: CLOPIDOGREL BISULFATE 75 MG TAB PO SCH (09:00)
[2019-02-17] MEDS: ATORVASTATIN 40 MG TAB PO SCH (09:38)
[2019-02-17] MEDS: ASPIRIN 81 MG ECTAB PO SCH (09:39)
--- NOTE | 2019-02-17 15:00 | Discharge Summary ---
Date of Service February 17, 2019 Admission HPI Per Admitting Provider Mr. Francis is a 78yo male with history of CAD s/p 1V CABG and bioprosthetic AVR performed at [facility] appx 10 years ago. Patient does not follow routinely with a physician and does not take medications. Last seen appx 10 years ago. Patient presents today with substernal chest tightness that started at appx 16:00 this afternoon while he was sitting at rest. Pain non-radiating/non-exertional/non-pleuritic, 5/10 in severity with tingling and some radiation down the left arm. Also with some diaphoresis and family described his face becoming very red. Pain lasted "a while" then resolved. Presently without CP. He reports that over the last 1-2 weeks he has been experiencing occasional intermittent substernal chest pain. Prior to today the pain has been mild and lasted only a few minutes. He came to the ER today because of the severity and duration of the chest pain. 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 He denies exertional symptoms. No edema, weight gain or orthopnea. No dizziness, presyncope, palpitations. ER Course: ASA 325mg Principal Diagnosis NSTEMI Discharge Exam Constitutional WD/WN, vitals as above Respiratory normal respiratory effort, lungs clear to auscultation Cardiovascular RRR, no murmur, no edema Gastrointestinal (Abdomen) normal bowel sounds, soft, nontender, no hepatosplenomegaly Discharge Data Allergies Allergy/AdvReac Type Severity Reaction Status Date / Time codeine Allergy Unknown "EYES GO Verified 02/15/19 18:27 SHUT AND HEAD SWELLS" Consultations 02/15/19 19:56 ED Decision to Admit Stat 02/15/19 22:23 Consult Cardiology Routine 02/16/19 13:10 Consult Cardiac Rehabilitation Routine Procedures Performed Operation Date: 02/16/19 12:00 Actual Procedures p Cath, Cors with Grafts (no LV) - Reji Rios MD s Cineradiography w/Routine Exam(Not Applicable) - Reji Rios MD s Drug Eluting Stent SGl Vessel(Not Applicable) - Reji Rios MD Ordered Studies 02/16/19 11:18 CL Cath Imgs for PACS use only Routine Hospital Course (1) Non-ST elevation (NSTEMI) myocardial infarction: 78 y/o M with h/o CAD S/p 1 vessel CABG appx 10 years ago at [facility], who has stopped taking his meds presented with few wks of chest pain here with elevated troponin in ED NSTEMI s/p [facility] with MIKE placement on 02/16/19 -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 -To continue dual-antiplatelet therapy for at least one year -Restarted on statin and aspirin -Metoprolol succinate 25mgs daily. -Echo with no wall motion abnormality. Hypertension: -Metoprolol succinate 25mgs daily. Hx of aortic valve replacement: Bioprosthetic. No clinical evidence of failure. -Echo with Well placed valve. Total Time Total Time Spent Total Time Spent (In Minutes): 35 Discharge Plan Discharge Items Patient Disposition: Home - Self-Care Reason For Visit: CP,NSTEMI Discharge Diagnosis: NSTEMI Discharge Goals: Improve disease control Activity: As commented below Activity Comment: see comment in additional instruction Non-emergency contact: Primary Care Provider Call non-emergency contact if: you have any medication questions, your symptoms worsen, you have a fever, your temperature is above 100.5, your wound has increased redness, your wound has increased drainage and your wound pain has increased Follow-up/Referrals: Reji Paige MD [Primary Care Provider] - Diet: Heart Healthy and Low Sodium (2gm) Addtl Provider Instructions: Keep the bandage on the wrist till tomorrow. Then put bandaid for 3 days. You can shower but No bathing, swimming or hot tubs. No lifting heavier than a gallon of milk. Please call if notice any swelling, oozing, redness at the site of cath. If any bleeding occurs from the cath site - hold pressure and call 911. Keep follow up with cardiology - Please call Dr. Rios to schedule appointment. Prescriptions: New atorvastatin 40 mg Tablet 80 mg PO QAM Qty: 60 RF: 0 clopidogrel 75 mg Tablet 75 mg PO QAM Qty: 30 RF: 0 aspirin [Ecotrin Low Strength] 81 mg Tablet,Delayed Release (Dr/Ec) 81 mg PO QAM Qty: 1 RF: 0 metoprolol succinate 25 mg Tablet Extended Release 24 Hr 25 mg PO QAM Qty: 30 RF: 0 No Action No Known Home Medications RF: 0 Stand-Alone Forms: Sqrl, Work/School Release (Inpt) Krames/Other Patient Handouts: Clopidogrel Bisulfate Oral tablet, Metoprolol Succinate Oral tablet extended-release, Stent Coronary, Heart Attack Dc Discharge Orders: Discharge Order (Routine); Ordered 02/17/19 Ordered By: Sara Hernandez Admission Data Admit Date/Time: 02/15/19 21:30 Attending Provider: Sara Hernandez Admit Provider: Padmini Cameron Primary Care Provider: Reji Paige Other Providers: Padmini Cameron ; Yousif Sandoval ; Antonio Duque ; Edgard Whitehead ; Waldemar Ren ; Tal Adler Jr ; Fady Figueredo ; Tamar Ferrari ; Marce Allen ; Reji Rios ; Reji Karimi ; Frederic Escamilla ; Nate Gr ; Leann Varma ; Fawn Doshi Service: Telemetry Other Interventions: Discharge Summary Assessment (RN) Last Done: 02/17/19 10:24 DC Date/Time DO NOT enter until pt leaves facility: 02/17/19 12:00
== END 2019-02-17 12:00 | disposition home or self-care (01) | DRG 247 ==
LOC: ED 16:59 → SUATTDRO 21:30 → 2E 21:30
PROC: CLB.CCG (2019-02-16 12:00)

== ENCOUNTER 2019-04-22 04:09 | Inpatient (IN) ==
[2019-04-22] MEDS ORDERED: NITROGLYCERIN SL 0.4 MG/TAB TAB SL PRN ×2 (04:31→07:07)
[2019-04-22 04:49] LABS: Basophils # (auto) 0.09 K/uL (0-0.2); Basophils % (auto) 1.2 %; Eosinophils # (auto) 0.51 K/uL (0-0.5); Eosinophils % (auto) 6.8 %; Hematocrit (blood only) 41.6 % (42-52); Hemoglobin 14.2 g/dL (14.0-18.0); Immature Granulocytes # (auto) 0.08 K/uL (0.00-0.02); Immature Granulocytes % (auto) 1.1 %; Lymphocytes # (auto) 1.68 K/uL (1.2-3.4); Lymphocytes % (auto) 22.5 %; Mean Corpuscular Hgb Conc 34.1 g/dL (32-36); Mean Corpuscular Volume 95.2 fL (80-100); Mean Platelet Volume 9.2 fL (7.4-10.4); Monocytes # (auto) 0.74 K/uL (0.11-0.59); Monocytes % (auto) 9.9 %; Neutrophils # (auto) 4.37 K/uL (1.4-6.5); Neutrophils % (auto) 58.5 %; Platelet Count 206 K/uL (130-400); RDW Coefficient of Variation 15.4 % (11.5-14.5); Red Blood Count 4.37 M/uL (4.7-6.1); White Blood Count 7.47 K/uL (4.8-10.8)
[2019-04-22 05:40] LABS: Alanine Aminotransferase 32 U/L (12-78); Albumin Globulin Ratio 1.2 (0.9-2); Albumin Level 3.7 gm/dl (3.4-5.0); Alkaline Phosphatase 92 U/L (45-117); BUN Creatinine Ratio 15.6 (10-20); Bilirubin,Total 0.4 mg/dl (0.2-1); Blood Urea Nitrogen 15 mg/dl (7-18); Calcium 9.1 mg/dl (8.5-10.1); Carbon Dioxide 26 mmol/L (21-32); Chloride 108 mmol/L (98-107); Creatinine Clr Calc Pharmacy 73.4 ml/min; Est GFR (African American) 87.5; Est GFR (Non-African American) 75.5; Globulin 3.2 gm/dl (2.5-4.0); Glucose 166 mg/dl (70-99); Total Protein 6.9 gm/dl (6.4-8.2); Troponin I < 0.015 ng/ml (0-0.045)
[2019-04-22 05:46] LABS: Potassium 3.8 mmol/L (3.5-5.1); Sodium 142 mmol/L (136-145)
[2019-04-22 05:50] LABS: Aspartate Aminotransferase 19 U/L (15-37)
--- NOTE | 2019-04-22 05:57 | History & Physical Report ---
Date of Service April 22, 2019 Assessment & Plan (1) Substernal chest pain relieved by nitroglycerin: Substernal chest pain relieved by sublingual nitroglycerin/unstable angina/CAD/hypertension/history of CABG/history of NV/status post recent coronary artery stent 02/15/2019- Give aspirin 324 mg p.o. now. Continue clopidogrel 75 mg p.o. every morning. Continue metoprolol succinate 25 mg p.o. every morning. Start heparin drip standard dose no bolus per protocol. Consult Dr. Esequile Rios his portable machine cutter. Present on Admission?: Yes (2) Coronary artery disease: See above Present on Admission?: Yes (3) Non-ST elevation (NSTEMI) myocardial infarction: History of NSTEMI Present on Admission?: Yes (4) Hypertension: See above see above Present on Admission?: Yes (5) Hx of aortic valve replacement: Noted Present on Admission?: Yes (6) Hx of CABG: See above Present on Admission?: Yes (7) Hyperlipidemia LDL goal <70: See above continue atorvastatin 80 mg every morning Present on Admission?: Yes History of Present Illness Chief Complaint: The patient presents to the emergency department with acute onset of chest pain and left arm pain similar to his previous NV on 02/15/2019. Primary Care Provider: Esequiel Paige MD The patient is a 78-year-old male with past medical history including CAD status post NV on 02/15/2019 and placement of coronary artery stent. His symptoms were completely relieved by sublingual nitroglycerin x1. At this time in ED his symptoms are still resolved. EKG shows persistent T wave inversions in leads I and aVL and V6 as before, but also demonstrates T wave inversion in lead V5. We will place patient on heparin drip standard dose without bolus per protocol. Continue aspirin 81 mg daily, begin 324 now. Continue clopidogrel 75 mg every morning and metoprolol succinate 25 mg p.o. every morning. Allergies Allergy/AdvReac Type Severity Reaction Status Date / Time codeine Allergy Unknown "EYES GO Verified 04/22/19 05:38 SHUT AND HEAD SWELLS" Home Medications Home Medications Medication Instructions Recorded Confirmed Type aspirin [Ecotrin Low Strength] 81 mg PO QAM #1 tab 02/17/19 Rx atorvastatin 80 mg PO QAM #60 tab 02/17/19 Rx clopidogrel 75 mg PO QAM #30 tab 02/17/19 Rx metoprolol succinate 25 mg PO QAM #30 tab 02/17/19 Rx Past Med/Surg History Medical History Near syncope (Acute) Abdominal pain (Acute) Dizziness (Acute) Nausea, vomiting, and diarrhea (Acute) Vertigo (Acute) CAD (coronary artery disease) Surgical History Hx of aortic valve replacement Hx of CABG History of back surgery (Chronic) History of neck surgery Family History Other Coronary heart disease Social History Preferred Language: Tongan Communication Ability: Effective Beliefs That Will Affect Care: None Current Living Situation: Spouse Feels Safe at Home: Yes Smoking Status: Current every day smoker Cigarettes Per Day: 10 Second Hand Exposure: No Hx Alcohol Use: Yes Alcohol type: beer Hx Substance Use: No Review of Systems Review of Systems: The patient denies palpitations, cough, lower extremity swelling, sore throat, fevers, chills, sweats, weight change, nausea, vomiting, diarrhea , constipation, abdominal pain, pelvic pain, blood in urine or stool, dysuria, urinary frequency or urgency, lightheadedness, dizziness, headache, memory loss, loss of consciousness, rash, abnormal bruising or bleeding, imbalance, focal or generalized weakness, numbness or tingling in arms or legs, generalized arthralgias or myalgias, back or neck pain, or night sweats. The review of systems is otherwise negative other than for that already noted above, and at least 10 systems have been reviewed. Physical Exam Physical Exam: The patient is awake, alert and oriented 3, well developed and well nourished, normocephalic and atraumatic, lying in bed and in no acute distress. HEENT--PERRL, EOMI, mucous membranes and oropharynx dry. Neck--supple. No JVD. No bruits. Thyroid normal, trachea midline, no adenopathy. Heart--normal S1 and S2. No murmurs, rubs or gallops. Lungs--clear bilaterally, no respiratory distress, no accessory muscle use. Abdomen--normal bowel sounds and soft. Nontender. Nondistended, no hernias or masses, no organomegaly. Extremities--no cyanosis or clubbing. No edema. There are good distal pulses b/l. Dermatologic--normal skin turgor, normal color, no abnormal lymph nodes, no rash. Neurologic--cranial nerves II through XII grossly intact. Rheumatologic--normal range of motion. Psychiatric--normal affect. Results & Data Vital Signs (Past 12 Hours) Vital Signs Temp Pulse Pulse Resp BP BP Pulse Ox 04/22/19 04:59 59 L 18 148/66 H 93 04/22/19 04:45 92 04/22/19 04:11 98.1 F 59 L 20 152/83 H 98 Laboratory Results Laboratory Results WBC 7.47 K/uL (4.8-10.8) 04/22/19 04:37 RBC 4.37 M/uL (4.7-6.1) L 04/22/19 04:37 Hgb 14.2 g/dL (14.0-18.0) 04/22/19 04:37 Hct 41.6 % (42-52) L 04/22/19 04:37 MCV 95.2 fL (80-100) 04/22/19 04:37 MCH 32.5 pg (25-34) 04/22/19 04:37 MCHC 34.1 g/dL (32-36) 04/22/19 04:37 RDW Std Deviation 54.0 fL (36.4-46.3) H 04/22/19 04:37 RDW Coeff of [place] 15.4 % (11.5-14.5) H 04/22/19 04:37 Plt Count 206 K/uL (130-400) 04/22/19 04:37 MPV 9.2 fL (7.4-10.4) 04/22/19 04:37 Immature Gran % (Auto) 1.1 % 04/22/19 04:37 Neut % (Auto) 58.5 % 04/22/19 04:37 Lymph % (Auto) 22.5 % 04/22/19 04:37 [place] % (Auto) 9.9 % 04/22/19 04:37 Eos % (Auto) 6.8 % 04/22/19 04:37 Baso % (Auto) 1.2 % 04/22/19 04:37 Immature Gran # (Auto) 0.08 K/uL (0.00-0.02) H 04/22/19 04:37 Neut # (Auto) 4.37 K/uL (1.4-6.5) 04/22/19 04:37 Lymph # (Auto) 1.68 K/uL (1.2-3.4) 04/22/19 04:37 [place] # (Auto) 0.74 K/uL (0.11-0.59) H 04/22/19 04:37 Eos # (Auto) 0.51 K/uL (0-0.5) H 04/22/19 04:37 Baso # (Auto) 0.09 K/uL (0-0.2) 04/22/19 04:37 PT 10.7 Seconds (9.0-12.0) 04/22/19 04:37 INR 1.0 (0.9-1.1) 04/22/19 04:37 APTT 24.2 Seconds (21.0-31.0) 04/22/19 04:37 PTT Ratio 0.9 04/22/19 04:37 Sodium 142 mmol/L (136-145) 04/22/19 04:37 Potassium 3.8 mmol/L (3.5-5.1) 04/22/19 04:37 Chloride 108 mmol/L (98-107) H 04/22/19 04:37 Carbon Dioxide 26 mmol/L (21-32) 04/22/19 04:37 Anion Gap 8.0 (3-11) 04/22/19 04:37 BUN 15 mg/dl (7-18) 04/22/19 04:37 Creatinine 0.97 mg/dl (0.6-1.4) 04/22/19 04:37 Est Cr Clr Drug Dosing 73.4 ml/min 04/22/19 04:37 Est GFR ( Amer) 87.5 04/22/19 04:37 Est GFR (Non-Af Amer) 75.5 04/22/19 04:37 BUN/Creatinine Ratio 15.6 (10-20) 04/22/19 04:37 Glucose 166 mg/dl (70-99) H 04/22/19 04:37 Calcium 9.1 mg/dl (8.5-10.1) 04/22/19 04:37 Total Bilirubin 0.4 mg/dl (0.2-1) 04/22/19 04:37 AST 19 U/L (15-37) 04/22/19 04:37 ALT 32 U/L (12-78) 04/22/19 04:37 Alkaline Phosphatase 92 U/L (45-117) 04/22/19 04:37 Troponin I < 0.015 ng/ml (0-0.045) 04/22/19 04:37 Total Protein 6.9 gm/dl (6.4-8.2) 04/22/19 04:37 Albumin 3.7 gm/dl (3.4-5.0) 04/22/19 04:37 Globulin 3.2 gm/dl (2.5-4.0) 04/22/19 04:37 Albumin/Globulin Ratio 1.2 (0.9-2) 04/22/19 04:37 Lipase 364 U/L (73-393) 04/22/19 04:37 Code Status & VTE Plan Code Status Full code VTE Prophylaxis Plan VTE Prophylaxis will be ordered: Yes PG Care Time/CCT Total # of Minutes Spent Total Time Spent with Patient: Total time spent is greater than 50% in coordination of care (as documented) at patient's floor/unit and/or counseling patient: (1) Hypertension Hypertension type: essential hypertension Qualified Code(s): I10 - Essential (primary) hypertension
[2019-04-22 05:58] LABS: Partial Thromboplastin Ratio 0.9; Partial Thromboplastin Time 24.2 Seconds (21.0-31.0); Prothrombin Time 10.7 Seconds (9.0-12.0)
[2019-04-22] MEDS ORDERED: ASPIRIN 81 MG CHEW PO STA (06:01)
[2019-04-22] MEDS ORDERED: HEPARIN 25000 UNIT/500 ML D5W IV ONE (06:11)
[2019-04-22] MEDS: Heparin IV Standard *NO* Bolus IV SCH ×2 (06:20→07:54)
--- NOTE | 2019-04-22 06:40 | Emergency Department Note ---
Entered by Nate Donahue acting as a scribe for Radha Winston DO History of Present Illness General Chief complaint: Chest Pain Stated complaint: CHEST PAIN,LEFT ARM PAIN Time Seen by Provider: 04/22/19 04:20 Source: patient History of Present Illness Provider complaint: Chest pain Onset (ago): day(s) (Yesterday afternoon) Location: chest Radiation: extremity (Left upper) Severity: similar to prior episodes Pain Consistency: + other (Worsening) Quality: + other (Tightness) Associated symptoms: no diaphoresis, no nausea/vomiting and no shortness of breath The patient is a 78 year old male who presents to the Emergency Room with complaints of worsening chest tightness that started yesterday afternoon. The patient states that the tightness was mild initially, but was severe enough to wake him up this morning. He also notes that he has left arm numbness and the feeling of "needles" in his legs. The patient reports that he had just had a stent placed on February 15, 2019 and these symptoms felt similar to his past NH. The patient denies any nausea, shortness of breath, diaphoresis, urinary symptoms, abdominal pain, or changes in bowel movements. The patient did not try any medications at home to try to relieve the pain and notes he does not have any Nitroglycerin. The patient admits that he does smoke cigarettes. Home Medications Home Medications Medication Instructions Recorded Confirmed Type aspirin [Ecotrin Low Strength] 81 mg PO QAM #1 tab 02/17/19 Rx atorvastatin 80 mg PO QAM #60 tab 02/17/19 Rx clopidogrel 75 mg PO QAM #30 tab 02/17/19 Rx metoprolol succinate 25 mg PO QAM #30 tab 02/17/19 Rx Allergies Allergy/AdvReac Type Severity Reaction Status Date / Time codeine Allergy Unknown "EYES GO Verified 04/22/19 05:38 SHUT AND HEAD SWELLS" Past Med/Surg History Medical History Near syncope (Acute) Abdominal pain (Acute) Dizziness (Acute) Nausea, vomiting, and diarrhea (Acute) Vertigo (Acute) CAD (coronary artery disease) Surgical History Hx of aortic valve replacement Hx of CABG History of back surgery (Chronic) History of neck surgery Family History Other Coronary heart disease Social History Preferred Language: Albanian Communication Ability: Effective Beliefs That Will Affect Care: None Current Living Situation: Spouse Feels Safe at Home: Yes Smoking Status: Current every day smoker Cigarettes Per Day: 10 Second Hand E xposure: No Hx Alcohol Use: Yes Alcohol type: beer Hx Substance Use: No Review of Systems See HPI for pertinent positives & negatives. and A total of 10 systems reviewed and were otherwise negative Physical Exam Vital Signs Vital Signs - 24 hr 04/22/19 04:11 04/22/19 04:45 04/22/19 04:59 Temperature 36.7 C Temperature Source Oral Sepsis Recent Fever Within 48 Hours No Sepsis Action Taken by Nursing No Action Required Pulse Rate 59 L Pulse Rate [Apical] 59 L Respiratory Rate 20 18 Respiratory Effort / Characteristics Non-Labored Spontaneous Respiratory Depth Normal Normal Blood Pressure 152/83 H Blood Pressure [Left Arm] 148/66 H Blood Pressure Mean 106 Blood Pressure Mean [Left Arm] 93 Pulse Oximetry 98 92 93 Oxygen Delivery Method Room Air Room Air Room Air HEENT: Head - normocephalic and atraumatic Pupils are equal, round, and reactive to light. Extraocular eye muscles are intact, and sclera are anicteric. Nose - moist nasal mucosa without discharge. Mouth - moist buccal mucosa. Oropharynx is nonerythematous and there is no tonsillar exudate or edema noted. Neck: Supple; no JVD, nuchal rigidity, cervical lymphadenopathy. Heart: Regular rate and rhythm. There is a normal S1 and S2 with no murmurs, clicks, or gallops appreciated. Lungs: Clear to auscultation bilaterally with no wheezes, rales, or rhonchi. Abdomen: Soft, completely nontender, nondistended, with good bowel sounds. There are no palpable pulsatile masses or hepatosplenomegaly. There is no guarding, rigidity, or rebound noted. Extremities: No evidence of cyanosis, clubbing, or edema. There are easily p alpable peripheral pulses. Skin: warm and dry with good turgor and no rashes. Course 0426: Past medical records reviewed. The patient was evaluated in room A02, and a complete history and physical examination were performed. A twelve-lead EKG was obtained. 0431: I order Nitroglycerin 0.4mg SL 0504: I reevaluated the patient and his pain is 99% relieved after 1 Nitro. The patient had a chest x-ray 0522: I spoke to Dr. Toussaint [facility] Hospitalist about the patient's case and he is going to accept him for further evaluation. 0545: I checked on the patient and he is still pain free. I also updated him on results and the treatment plan. He fully understands and is agreeable with the plan. Consultations Consultation #1: I spoke to Dr. Toussaint [facility] Hospitalist about the patient's case and he is going to accept him for further evaluation. Time: 05:22 Administered Medications Heparin Sodium/Dextrose () 1 ea IV Q15M [facility]; Protocol Stop: 05/22/19 06:01 Last Admin: 04/22/19 06:20 Dose: 1 ea Documented by: [id number] Nitroglycerin (Nitrostat) 0.4 mg SL UD PRN PRN Reason: Chest Pain Stop: 05/22/19 04:30 Last Admin: 04/22/19 04:47 Dose: 0.4 mg Documented by: [id number] Discontinued Medications Aspirin (Aspirin Chew) 324 mg PO NOW STA Stop: 04/22/19 06:02 Last Admin: 04/22/19 06:19 Dose: 324 mg Documented by: [id number] Heparin Sodium/Dextrose (Heparin Sodium/Dextrose) Confirm Administered Dose 25,000 units IV .STK-MED ONE Stop: 04/22/19 06:12 Last Admin: 04/22/19 06:20 Dose: 1,450 units Documented by: [id number] Cosigned by: [id number] Medical Decision Making Differential Diagnosis The patient is a 78 year old male who presents to the Emergency Room with complaints of worsening chest tightness that started yesterday afternoon. Differential diagnosis includes Unstable angina, GERD, STEMI, NSTEMI, and aortic dissection, amongst others. Medical Records Attestation: I reviewed the patient's medical records. Home Medications Current Medication List: was personally reviewed by me Laboratory Data Attestation: I reviewed the patient's lab results. Result diagrams: 04/22/19 04:37 04/22/19 04:37 Lab Results 04/22/19 04/22/19 04/22/19 Range/Units 04:37 04:37 04:37 WBC 7.47 (4.8-10.8) K/uL RBC 4.37 L (4.7-6.1) M/uL Hgb 14.2 (14.0-18.0) g/dL Hct 41.6 L (42-52) % MCV 95.2 (80-100) fL MCH 32.5 (25-34) pg MCHC 34.1 (32-36) g/dL RDW Std Deviation 54.0 H (36.4-46.3) fL RDW Coeff of Enriqueta 15.4 H (11.5-14.5) % Plt Count 206 (130-400) K/uL MPV 9.2 (7.4-10.4) fL Immature Gran % (Auto) 1.1 % Neut % (Auto) 58.5 % Lymph % (Auto) 22.5 % [place] % (Auto) 9.9 % Eos % (Auto) 6.8 % Baso % (Auto) 1.2 % Immature Gran # (Auto) 0.08 H (0.00-0.02) K/uL Neut # (Auto) 4.37 (1.4-6.5) K/uL Lymph # (Auto) 1.68 (1.2-3.4) K/uL [place] # (Auto) 0.74 H (0.11-0.59) K/uL Eos # (Auto) 0.51 H (0-0.5) K/uL Baso # (Auto) 0.09 (0-0.2) K/uL PT 10.7 (9.0-12.0) Seconds INR 1.0 (0.9-1.1) APTT 24.2 (21.0-31.0) Seconds PTT Ratio 0.9 Sodium 142 (136-145) mmol/L Potassium 3.8 (3.5-5.1) mmol/L Chloride 108 H (98-107) mmol/L Carbon Dioxide 26 (21-32) mmol/L Anion Gap 8.0 (3-11) BUN 15 (7-18) mg/dl Creatinine 0.97 (0.6-1.4) mg/dl Est Cr Clr Drug Dosing 73.4 ml/min Est GFR ( Amer) 87.5 Est GFR (Non-Af Amer) 75.5 BUN/Creatinine Ratio 15.6 (10-20) Glucose 166 H (70-99) mg/dl Calcium 9.1 (8.5-10.1) mg/dl Total Bilirubin 0.4 (0.2-1) mg/dl AST 19 (15-37) U/L ALT 32 (12-78) U/L Alkaline Phosphatase 92 (45-117) U/L Troponin I < 0.015 (0-0.045) ng/ml Total Protein 6.9 (6.4-8.2) gm/dl Albumin 3.7 (3.4-5.0) gm/dl Globulin 3.2 (2.5-4.0) gm/dl Albumin/Globulin Ratio 1.2 (0.9-2) Lipase 364 (73-393) U/L Imaging Data Attestation: I personally reviewed and interpreted this imaging study as follows: My Impression: CHEST XRAY 1 View Cardiomegaly noted. No obvious pulmonary infiltrate. Unchanged from Xray from February 2019. ECG Data Attestation: I personally reviewed and interpreted this ECG as follows: Indication: chest pain Rate (beats per minute): 58 Rhythm: sinus bradycardia Findings: + T-wave inversion (Lateral) Comparison ECG Date: from (02/17/19) Change: no significant change Blood Pressure Blood Pressure Findings: Elevated blood pressure Blood Pressure Disposition: further management by hospitalist KATIA Morel The patient is a 78 year old male who presents to the Emergency Room with complaints of worsening chest tightness that started yesterday afternoon. The patient has a history of coronary artery disease with one previous stent placement. The patient describes a squeezing sensation in his chest similar to that of when he had his initial event. The patient's chest discomfort was relieved with one sublingual nitroglycerin. EKG was similar to previous EKGs with T wave inversion in the lateral leads. He has negative troponin. I remain concerned about the patient's symptoms based on his history and the fact that his pain was relieved by nitroglycerin. I discussed the case with the [facility] Hospitalist and they will evaluate for further management. Impression & Plan Substernal chest pain relieved by nitroglycerin Discharge Plan Visit Data Chief Complaint: Chest Pain Stated Complaint: CHEST PAIN,LEFT ARM PAIN ED Provider: Radha Winston Discharge Problem: Substernal chest pain relieved by nitroglycerin Patient Disposition: Being Evaluated by Hospitalist Forms Stand Alone Forms: Call Back Authorization, My [facility] Prescriptions Prescriptions: No Action atorvastatin 40 mg Tablet 80 mg PO QAM Qty: 60 RF: 0 clopidogrel 75 mg Tablet 75 mg PO QAM Qty: 30 RF: 0 aspirin [Ecotrin Low Strength] 81 mg Tablet,Delayed Release (Dr/Ec) 81 mg PO QAM Qty: 1 RF: 0 metoprolol succinate 25 mg Tablet Extended Release 24 Hr 25 mg PO QAM Qty: 30 RF: 0 Referrals Referrals: Reji Paige MD [Primary Care Provider] - The scribe's documentation has been prepared under my direction and personally reviewed by me in its entirety. I confirm that the note above accurately reflects all work, treatment, procedures, and medical decision making performed by me.
[2019-04-22] MEDS ORDERED: ONDANSETRON INJ 2 MG/ML 2 ML VIAL IV PRN (07:07)
[2019-04-22] MEDS ORDERED: MAGNESIUM HYDROXIDE SUSP 30 ML UDC PO PRN (07:07)
[2019-04-22] MEDS ORDERED: ACETAMINOPHEN 325 MG TAB PO PRN (07:07)
[2019-04-22] MEDS: Heparin Adult STANDARD Wt-Based Dextrose 5% 25,000 units/500 mL IV SCH ×2 (07:33→22:06)
--- NOTE | 2019-04-22 08:08 | Hospitalist Progress Note ---
Date of Service April 22, 2019 Assessment & Plan (1) Substernal chest pain relieved by nitroglycerin: Substernal chest pain relieved by sublingual nitroglycerin/unstable angina/CAD/hypertension/history of CABG/history of IN/status post recent coronary artery stent 02/15/2019- Pain after admission is mostly in the central abdomen Give aspirin 324 mg p.o. now. Continue clopidogrel 75 mg p.o. every morning. Continue metoprolol succinate 25 mg p.o. every morning. Start heparin drip standard dose no bolus per protocol. Consult Dr. Esequiel Rios his photo mask pattern generator. (2) Coronary artery disease: Patient is known risk factors with coronary artery disease risk stratification testing will be performed in 04/23 (3) Non-ST elevation (NSTEMI) myocardial infarction: History of NSTEMI currently troponins are negative continue antiplatelet agents and anticoagulation (4) Hypertension: Remain controlled with out medications (5) Hx of aortic valve replacement: Noted (6) Hx of CABG: See above (7) Hyperlipidemia LDL goal <70: See above continue atorvastatin 80 mg every morning Subjective this pt continues with atypical chest pain, cardiology has seen and feels we will risk stratify him with stress or LHC on 04/23, currently has improvement in his pain after morphine Review of Systems Review of Systems: ROS: well nourished well developed. No double vision blurry vision No problems with speech or swallowing No palpitations or pressure discomfort is more epigastric abdominal No Wheezing or breathing issues Centralized dull abdominal pain without nausea or vomiting No burning urine urine frequency or changes in color No focal joint pain or muscle pain No skin rashes or oral lesions No unusual bruising or bleeding No focused back pain or numbness or loss of strength No changes in memory or confusion Physical Exam Physical Exam: The patient appeared well nourished and normally developed. Vital signs as documented. Head exam is unremarkable. normocephalic, atraumatic Neck is without jugular venous distension, thyromegaly, or lymphademopathy Lungs are clear to auscultation and percussion. Cardiac exam reveals Rhythm is regular. Slight systolic ejection murmurs heard. Abdominal exam reveals normal bowel sounds, his abdomen is soft however tenderness is reproducible in the midepigastrium Extremities are nonedematous and both pedal pulses are present Neurologic exam is A&Ox3, no focal deficits, strength is equal bilateral Psychologically seems anxious Skin is warm Dry without bruises or lesions Results & Data Vital Signs (Past 12 Hours) Vital Signs Temp Pulse Pulse Resp BP BP Pulse Ox 04/22/19 07:33 62 04/22/19 07:30 36.7 C 50 L 18 174/63 H 95 04/22/19 06:39 51 L 18 152/77 H 95 04/22/19 04:59 59 L 18 148/66 H 93 04/22/19 04:45 92 04/22/19 04:11 36.7 C 59 L 20 152/83 H 98 PG Care Time/CCT Total # of Minutes Spent Total Time Spent with Patient: Total time spent is greater than 50% in coordination of care (as documented) at patient's floor/unit and/or counseling patient: (1) Hypertension Hypertension type: essential hypertension Qualified Code(s): I10 - Essential (primary) hypertension
[2019-04-22] MEDS: NSS + 20MEQ KCL 20 MEQ/1,000 ML BAG IV SCH ×2 (08:42→18:23)
[2019-04-22] MEDS: ALUMINUM/MAGNESIUM SUSP 30 ML UDC PO PRN ×2 (10:09→22:01)
--- NOTE | 2019-04-22 11:07 | Cardiology Consultation ---
Date of Consultation April 22, 2019 Assessment & Plan (1) Substernal chest pain relieved by nitroglycerin: His chest discomfort is a little bit worrisome in view of his known severe coronary artery disease. Objectively however his enzymes are negative (with one pending) and his electro cardiogram does not show significant change compared to prior. He has been very fatigued over the last 2 to 3 days which can also be a sign of progressive disease. It is unclear whether this represents myocardial ischemia or whether it is something else altogether. The discomfort has moved more into his epigastric area and perhaps this is GI. For the moment I would continue the current plan, I am going to get an echocardiogram to see if there is any change there. If not we may want to consider either stress testing or catheterization but I will leave that decision until tomorrow morning when we have all the data. (2) Coronary artery disease: He has known coronary disease, he has had bypass surgery and he has had recent stent placement. It may be difficult to tell whether his symptoms are due to progressive coronary disease or not. Noninvasive testing such as stress testing may or may not be useful. So far he is not having evidence of an acute ischemic event. (3) Hx of aortic valve replacement: He has a bioprosthetic aortic valve which on exam is functioning normally, by echocardiography several months ago it was also functioning normally. We can evaluated again by echocardiography here but is not likely to be abnormal. History of Present Illness Reason for Consultation: Chest pain Attending Physician: Brendon Carrillo MD History of Present Illness This is a very pleasant 78-year-old gentleman who has a history of known heart disease including a bioprosthetic aortic valve replacement and bypass surgery, he presented with a non-ST segment elevation myocardial infarction in early February 2019. He had a catheterization performed February 16, 2019 where he had a 20 to 30% distal left main, 50 to 60% mid LAD stenosis and a 30% ostial first diagonal, 30 to 40% ostial circumflex stenosis and a 95% obtuse marginal stenosis. He had noncritical disease in the right coronary artery. His internal mammary artery to the LAD was patent and he had an anastomosis to his LAD. He had a successful intervention on his obtuse marginal with a drug-eluting stent. He was doing well and tell the last 3 or 4 days when he began to have symptoms of extreme fatigue, a soreness in his substernal area which has now moved more into his abdominal area. The discomfort is not severe but is bothersome, it is not clear to me whether it is exertional or not but it was associated with some diaphoresis. He has had no shortness of breath, no palpitations. In the emergency room he was treated with intravenous heparin and nitroglycerin with some relief. His cardiac enzymes have been negative. His electrocardiogram shows lateral T wave inversion which is not much different than his admission several months ago. Allergies Allergy/AdvReac Type Severity Reaction Status Date / Time codeine Allergy Unknown "EYES GO Verified 04/22/19 05:38 SHUT AND HEAD SWELLS" Home Medications Home Medications Medication Instructions Recorded Confirmed Type aspirin [Ecotrin Low Strength] 81 mg PO QAM #1 tab 02/17/19 04/22/19 Rx atorvastatin 80 mg PO QAM #60 tab 02/17/19 04/22/19 Rx clopidogrel 75 mg PO QAM #30 tab 02/17/19 04/22/19 Rx metoprolol succinate 25 mg PO QAM #30 tab 02/17/19 04/22/19 Rx Patient History Medical History Near syncope (Acute) Abdominal pain (Acute) Dizziness (Acute) Nausea, vomiting, and diarrhea (Acute) Vertigo (Acute) CAD (coronary artery disease) Surgical History Hx of aortic valve replacement Hx of CABG History of back surgery (Chronic) History of neck surgery Family History Other Coronary heart disease Social History Preferred Language: Belgian Communication Ability: Effective Beliefs That Will Affect Care: None marital status: Current Living Situation: Spouse Feels Safe at Home: Yes Smoking Status: Current every day smoker Tobacco Type: cigarettes Cigarettes Per Day: 6 Second Hand Exposure: No Hx Alcohol Use: Yes Alcohol type: beer Hx Substance Use: No Review of Systems Review of Systems: All systems reviewed & are unremarkable except as noted in HPI & below Physical Exam Physical Exam: Constitutional: Alert, cooperative and in no distress. HEENT: Unremarkable Neck: No jugular venous distention, carotid pulses are normal and equal bilaterally without bruits. Pulmonary: Clear to auscultation bilaterally. Cardiac: Regular rhythm with a grade 2/6 holosystolic murmur at the apex, no gallop or rub. Abdomen: Soft, nontender with normal bowel sounds. Extremities: No edema. Distal pulses intact. Neurologic: No focal findings. Gait is steady. Skin: No rash, ecchymoses or petechiae. Results & Data Vital Signs (Past 12 Hours) Vital Signs Temp Pulse Pulse Resp BP BP Pulse Ox 04/22/19 07:33 62 04/22/19 07:30 36.7 C 50 L 18 174/63 H 95 04/22/19 06:39 51 L 18 152/77 H 95 04/22/19 04:59 59 L 18 148/66 H 93 04/22/19 04:45 92 04/22/19 04:11 36.7 C 59 L 20 152/83 H 98 Diagnostic Findings His electrocardiogram on arrival this morning at 4:20 AM shows sinus bradycardia at 58 bpm with T wave inversion in 1, aVL in the lateral precordial leads. Similar to February 17, 2019. Telemetry: Sinus rhythm and sinus bradycardia, no significant abnormalities
[2019-04-22] MEDS: MoRPHine SULFATE 2 MG/ML CARP IV PRN ×2 (11:10→22:01)
--- NOTE | 2019-04-22 11:32 | XRay Report ---
SINGLE VIEW CHEST CLINICAL HISTORY: Atypical chest pain. FINDINGS: An AP, portable, upright chest radiograph is compared to study dated 02/15/2019. The examinat ion is degraded by portable technique and apical lordotic positioning. The patient is status post mi dline sternotomy. The heart is enlarged and there is atherosclerotic calcification of the thoracic ao rta. The pulmonary vasculature is noncongested. Small calcified granulomas are incidentally noted. No airspace consolidation or large pleural effusion is identified. No pneumothorax is seen. The skeleta l structures are osteopenic. The bony thorax is grossly intact. Fusion hardware is noted in the lower cervical spine. Degenerative change is noted in the thoracic spine. IMPRESSION: Cardiomegaly with no acute cardiopulmonary abnormality. Electronically signed by: Tj Espinal M.D. 04/22/2019 11:31 AM
[2019-04-22 12:44] LABS: Partial Thromboplastin Ratio 1.5; Partial Thromboplastin Time 39.6 Seconds (21.0-31.0)
[2019-04-22] MEDS ORDERED: HEPARIN IV BOLUS 6,000 UNITS in SYRINGE 0 ML IV ONE (12:46)
[2019-04-22 19:27] LABS: Partial Thromboplastin Ratio 2.9
[2019-04-22 19:32] LABS: Partial Thromboplastin Time 77.5 Seconds (21.0-31.0)
[2019-04-22] MEDS ORDERED: QUETIAPINE FUMARATE 25 MG TABLET PO ONE (21:00)
[2019-04-23] MEDS: MoRPHine SULFATE 2 MG/ML CARP IV PRN ×2 (01:34→05:43)
[2019-04-23 01:44] LABS: Basophils # (auto) 0.05 K/uL (0-0.2); Basophils % (auto) 0.6 %; Eosinophils # (auto) 0.51 K/uL (0-0.5); Eosinophils % (auto) 6.3 %; Hematocrit (blood only) 38.5 % (42-52); Immature Granulocytes # (auto) 0.06 K/uL (0.00-0.02); Immature Granulocytes % (auto) 0.7 %; Lymphocytes # (auto) 1.77 K/uL (1.2-3.4); Mean Corpuscular Hgb Conc 33.8 g/dL (32-36); Mean Corpuscular Volume 94.6 fL (80-100); Mean Platelet Volume 8.7 fL (7.4-10.4); Monocytes # (auto) 0.66 K/uL (0.11-0.59); Monocytes % (auto) 8.2 %; Neutrophils % (auto) 62.2 %; Platelet Count 183 K/uL (130-400); RDW Coefficient of Variation 15.3 % (11.5-14.5); Red Blood Count 4.07 M/uL (4.7-6.1); White Blood Count 8.05 K/uL (4.8-10.8)
[2019-04-23 02:04] LABS: Albumin Level 3.4 gm/dl (3.4-5.0); BUN Creatinine Ratio 15.3 (10-20); Calcium 8.2 mg/dl (8.5-10.1); Creatinine Clr Calc Pharmacy 75.5 ml/min; Est GFR (African American) 90.9; Est GFR (Non-African American) 78.4; Potassium 3.9 mmol/L (3.5-5.1)
[2019-04-23 02:05] LABS: INR 1.1 (0.9-1.1); Partial Thromboplastin Ratio 2.2; Prothrombin Time 11.2 Seconds (9.0-12.0)
[2019-04-23 02:06] LABS: Albumin Globulin Ratio 1.1 (0.9-2); Bilirubin,Total 0.5 mg/dl (0.2-1); Globulin 3.1 gm/dl (2.5-4.0); Total Protein 6.5 gm/dl (6.4-8.2)
[2019-04-23 02:07] LABS: Partial Thromboplastin Time 60.9 Seconds (21.0-31.0)
[2019-04-23] MEDS ORDERED: ALUMINUM/MAGNESIUM SUSP 18 ML, LIDOCAINE HCL VISCOUS 2% 6 ML, BARCODE IDENTIFIER 1 EA PO ONE (02:22)
[2019-04-23] MEDS: NSS + 20MEQ KCL 20 MEQ/1,000 ML BAG IV SCH ×2 (05:45→15:06)
--- NOTE | 2019-04-23 06:52 | XRay Report ---
XR KUB/Abdomen 1 view CLINICAL HISTORY: 78 years-old Male presenting with abd pain. TECHNIQUE: Single supine view of the abdomen was obtained. COMPARISON: 03/13/2015. FINDINGS: Moderate stool burden in the right colon with a mild stool burden in the remainder of the colon. Nono bstructive bowel gas pattern. No gross pneumoperitoneum align for supine technique. Allowing for bowel gas and stool, no calcifications to suggest nephrolithiasis. No radiographic evide nce of ureteral calculi. Atherosclerotic calcifications in the pelvis. Posterior lumbar fusion at L4-5 with interbody spacer and laminectomy defects. IMPRESSION: 1. No acute intra-abdominal pathology. Electronically signed by: Dany Palafox M.D. 04/23/2019 6:51 AM
[2019-04-23] MEDS ORDERED: ASPIRIN 81 MG ECTAB PO ONE (12:00)
[2019-04-23] MEDS ORDERED: ATORVASTATIN 40 MG TAB PO SCH (12:00)
[2019-04-23] MEDS ORDERED: METOPROLOL SUCC 25MG EXT REL TAB PO SCH (12:00)
[2019-04-23] MEDS ORDERED: CLOPIDOGREL BISULFATE 75 MG TAB PO ONE (12:00)
--- NOTE | 2019-04-23 22:58 | Cardiology Progress Note ---
Date of Service April 23, 2019 Assessment & Plan (1) Chest pain: 2. History of coronary artery disease post PCI to OM 2 and prior TORRES to LAD 3. History of bioprosthetic AVR 4. Epigastric pain 5. Hypertension Reviewed patient's recent cardiac catheterization. Reviewed repeat echocardio gram and stress test from today. Suspicion the presenting pain represents ACS is low. More likely GI etiology. No change to prior cardiac regimen. Continue DAPT with aspirin, clopidogrel. Cardiac follow-up as scheduled. Okay for discharge today. Subjective Feeling well. Prior epigastric pain has resolved. No chest pain. No other new complaints. Review of Systems Review of Systems: All systems reviewed & are unremarkable except as noted in HPI & below Physical Exam Physical Exam: General: Comfortable, no acute distress HEENT: Sclerae anicteric, mucous membranes moist Lungs: Clear to auscultation bilaterally, no rhonchi or wheezes Cardiac: Regular rate and rhythm, crisp bioprosthetic closure. Abdomen: Soft, nontender, nondistended, positive bowel sounds. Extremities: Warm, well perfused, no edema. 2+ radial pulses Skin: No rashes or lesions. Neuro: Nonfocal Psych: Alert orient x3, normal affect and mood Results & Data Vital Signs (Past 12 Hours) Vital Signs Temp Pulse Pulse Resp BP BP Pulse Ox 04/23/19 15:27 36.6 C 55 L 60 16 196/80 H 183/85 H 95 04/23/19 14:56 36.6 C 55 L 60 16 95 04/23/19 11:06 183/85 H 04/23/19 10:59 36.6 C 60 16 196/80 H 95 (1) Chest pain Chest pain type: unspecified Qualified Code(s): R07.9 - Chest pain, unspecified
--- NOTE | 2019-04-30 05:48 | Discharge Summary ---
Date of Service date of admission - April 22, 2019 date of discharge - April 23, 2019 Admission HPI Per Admitting Provider The patient is a 78-year-old male with past medical history including CAD status post CT on 02/15/2019 and placement of coronary artery stent at that time. He was found to have a 95% obtuse marginal stenosis and MIKE was placed to this lesion without complication. He also has a past history of bioprosthetic aortic valve and prior CABG. He was doing well until 3 or 4 days prior to admission when he began to have symptoms of extreme fatigue, a soreness in his substernal area, and then ultimately developed a discomfort in the high epigastric area of his abdomen. The discomfort was not severe but simply bothersome. He had associated diaphoresis. Denied dyspnea or palpitations. He took nitroglycerin for his chest symptoms prior to coming to the ER which f ully resolved the chest discomfort. By the time of ED arrival his symptoms were still resolved. EKG shows persistent T wave inversions in leads I and aVL and V6 as before, but also demonstrates T wave inversion in lead V5. Patient was placed on heparin drip protocol in the ER. Principal Diagnosis chest discomfort, resolved, negative stress test; concern for gastritis Discharge Exam Constitutional well developed, well nourished and + obese; no acute distress agitated, anxious ENMT external ear and nose normal, oropharynx normal Respiratory normal respiratory effort, lungs clear to auscultation Cardiovascular Rate/Rhythm: regular rate and regular rhythm Heart Sounds: normal S1 and normal S2; no murmur Vessels: posterior tibial pulses present and dorsalis pedis pulses present; no JVD Extremities: no edema Gastrointestinal (Abdomen) Inspection/Auscultation: normal bowel sounds; abdomen not distended Percussion/Palpation: + abdomen tender (minimal - high epigastric region ) and abdomen soft; no hepatosplenomegaly Skin no rashes, warm and dry Psychiatric Orientation: alert and oriented x 3 Affect: + irritable affect Discharge Data Allergies Allergy/AdvReac Type Severity Reaction Status Date / Time codeine Allergy Unknown "EYES GO Verified 04/29/19 09:32 SHUT AND HEAD SWELLS" Consultations Cardiology - Waldemar Ren MD Procedures Performed 1. echocardiogram - EF 55-60%; bioprosthetic aortic valve with normal gradients; no wall motion abnormalities. 2. exercise stress echocardiogram - development of rate-related abberancy with ST depressions in the inferior leads during peak exercise. These changes resolved in recovery. NO inducible LV wall motion abnormalities, however. Hospital Course (1) Substernal chest pain relieved by nitroglycerin: Despite his symptoms resolving with nitroglycerin pre-hospital his troponins were negative, he did not have recurrent chest symptoms while here, and stress test was ultimately NEGATIVE FOR ISCHEMIA. He was seen by cardiology and it was felt his chest symptoms were non-cardiac in origin. There was suspicion that his symptoms were GI in origin (see below). (2) Gastritis: The patient had reproducible tenderness in the high epigastric region of his abdomen. It turns out that the patient drinks alcohol. This, coupled with plavix and aspirin use, increases his chances of gastritis. Thus, PPI was prescribed at discharge and he was asked to follow-up with GI as an outpatient for consideration of EGD. This recommendation was communicated to his PCP by phone. (3) Coronary artery disease: Negative cardiac work-up while here. He will continue asa, plavix, statin, and beta mildred along with nitro SL prn. (4) Non-ST elevation (NSTEMI) myocardial infarction: History of NSTEMI February 2019. Troponins were NEGATIVE during this stay. (5) Hypertension: BPs were quite high and labile while here. He remains on metoprolol. If BPs continue to be high at home and/or at his PCP's office will need titration of metoprolol or additional agents. The patient was VERY AGITATED during much of his stay which could have been contributing to his elevated BPs. (6) Hx of aortic valve replacement: Echo with normal valve function. (7) Hx of CABG: (8) Hyperlipidemia LDL goal <70: Continue statin agent (lipitor 80mg daily). LDL was 78 during February 2019 hospitalization. (9) Tobacco abuse: (10) Alcohol use: Amount consumed uncertain. Total Time Total Time Spent Total Time Spent (In Minutes): 35 Total Time Includes: Examination of the Patient, Discharge Planning, Medication Reconciliation and Communication With Other Providers (cardiology) Discharge Plan Discharge Items Patient Disposition: Home - Self-Care Reason For Visit: Chest Tightness Discharge Diagnosis: Chest Tightness - resolved. No evidence of heart attack. Negative stress test. Abdominal pain - resolved. Etiology uncertain but possibly gastritis. Discharge Goals: Diagnostic testing and Therapeutic intervention Activity: Resume your previous activity Non-emergency contact: Primary Care Provider Call non-emergency contact if: you have any medication questions, your symptoms worsen, your pain is not controlled and your temperature is above 100.5 Follow-up/Referrals: Reji Paige MD [Primary Care Provider] - 05/03/19 2:15 pm (please see Dr Paige or one of his partners within 1 week) Diet: Heart Healthy Add Provider Instructions: You were admitted for chest tightness. This resolved with nitroglycerin. Sometime after admission you also developed discomfort/pain in the upper part of the abdomen. Your blood work for the heart was normal ruling out any heart attack. Your echocardiogram was normal showing good heart function. Your stress test was normal/negative. Your liver tests and pancreas test were normal. All of the test results taken in sum would suggest your symptoms were not heart- related. With the presence of the upper abdominal pain you may have been suffering from g astritis. Gastritis is when the stomach lining is irritated and inflamed. The use of aspirin and plavix increase the risk of gastritis. Recommendations - 1. please take pantoprazole 40mg once daily every morning for 1 month. This is an acid vet assistant. 2. ask your family doctor for a gastroenterology (GI) referral; they may want to perform an upper endoscopy where a camera is placed into the esophagus and stomach to check for gastritis, ulcers, etc. 3. please restrict spicy foods, fried foods, caffeinated beverages (coffee, soda, etc), alcohol, chocolate, and other irritating foods to the stomach. 4. if you have recurrent episodes of upper abdominal pain you may need other tests (CT scan, ultrasound of gallbladder, etc) to rule out other conditions. Follow-up -- see Dr Paige in 1 week. Return to [facility] if -- * you have fevers over 100.5 degrees * you have severe, recurrent abdominal pain * you have nausea and/or vomiting * you have to take nitroglycerin again for chest pain/tightness * any other concerns Prescriptions: New nitroglycerin [Nitrostat] 0.4 mg Tablet, Sublingual 0.4 mg sublingual UD PRN (Reason: chest pain) Qty: 1 RF: 0 pantoprazole [Protonix] 40 mg tablet,delayed release (DR/EC) 40 mg PO QAM Qty: 30 RF: 0 Continued atorvastatin 40 mg Tablet 80 mg PO QAM Qty: 60 RF: 0 clopidogrel 75 mg Tablet 75 mg PO QAM Qty: 30 RF: 0 aspirin [Ecotrin Low Strength] 81 mg Tablet,Delayed Release (Dr/Ec) 81 mg PO QAM Qty: 1 RF: 0 metoprolol succinate 25 mg Tablet Extended Release 24 Hr 25 mg PO QAM Qty: 30 RF: 0 Stand-Alone Forms: Call Back Authorization, [facility] Discharge Orders: Discharge Order (Routine); Ordered 04/23/19 Ordered By: Asher Bright Admission Data Admit Date/Time: 04/22/19 05:56 Attending Provider: Asher Bright Admit Provider: Paul Toussaint Primary Care Provider: Reji Paige Other Providers: Waldemar Ren Service: Telemetry Other Interventions: Discharge Summary Assessment (RN) Last Done: 04/23/19 15:27 Pending Studies at Discharge: No DC Date/Time DO NOT enter until pt leaves facility: 04/23/19 15:40
== END 2019-04-23 15:40 | disposition home or self-care (01) | DRG 392 ==
LOC: ED 04:09 → 2S 05:56 → SUATTDRO 05:56 → 2S 06:39

== ENCOUNTER 2019-04-29 08:57 | Inpatient (IN) ==
[2019-04-29] MEDS ORDERED: FAMOTIDINE 20MG IV PUSH 20 MG/5 ML SYR IV STA (09:28)
[2019-04-29] MEDS ORDERED: ONDANSETRON INJ 2 MG/ML 2 ML VIAL IV STA (09:28)
[2019-04-29] MEDS ORDERED: SODIUM CHLORIDE 0.9% 1000ML 1,000 ML IV SCH (09:30)
--- NOTE | 2019-04-29 09:41 | XRay Report ---
XR chest 1V portable CLINICAL HISTORY: pain dyspnea COMPARISON STUDY: 04/22/2019 FINDINGS: Mild cardiomegaly. Prior median sternotomy. Mild prominence of pulmonary vasculature. IMPRESSION: Pulmonary vascular congestion. Mild cardiomegaly. The above report was generated using voice recognition software. It may contain grammatical, syntax or spelling errors. Electronically signed by: Viet Marin M.D. 04/29/2019 9:39 AM
--- NOTE | 2019-04-29 09:49 | Emergency Department Note ---
Entered by Renetta Schmitt acting as a scribe for Edgard Blankenship DO History of Present Illness General Chief complaint: Abdominal Pain Stated complaint: SEVERE STOMACH PAIN, NUMBNESS IN HANDS AND FEEL Time Seen by Provider: 04/29/19 09:10 Source: patient Mode of arrival: ambulatory Limitations: no limitations History of Present Illness Onset (ago): day(s) 4 Location: abdomen Radiation: non-radiation Severity: severe Pain Consistency: + constant Maximum Pain Intensity: 9 Quality: + sharp Relieved By: + none Exacerbated By: + immobilization (lying flat) Associated symptoms: + nausea/vomiting (The patient complains nausea. The patient denies vomiting. ) and + other (The patient complains of abdominal pain. ) The patient is a 78 year old male with a history of hyperlipidemia, CAD, hypertension, NSTEMI, CABG, aortic valve replacement, and back surgery who presents to the ED with complaints of constant abdominal pain that onset 4 days ago. The patient notes that his pain is severe and sharp. He reports that it is non-radiating. He states that lying down exacerbates the pain. The patient notes nothing has alleviated the pain. The patient complains of nausea. The patient denies vomiting. He denies taking any medications to treat his symptoms. The patient reports that he had a heart attack one month ago and takes Metoprolol and Plavix. He states that he stopped taking his medications for a few days because he was experiencing constipation. The patient reports that he is a smoker and drinks a couple beers each day. Home Medications Home Medications Medication Instructions Recorded Confirmed Type aspirin [Ecotrin Low Strength] 81 mg PO QAM #1 tab 02/17/19 04/29/19 Rx atorvastatin 80 mg PO QAM #60 tab 02/17/19 04/29/19 Rx clopidogrel 75 mg PO QAM #30 tab 02/17/19 04/29/19 Rx metoprolol succinate 25 mg PO QAM #30 tab 02/17/19 04/29/19 Rx nitroglycerin [Nitrostat] 0.4 mg SUBLINGUAL UD PRN #1 btl 04/23/19 04/29/19 Rx pantoprazole [Protonix] 40 mg PO QAM #30 tab 04/23/19 04/29/19 Rx Allergies Allergy/AdvReac Type Severity Reaction Status Date / Time codeine Allergy Unknown "EYES GO Verified 04/29/19 09:32 SHUT AND HEAD SWELLS" Past Med/Surg History Medical History Tobacco abuse Alcohol use GERD (gastroesophageal reflux disease) Abdominal pain (Acute) Diverticulitis (Acute) Hyperlipidemia LDL goal <70 Coronary artery disease Non-ST elevation (NSTEMI) myocardial infarction (Acute) Hypertension Elevated troponin (Acute) Near syncope (Acute) Abdominal pain (Acute) Dizziness (Acute) Nausea, vomiting, and diarrhea (Acute) Vertigo (Acute) CAD (coronary artery disease) Surgical History Hx of aortic valve replacement Hx of CABG History of back surgery (Chronic) History of neck surgery Family History Other Coronary heart disease Social History Preferred Language: Dominican Communication Ability: Effective Creative Developer Required: No Beliefs That Will Affect Care: None marital status: Current Living Situation: Spouse Other Information That Helps Us Care for You: No Feels Safe at Home: Yes Safety Concerns: Feels Safe At This Time Smoking Status: Current every day smoker Tobacco Type: cigarettes Cigarettes Per Day: 6 Do You Dip or Chew Tobacco: No Second Hand Exposure: No Tobacco Cessation Education Requested by Patient: No Hx Alcohol Use: Yes Alcohol type: beer Alcohol Intake Frequency: Daily Hx Substance Use: No Review of Systems See HPI for pertinent positives & negatives. and A total of 10 systems reviewed and were otherwise negative Physical Exam Vital Signs Vital Signs - 24 hr 04/29/19 09:07 04/29/19 09:55 04/29/19 11:04 Temperature 36.7 C Temperature Source Oral Sepsis Recent Fever Within 48 Hours No Sepsis New/Unexplained Change in Mental Status No Sepsis Action Taken by Nursing No Action Required Pulse Rate 53 L Pulse Rate [Left Finger] 56 L 63 Respiratory Rate 18 16 12 Respiratory Effort / Characteristics Non-Labored Spontaneous Respiratory Depth Normal Respiratory Pattern Regular Blood Pressure 178/82 H Blood Pressure [Left Arm] 179/106 H 206/89 H Blood Pressure Mean 114 Blood Pressure Mean [Left Arm] 130 128 Blood Pressure Position Sitting Pulse Oximetry 97 96 92 Oxygen Delivery Method Room Air Room Air Room Air GENERAL: Patient is awake alert in no acute distress patient is resting comfortably and showing no signs of anxiety EYES: The conjunctivae are clear. The pupils are round and reactive. EARS, NOSE, MOUTH AND THROAT: The nose is without any evidence of any deformity. Mucous membranes are moist tongue is midline NECK: The neck is nontender and supple. RESPIRATORY: Normal respiratory effort is noted there is no evidence of wheezing rhonchi or rales CARDIOVASCULAR: Regular rate and rhythm noted there no murmurs rubs or gallops normal S1 normal S2 GASTROINTESTINAL: The abdomen is moderately distended and diffusely tender. There is specific tenderness noted in the epigastric region. Mild guarding is noted in the epigastric region. BACK: No midline tenderness or or step-off noted range of motion in flexion ex tension as well as rotation no signs of muscle spasm noted MUSCULOSKELETAL/EXTREMITIES: There is no evidence of gross deformity full range of motion is noted in the hips and shoulders SKIN: There is no obvious evidence of any rash. There are no petechiae, pallor or cyanosis noted. NEUROLOGIC: Patient is awake alert and oriented x3 strength is symmetric patellar reflexes are 2+ bilaterally Course 0915: Past medical records reviewed. The patient was evaluated in room B05. A complete history and physical examination was performed. 1055: I updated the patient and his the results of his scans. 1143: The patient does not feel any better. He will come in to the hospital. Callout to hospitalist services. 1150: I reviewed the patient's case with Andria [facility] - [facility]. She will evaluate the patient for further management. Consultations Consultation #1: 1150: I reviewed the patient's [facility]. She will evaluate the patient for further management. Time: 11:50 Administered Medications Piperacillin Sod/Tazobactam (Sod 3.375 gm/ Dextrose) 115 mls @ 28.75 mls/hr IV Q8H [facility]; Protocol Stop: 05/09/19 16:59 Last Admin: 04/29/19 17:05 Dose: 28.8 mls/hr Documented by: [id number] Ioversol (Optiray 320 100ml) 94 ml IV ONCE PRN PRN Reason: Interaction Checking Stop: 05/03/19 10:11 Last Admin: 04/29/19 10:12 Dose: 94 ml Documented by: [id number] Morphine Sulfate (Morphine Sulfate) 2 mg IV Q2H PRN PRN Reason: Pain Stop: 05/13/19 14:58 Last Admin: 04/29/19 16:53 Dose: 2 mg Documented by: [id number] Ondansetron HCl (Zofran) 4 mg IV Q4H PRN PRN Reason: Nausea And Vomiting Stop: 05/29/19 14:58 Last Admin: 04/29/19 17:49 Dose: 4 mg Documented by: [id number] Discontinued Medications Al Hydrox/Mg Hydrox/Simethicone () Confirm Administered Dose 1 dose PO .STK-MED ONE Stop: 04/29/19 12:47 Last Admin: 04/29/19 12:48 Dose: 1 dose Documented by: [id number] Al Hydrox/Mg Hydrox/Simethicone 72 ml/ Lidocaine HCl 24 ml/ BARCODE IDENTIFIER 1 ea 0 ml PO TID PRN PRN Reason: Dyspepsia Stop: 05/29/19 14:58 Last Admin: 04/29/19 17:43 Dose: 96 ml Documented by: [id number] Sodium Chloride (Nss 1000ml) 1,000 mls @ 999 mls/hr IV .Q1H1M KENYA Stop: 04/29/19 10:30 Last Infusion: 04/29/19 11:02 Dose: 0 mls/hr Documented by: [id number] Admin: 04/29/19 09:50 Dose: 999 mls/hr Documented by: [id number] Famotidine (Pepcid 20mg Iv Push) 20 mg in 5 mls @ 2.5 mls/min IV NOW STA Stop: 04/29/19 09:29 Last Admin: 04/29/19 09:51 Dose: 2.5 mls/min Documented by: [id number] Piperacillin Sod/Tazobactam Sod (Zosyn) 4.5 gm in 120 mls @ 240 mls/hr IV NOW ONE Stop: 04/29/19 11:05 Last Infusion: 04/29/19 11:38 Dose: 0 mls/hr Documented by: [id number] Admin: 04/29/19 11:02 Dose: 240 mls/hr Documented by: [id number] Morphine Sulfate (Morphine Sulfate) 4 mg IV Q15M PRN PRN Reason: Pain Stop: 05/13/19 09:27 Last Admin: 04/29/19 15:25 Dose: 4 mg Documented by: [id number] Admin: 04/29/19 11:40 Dose: 4 mg Documented by: [id number] Admin: 04/29/19 11:02 Dose: 4 mg Documented by: [id number] Admin: 04/29/19 09:51 Dose: 4 mg Documented by: [id number] Ondansetron HCl (Zofran) 4 mg IV NOW STA Stop: 04/29/19 09:29 Last Admin: 04/29/19 09:50 Dose: 4 mg Documented by: [id number] Medical Decision Making Differential Diagnosis Differential diagnoses: Appendicitis, diverticulitis, PUD, biliary pathology, UTI, pancreatitis, obstruction, mesenteric ischemia, aortic pathology, infections, inflammatory bowel disease, renal colic, as well as others were entertained. Medical Records Attestation: I reviewed the patient's medical records. Home Medications Current Medication List: was personally reviewed by me Laboratory Data Attestation: I reviewed the patient's lab results. Result diagrams: 04/29/19 10:30 04/29/19 10:30 Lab Results 04/29/19 04/29/19 04/29/19 Range/Units 09:54 10:30 10:30 WBC 6.34 (4.8-10.8) K/uL RBC 4.18 L (4.7-6.1) M/uL Hgb 13.2 L (14.0-18.0) g/dL POC Hgb 14.6 (14.0-18.0) g/dl Hct 39.4 L (42-52) % POC Hct 43 (42-52) % MCV 94.3 (80-100) fL MCH 31.6 (25-34) pg MCHC 33.5 (32-36) g/dL RDW Std Deviation 52.8 H (36.4-46.3) fL RDW Coeff of Enriqueta 15.4 H (11.5-14.5) % Plt Count 201 (130-400) K/uL MPV 9.3 (7.4-10.4) fL Immature Gran % (Auto) 0.6 % Neut % (Auto) 70.4 % Lymph % (Auto) 17.0 % [place] % (Auto) 7.9 % Eos % (Auto) 3.5 % Baso % (Auto) 0.6 % Immature Gran # (Auto) 0.04 H (0.00-0.02) K/uL Neut # (Auto) 4.46 (1.4-6.5) K/uL Lymph # (Auto) 1.08 L (1.2-3.4) K/uL [place] # (Auto) 0.50 (0.11-0.59) K/uL Eos # (Auto) 0.22 (0-0.5) K/uL Baso # (Auto) 0.04 (0-0.2) K/uL PT 11.4 (9.0-12.0) Seconds INR 1.1 (0.9-1.1) APTT 26.1 (21.0-31.0) Seconds PTT Ratio 1.0 POC Sodium 141 (135-144) mEq/L Sodium (136-145) mmol/L POC Potassium 3.9 (3.3-5.0) mEq/L Potassium (3.5-5.1) mmol/L POC Chloride 102 (101-112) mEq/L Chloride (98-107) mmol/L Carbon Dioxide (21-32) mmol/L POC Total CO2 28 (24-31) mEq/l Anion Gap (3-11) POC Anion Gap 15.0 L (16-25) mmol/L POC BUN 11 (7-18) mg/dl BUN (7-18) mg/dl Creatinine (0.6-1.4) mg/dl POC Creatinine 1.0 (0.6-1.3) mg/dl Est Cr Clr Drug Dosing ml/min Est GFR ( Amer) Est GFR (Non-Af Amer) BUN/Creatinine Ratio (10-20) Glucose (70-99) mg/dl POC Glucose (other) 153 H (70-99) mg/dl Calcium (8.5-10.1) mg/dl POC Ioniz Calcium Lolly 1.20 (1.12-1.32) mmol/l Total Bilirubin (0.2-1) mg/dl Direct Bilirubin (0-0.2) mg/dl AST (15-37) U/L ALT (12-78) U/L Alkaline Phosphatase (45-117) U/L Total Creatine Kinase (39-308) U/L CK-MB (CK-2) (0.5-3.6) ng/ml CK/CKMB % Calc (0-3.0) Troponin I (0-0.045) ng/ml Total Protein (6.4-8.2) gm/dl Albumin (3.4-5.0) gm/dl Globulin (2.5-4.0) gm/dl Albumin/Globulin Ratio (0.9-2) Lipase (73-393) U/L Urine Color Urine Appearance (Clear) Urine pH (4.5-7.5) Ur Specific [place] (1.000-1.030) Urine Protein (Negative) Urine Glucose (UA) (Negative) Urine Ketones (Negative) Urine Blood (Negative) Urine Nitrite (Negative) Urine Bilirubin (Negative) Urine Urobilinogen (Negative) Ur Leukocyte Esterase (Negative) 04/29/19 04/29/19 Range/Units 10:30 11:05 WBC (4.8-10.8) K/uL RBC (4.7-6.1) M/uL Hgb (14.0-18.0) g/dL POC Hgb (14.0-18.0) g/dl Hct (42-52) % POC Hct (42-52) % MCV (80-100) fL MCH (25-34) pg MCHC (32-36) g/dL RDW Std Deviation (36.4-46.3) fL RDW Coeff of Enriqueta (11.5-14.5) % Plt Count (130-400) K/uL MPV (7.4-10.4) fL Immature Gran % (Auto) % Neut % (Auto) % Lymph % (Auto) % [place] % (Auto) % Eos % (Auto) % Baso % (Auto) % Immature Gran # (Auto) (0.00-0.02) K/uL Neut # (Auto) (1.4-6.5) K/uL Lymph # (Auto) (1.2-3.4) K/uL [place] # (Auto) (0.11-0.59) K/uL Eos # (Auto) (0-0.5) K/uL Baso # (Auto) (0-0.2) K/uL PT (9.0-12.0) Seconds INR (0.9-1.1) APTT (21.0-31.0) Seconds PTT Ratio POC Sodium (135-144) mEq/L Sodium 140 (136-145) mmol/L POC Potassium (3.3-5.0) mEq/L Potassium 3.9 (3.5-5.1) mmol/L POC Chloride (101-112) mEq/L Chloride 105 (98-107) mmol/L Carbon Dioxide 29 (21-32) mmol/L POC Total CO2 (24-31) mEq/l Anion Gap 6.0 (3-11) POC Anion Gap (16-25) mmol/L POC BUN (7-18) mg/dl BUN 12 (7-18) mg/dl Creatinine 0.93 (0.6-1.4) mg/dl POC Creatinine (0.6-1.3) mg/dl Est Cr Clr Drug Dosing 77.5 ml/min Est GFR ( Amer) 92.1 Est GFR (Non-Af Amer) 79.5 BUN/Creatinine Ratio 12.5 (10-20) Glucose 142 H (70-99) mg/dl POC Glucose (other) (70-99) mg/dl Calcium 8.0 L (8.5-10.1) mg/dl POC Ioniz Calcium Lolly (1.12-1.32) mmol/l Total Bilirubin 0.6 (0.2-1) mg/dl Direct Bilirubin 0.2 (0-0.2) mg/dl AST 15 (15-37) U/L ALT 33 (12-78) U/L Alkaline Phosphatase 74 (45-117) U/L Total Creatine Kinase 52 (39-308) U/L CK-MB (CK-2) 1.9 (0.5-3.6) ng/ml CK/CKMB % Calc 3.7 H (0-3.0) Troponin I < 0.015 (0-0.045) ng/ml Total Protein 6.8 (6.4-8.2) gm/dl Albumin 3.6 (3.4-5.0) gm/dl Globulin 3.2 (2.5-4.0) gm/dl Albumin/Globulin Ratio 1.1 (0.9-2) Lipase 152 (73-393) U/L Urine Color Yellow Urine Appearance Clear (Clear) Urine pH 6.5 (4.5-7.5) Ur Specific [place] > 1.045 H (1.000-1.030) Urine Protein Negative (Negative) Urine Glucose (UA) Negative (Negative) Urine Ketones Negative (Negative) Urine Blood Negative (Negative) Urine Nitrite Negative (Negative) Urine Bilirubin Negative (Negative) Urine Urobilinogen Negative (Negative) Ur Leukocyte Esterase Negative (Negative) Imaging Data Radiologist's Impression: Radiology results as stated below per my review and the radiologist's interpretation: CT abd pelvis IV con only CT DOSE: 740.52 mGy.cm HISTORY: Pain. Nausea. upper pain TECHNIQUE: Multiaxial CT images of the abdomen and pelvis were performed following the use of intravenous contrast. A dose lowering technique was utilized adhering to the principles of ALARA. COMPARISON STUDY: None. FINDINGS: Lung bases are clear. Liver spleen and pancreas are unremarkable. Bilateral renal cysts. No evidence for renal hydronephrosis. Nonobstructive small bowel pattern. Moderate wall thickening of the sigmoid with a trace amount pericolonic in filtrative change. This appearance suggestive of acute sigmoid diverticulitis. No evidence for abscess collection or obstruction. Normal appendix. Nonobstructive colonic bowel pattern. IMPRESSION: 1. Mild acute proximal to mid sigmoid diverticulitis. 2. Trace pericolonic infiltrative change. 3. No evidence for abscess collection or obstruction. The above report was generated using voice recognition software. It may contain grammatical, syntax or spelling errors. Electronically signed by: Viet Marin M.D. 04/29/2019 10:23 AM Dictated: 04/29/19 1018 Transcribed: 04/29/19 1018 XR chest 1V portable CLINICAL HISTORY: pain dyspnea COMPARISON STUDY: 04/22/2019 FINDINGS: Mild cardiomegaly. Prior median sternotomy. Mild prominence of pul monary vasculature. IMPRESSION: Pulmonary vascular congestion. Mild cardiomegaly. The above report was generated using voice recognition software. It may contain grammatical, syntax or spelling errors. Electronically signed by: Viet Marin M.D. 04/29/2019 9:39 AM Dictated: 04/29/19 0939 Transcribed: 04/29/19 0939 ECG Data Attestation: I personally reviewed and interpreted this ECG as follows: Indication: abdominal pain Rate (beats per minute): 54 Rhythm: sinus bradycardia Findings: + other (Lateral T wave abnormalities notes. No acute ST segment abnormalities. ) Comparison ECG Date: from (04/23/19) Change: no significant change Blood Pressure Blood Pressure Findings: Elevated blood pressure Blood Pressure Disposition: further management by hospitalist KATIA Narrative The patient is a 78-year-old male who presented to the emergency department for an evaluation of upper abdominal pain. The patient does have a history of tobacco as well as alcohol use. He does have a history of reflux. His exam was consistent with very significant epigastric and upper abdominal pain. I discussed the patient's laboratory and radiographic studies with him. He was treated with IV fluids and IV pain medication in the emergency department. He was reevaluated multiple times. Given the patient's degree of pain as well as findings on CAT scan I did discuss his case with the on-call [facility] hospitalist. They have agreed to evaluate the patient in the emergency department for further management disposition. It does appear the patient has a history of recent cardiac catheterization with stent placement. He has not been compliant with his medications at times. His EKG shows no acute changes from previous and his cardiac biomarker was negative. He was also treated with IV antibiotics for presumed diverticulitis. Impression & Plan Abdominal pain, Diverticulitis Discharge Plan Visit Data *Final* Discharge Date/Time: 04/29/19 14:34 Chief Complaint: Abdominal Pain Stated Complaint: SEVERE STOMACH PAIN, NUMBNESS IN HANDS AND FEEL ED Provider: Edgard Blankenship Discharge Problem: Abdominal pain, Diverticulitis Patient Disposition: Admitted As Inpatient Discharge Instructions Interventions: ED Discharge Assessment Last Done: 04/29/19 14:34 Discharge Problem: Abdominal pain Qualifiers: Abdominal location: unspecified location Qualified Code(s): R10.9 - Unspecified abdominal pain The scribe's documentation has been prepared under my direction and personally reviewed by me in its entirety. I confirm that the note above accurately reflects all work, treatment, procedures, and medical decision making performed by me.
[2019-04-29] MEDS: MoRPHine SULFATE 4 MG/ML 1 ML CARP\\VIAL IV PRN ×4 (09:51→15:25)
[2019-04-29 10:08] LABS: iSTAT Hemoglobin 14.6 g/dl (14.0-18.0); iSTAT Ionized Calcium 1.2 mmol/l (1.12-1.32); iSTAT Potassium 3.9 mEq/L (3.3-5.0)
[2019-04-29] MEDS ORDERED: IOVERSOL 100ml IV PRN (10:12)
--- NOTE | 2019-04-29 10:24 | CT Scan Report ---
CT abd pelvis IV con only CT DOSE: 740.52 mGy.cm HISTORY: Pain. Nausea. upper pain TECHNIQUE: Multiaxial CT images of the abdomen and pelvis were performed following the use of intrave nous contrast. A dose lowering technique was utilized adhering to the principles of ALARA. COMPARISON STUDY: None. FINDINGS: Lung bases are clear. Liver spleen and pancreas are unremarkable. Bilateral renal cysts. No evidence for renal hydronephrosis. Nonobstructive small bowel pattern. Moderate wall thickening of the sigmoid with a trace amount pericolonic infiltrative change. This margie earance suggestive of acute sigmoid diverticulitis. No evidence for abscess collection or obstruction . Normal appendix. Nonobstructive colonic bowel pattern. IMPRESSION: 1. Mild acute proximal to mid sigmoid diverticulitis. 2. Trace pericolonic infiltrative change. 3. No evidence for abscess collection or obstruction. The above report was generated using voice recognition software. It may contain grammatical, syntax or spelling errors. Electronically signed by: Viet Marin M.D. 04/29/2019 10:23 AM
[2019-04-29] MEDS ORDERED: PIPERACILLIN/TAZOBACTAM 4.5 GM/120 ML BAG IV ONE (10:36)
[2019-04-29] MEDS ORDERED: PIPERACILL/TAZOBAC CONSULT ACTIVE PRN (10:36)
[2019-04-29 10:53] LABS: Basophils # (auto) 0.04 K/uL (0-0.2); Basophils % (auto) 0.6 %; Eosinophils # (auto) 0.22 K/uL (0-0.5); Eosinophils % (auto) 3.5 %; Hematocrit (blood only) 39.4 % (42-52); Hemoglobin 13.2 g/dL (14.0-18.0); Immature Granulocytes # (auto) 0.04 K/uL (0.00-0.02); Immature Granulocytes % (auto) 0.6 %; Lymphocytes # (auto) 1.08 K/uL (1.2-3.4); Mean Corpuscular Hgb Conc 33.5 g/dL (32-36); Mean Corpuscular Volume 94.3 fL (80-100); Mean Platelet Volume 9.3 fL (7.4-10.4); Monocytes % (auto) 7.9 %; Neutrophils # (auto) 4.46 K/uL (1.4-6.5); Neutrophils % (auto) 70.4 %; Platelet Count 201 K/uL (130-400); RDW Coefficient of Variation 15.4 % (11.5-14.5); RDW Standard Deviation 52.8 fL (36.4-46.3); Red Blood Count 4.18 M/uL (4.7-6.1); White Blood Count 6.34 K/uL (4.8-10.8)
[2019-04-29 11:04] LABS: INR 1.1 (0.9-1.1); Partial Thromboplastin Time 26.1 Seconds (21.0-31.0); Prothrombin Time 11.4 Seconds (9.0-12.0)
[2019-04-29 11:15] LABS: Appearance Urine Clear (Clear); Bilirubin Urine Negative (Negative); Blood Urine Negative (Negative); Color Urine Yellow; Glucose Urine UA Negative (Negative); Ketones Urine Negative (Negative); Leukocyte Esterase Urine Negative (Negative); Nitrite Urine Negative (Negative); Protein Urine Negative (Negative); Specific Gravity Urine > 1.045 (1.000-1.030); Urobilinogen Urine Negative (Negative); pH Urine 6.5 (4.5-7.5)
[2019-04-29 11:18] LABS: Alanine Aminotransferase 33 U/L (12-78); Albumin Level 3.6 gm/dl (3.4-5.0); Aspartate Aminotransferase 15 U/L (15-37); BUN Creatinine Ratio 12.5 (10-20); Bilirubin Direct 0.2 mg/dl (0-0.2); Blood Urea Nitrogen 12 mg/dl (7-18); Carbon Dioxide 29 mmol/L (21-32); Chloride 105 mmol/L (98-107); Creatinine Clr Calc Pharmacy 77.5 ml/min; Est GFR (African American) 92.1; Est GFR (Non-African American) 79.5; Glucose 142 mg/dl (70-99); Potassium 3.9 mmol/L (3.5-5.1); Sodium 140 mmol/L (136-145)
[2019-04-29 11:23] LABS: Albumin Globulin Ratio 1.1 (0.9-2); Alkaline Phosphatase 74 U/L (45-117); Bilirubin,Total 0.6 mg/dl (0.2-1); Creatine Kinase 52 U/L (39-308); Creatine Kinase MB 1.9 ng/ml (0.5-3.6); Globulin 3.2 gm/dl (2.5-4.0); Total Protein 6.8 gm/dl (6.4-8.2); Troponin I < 0.015 ng/ml (0-0.045)
--- NOTE | 2019-04-29 11:54 | History & Physical Report ---
Date of Service April 29, 2019 Assessment & Plan (1) Abdominal pain: -Admit to [facility] for observation -Patient describes this as an indigestion-like pain in the epigastric region -Received IV pain medication in the ER, patient rates pain 2/10 currently -GI cocktail ordered x 1 now, continue prn -GI consulted, consider upper endoscopy tomorrow, will make n.p.o. after midnight -Trial starting ranitidine as pantoprazole appears to not be controlling patient's sx -Last colonoscopy was over 10 years ago -CT abd/pelvis showing mild diverticulitis, continue to monitor, patient's pain is epigastric versus lower abdominal pain -Will allow clear liquid diet for now -Encourage cessation of alcohol use (2) GERD (gastroesophageal reflux disease): -Continue pantoprazole, initiate ranitidine (3) Diverticulitis: -As noted above -Unlikely that this is the primary cause of the pt epigastric pain however can not rule this out entirely. -Will allow clears as above. -GI consulted (4) Coronary artery disease: - Continue ASA 81 mg QAM, Plavix 75 mg QAM, metoprolol succ 25 mg QAM - Followed with Dr. Rios for stent placed during last admission, consider cardiology consult if any development of cardiac symptoms (5) Hx of CABG: (6) Non-ST elevation (NSTEMI) myocardial infarction: - Resolved, occurred on 02/15/2019 - s/p PCI to OM 2 and prior TORRES to LAD by Dr. Rios (7) Hypertension: - Continue antihypertensives as above (8) Hx of aortic valve replacement: - Noted, stable (9) Elevated troponin: -Most recent admission was less than 1 week ago, patient denies any cardiac complaints at this point time -Troponin today is negative, CK-MB = 3.7, possibly elevated s/p procedure which occurred approximately 1 week ago (10) Hyperlipidemia LDL goal <70: -Continue atorvastatin 80 mg QAM (11) Alcohol use: - Drink approx 3 beers daily - Encouraged cessation - Pt reports limiting alcohol since having stent placed during last admission - No concerns for withdrawal (12) Tobacco abuse: - Tobacco use for many years, smokes 1/2 ppd - Order nicotine patch - Cessation encouraged. (13) Obesity (BMI 30.0-34.9): - BMI of 33.5, diet and exercise to be encouraged throughout hospital stay as well as upon discharge. (14) DVT prophylaxis: -teds, encourage ambulation Dispo: From home, likely can d/c tomorrow if sx improve History of Present Illness Primary Care Provider: Esequiel Paige MD This is a 78 yo M with PMHx of significant cardiac disease including CAD, HTN, HLD, hx of CABG, hx of TX on 02/15/19 followed by coronary artery stent on 02/15/19, hx of aortic valve replacement, GERD, alcohol use and tobacco abuse. The patient was recently admitted from 04/22/19-04/24/19 for episode of chest pain. The patient represents today with worsening abdominal pain in the epigastric region. Patient reports that his epigastric pain started earlier this week on Tuesday, actually on the day he was discharged. He reports that it is currently a 2/10 but that he has received pain medication, he also appears to be slightly drowsy during my exam. He notes his abdominal pain is worse whenever he lies flat to go to bed at night, complains of an indigestion-like complaint, burning, bloating/distention. Patient reports he "lives on Tums" but that nothing seems to control his acid reflux. He denies any chest pain at all, shortness of breath, flutter, palpitation, headache or dizziness. He denies any vomiting, nausea or changes in bowels. His last bowel movement was yesterday, denies history of diarrhea or constipation. He denies chronic use of NSAIDs. He admits to drinking alcohol, approximately 3 beers per day but reports that he has not had many alcoholic drinks since being admitted during the last admission nor since going home. Allergies Allergy/AdvReac Type Severity Reaction Status Date / Time codeine Allergy Unknown "EYES GO Verified 04/29/19 09:32 SHUT AND HEAD SWELLS" Home Medications Home Medications Medication Instructions Recorded Confirmed Type aspirin [Ecotrin Low Strength] 81 mg PO QAM #1 tab 02/17/19 04/29/19 Rx atorvastatin 80 mg PO QAM #60 tab 02/17/19 04/29/19 Rx clopidogrel 75 mg PO QAM #30 tab 02/17/19 04/29/19 Rx metoprolol succinate 25 mg PO QAM #30 tab 02/17/19 04/29/19 Rx nitroglycerin [Nitrostat] 0.4 mg SUBLINGUAL UD PRN #1 btl 04/23/19 04/29/19 Rx pantoprazole [Protonix] 40 mg PO QAM #30 tab 04/23/19 04/29/19 Rx Past Med/Surg History Medical History Tobacco abuse Alcohol use GERD (gastroesophageal reflux disease) Abdominal pain (Acute) Diverticulitis (Acute) Hyperlipidemia LDL goal <70 Coronary artery disease Non-ST elevation (NSTEMI) myocardial infarction (Acute) Hypertension Elevated troponin (Acute) Near syncope (Acute) Abdominal pain (Acute) Dizziness (Acute) Nausea, vomiting, and diarrhea (Acute) Vertigo (Acute) CAD (coronary artery disease) Surgical History Hx of aortic valve replacement Hx of CABG History of back surgery (Chronic) History of neck surgery Family History Other Coronary heart disease Social History Preferred Language: Urdu Communication Ability: Effective 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 Beliefs That Will Affect Care: None marital status: Current Living Situation: Spouse Other Information That Helps Us Care for You: No Feels Safe at Home: Yes Safety Concerns: Feels Safe At This Time Smoking Status: Current every day smoker Tobacco Type: cigarettes Cigarettes Per Day: 6 Do You Dip or Chew Tobacco: No Second Hand Exposure: No Tobacco Cessation Education Requested by Patient: No Hx Alcohol Use: Yes Alcohol type: beer Alcohol Intake Frequency: Daily Hx Substance Use: No Review of Systems Review of Systems: Constitutional: No fever, sweats or chills Eyes: No diplopia, no worsening or blurred vision ENT: normal hearing, no trouble swallowing Respiratory: No cough, sputum, dyspnea at rest or on exertion Cardiovascular: No chest pain, tightness or palpitations Abdomen: + pain as per HPI, + indigestion, + bloating/distention, no nausea, vomiting, diarrhea or constipation Musculoskeletal: No joint pain, calf pain, swelling Neurologic: No weakness, numbness/tingling, or balance problems Psychiatric: No anxiety or depression Skin: No rash or itch Physical Exam Physical Exam: Constitutional: WD/AT, red face appearance, slightly drowsy during exam Eyes: PERRL, EOMI ENT: hearing grossly normal, pharynx normal, mucous membranes slightly dry Respiratory: On 2 L via NC, no respiratory distress, lungs clear, no adventitious breath sounds, no accessory muscle use Cardiovascular: +bradycardic with HR in high 50s-mid 60s, no MRGs, peripheral pulses intact Abdomen: NABS x 4, + distended, + distal tympanic on exam, + tenderness in epigastric region, no rebound or guarding Extremities: Non-tender, no pedal edema, no calf tenderness with palpation Neurologic: AAO x 3, CN II-XII intact, no motor weakness Psychiatric: Normal mood and affect Skin: Red-faced appearance, otherwise appears warm/dry, no rash Constitutional: WD/WN, vitals as above Eyes: normal visual herrera by confrontation and + anicteric sclerae Neck: normal visual inspection and trachea midline Respiratory: normal respiratory effort, lungs clear to auscultation Cardiovascular: Rate/Rhythm: regular rate and regular rhythm Gastrointestinal (Abdomen): Inspection/Auscultation: + abdomen distended Percussion/Palpation: + abdomen tender (epigastric, mild TTP) and abdomen soft Musculoskeletal: Head/Neck/Chest: normocephalic and head atraumatic Neg for peripheral LE edema, + pedal pulses Skin: no rashes, warm and dry Neurologic: awake; not confused Speech / Cognition: normal speech Psychiatric: A+Ox3, euthymic affect Lymphatic: Exam as done by Andria Thomas DO Results & Data Vital Signs (Past 12 Hours) Vital Signs Temp Pulse Pulse Resp BP BP Pulse Ox 04/29/19 11:04 63 12 206/89 H 92 04/29/19 09:55 56 L 16 179/106 H 96 04/29/19 09:07 36.7 C 53 L 18 178/[address] H [address] abd pelvis IV con only CT DOSE: 740.52 mGy.cm HISTORY: Pain. Nausea. upper pain TECHNIQUE: Multiaxial CT images of the abdomen and pelvis were performed following the use of intravenous contrast. A dose lowering technique was utilized adhering to the principles of ALARA. COMPARISON STUDY: None. FINDINGS: Lung bases are clear. Liver spleen and pancreas are unremarkable. Bilateral renal cysts. No evidence for renal hydronephrosis. Nonobstructive small bowel pattern. Moderate wall thickening of the sigmoid with a trace amount pericolonic infiltrative change. This appearance suggestive of acute sigmoid diverticulitis. No evidence for abscess collection or obstruction. Normal appendix. Nonobstructive colonic bowel pattern. IMPRESSION: 1. Mild acute proximal to mid sigmoid diverticulitis. 2. Trace pericolonic infiltrative change. 3. No evidence for abscess collection or obstruction. XR chest 1V portable CLINICAL HISTORY: pain dyspnea COMPARISON STUDY: 04/22/2019 FINDINGS: Mild cardiomegaly. Prior median sternotomy. Mild prominence of pulmonary vasculature. IMPRESSION: Pulmonary vascular congestion. Mild cardiomegaly. ECG Additional Comments: 29-APR-2019 09:24:33 [facility]-EDSTAT ROUTINE RETRIEVAL Sinus bradycardia T wave abnormality, consider lateral ischemia Abnormal ECG When compared with ECG of 23-APR-2019 06:26, Premature atrial complexes are no longer Present 25mm/s 10mm/mV 150Hz 9.0.8 12SL 241 DHAVAL: 15 Referred by: REFERRED SELF Unconfirmed Vent. rate 54 BPM ND interval 142 ms QRS duration 86 ms QT/QTc 438/415 ms P-R-T axes 56 53 136 Supervising Physician Co-Signing Physician Notes Pt seen and examined by me. Denies chest pain or SOB. Noted that epigastric pain is better. He was given morphine and GI cocktail at the same time, however. No n/v. Agree with HPI/ROS as noted by PA See above for my exam in PE section Agree with plan as outlined above Adb pain CTAP noted for diverticulitis, however pain is all epigastric ?? resolved with GI cocktail as morphine given at the same time. States that the morphine alone did not help at all prior though Advised that if return of pain, he should ask for GI cocktail only t/c GI c/s if this does help PG Care Time/CCT Total # of Minutes Spent Total Time Spent with Patient: Total time spent is greater than 50% in coordination of care (as documented) at patient's floor/unit and/or counseling patient: (1) Abdominal pain Abdominal location: unspecified location Qualified Code(s): R10.9 - Unspecified abdominal pain (2) Hypertension Hypertension type: essential hypertension Qualified Code(s): I10 - Essential (primary) hypertension
[2019-04-29] MEDS ORDERED: ALUMINUM/MAGNESIUM SUSP 18 ML, LIDOCAINE HCL VISCOUS 2% 6 ML, BARCODE IDENTIFIER 1 EA PO ONE (12:40)
[2019-04-29] MEDS ORDERED: GI COCKTAIL ED USE PO ONE (12:46)
[2019-04-29] MEDS ORDERED: NITROGLYCERIN SL 0.4 MG/TAB TAB SL PRN (14:59)
[2019-04-29] MEDS ORDERED: ALUMINUM/MAGNESIUM SUSP 72 ML, LIDOCAINE HCL VISCOUS 2% 24 ML, BARCODE IDENTIFIER 1 EA PO PRN ×2 (14:59→17:48)
[2019-04-29] MEDS: MoRPHine SULFATE 2 MG/ML CARP IV PRN ×4 (16:53→23:32)
[2019-04-29] MEDS: PIPERACILLIN/TAZOBACTAM 3.375 GM in DEXTROSE 5% 100 ML IV SCH (17:05)
[2019-04-29] MEDS ORDERED: Nursing to Pharmacy Communication ONE (17:46)
[2019-04-29] MEDS: ONDANSETRON INJ 2 MG/ML 2 ML VIAL IV PRN ×2 (17:49→23:32)
[2019-04-29] MEDS ORDERED: POLYETHYLENE (MIRALAX) 17 GM PACK ONE (22:23)
[2019-04-29] MEDS: POLYETHYLENE (MIRALAX) 17 GM PACK PO PRN (22:26)
[2019-04-29] MEDS: HydrALAZINE HCL 20 MG/ML VIAL IV PRN (23:59)
[2019-04-30] MEDS: PIPERACILLIN/TAZOBACTAM 3.375 GM in DEXTROSE 5% 100 ML IV SCH ×3 (01:07→16:46)
[2019-04-30] MEDS: MoRPHine SULFATE 2 MG/ML CARP IV PRN ×9 (01:58→23:33)
[2019-04-30] MEDS: ONDANSETRON INJ 2 MG/ML 2 ML VIAL IV PRN ×2 (04:17→23:33)
[2019-04-30 07:08] LABS: Hematocrit (blood only) 40.3 % (42-52); Mean Corpuscular Hgb Conc 34.7 g/dL (32-36); Mean Corpuscular Volume 93.9 fL (80-100); Mean Platelet Volume 9.2 fL (7.4-10.4); Platelet Count 224 K/uL (130-400); RDW Coefficient of Variation 15.2 % (11.5-14.5); RDW Standard Deviation 51.5 fL (36.4-46.3); Red Blood Count 4.29 M/uL (4.7-6.1); White Blood Count 9.28 K/uL (4.8-10.8)
[2019-04-30 07:35] LABS: Albumin Level 3.6 gm/dl (3.4-5.0); BUN Creatinine Ratio 10.1 (10-20); Calcium 8.7 mg/dl (8.5-10.1); Creatinine Clr Calc Pharmacy 70.6 ml/min; Est GFR (African American) 84.4; Est GFR (Non-African American) 72.8; Potassium 3.9 mmol/L (3.5-5.1)
[2019-04-30 07:38] LABS: Albumin Globulin Ratio 1.1 (0.9-2); Bilirubin,Total 0.7 mg/dl (0.2-1); Globulin 3.3 gm/dl (2.5-4.0); Total Protein 6.9 gm/dl (6.4-8.2)
[2019-04-30] MEDS: CLOPIDOGREL BISULFATE 75 MG TAB PO SCH (08:56)
[2019-04-30] MEDS: PANTOprazole 40 MG TAB PO SCH (08:56)
[2019-04-30] MEDS: ATORVASTATIN 40 MG TAB PO SCH (08:59)
[2019-04-30] MEDS: METOPROLOL SUCC 25MG EXT REL TAB PO SCH (08:59)
[2019-04-30] MEDS: ASPIRIN 81 MG ECTAB PO SCH (09:00)
[2019-04-30] MEDS: SIMETHICONE 80 MG CHEW PO PRN (09:32)
--- NOTE | 2019-04-30 11:03 | XRay Report ---
XR KUB/Abdomen 1 view CLINICAL HISTORY: abdominal pain COMPARISON STUDY: 04/23/2019 FINDINGS: Postsurgical changes are present within the lower lumbar spine. There are pelvic vascular c alcifications present. There are no calcifications suspicious for urinary tract calculi. There is no pathologic bowel dilatation. IMPRESSION: No evidence of pathologic bowel dilatation. Electronically signed by: Hilton Mendoza M.D. 04/30/2019 11:02 AM
[2019-04-30] MEDS ORDERED: PIPERACILLIN/TAZOBACTAM 3.375 GM in DEXTROSE 5% 100 ML IV SCH (12:30)
[2019-04-30] MEDS ORDERED: BISACODYL 10 MG SUPP PR PRN (16:59)
--- NOTE | 2019-04-30 16:59 | Hospitalist Progress Note ---
Date of Service April 30, 2019 Assessment & Plan (1) Abdominal pain: -initially admitting provider considered consulting GI for upper GI symptoms. Patient was here recently for chest pain deemed unlikely to be ACS, more likely GI related and was to see GI outpatient for scope which it does not appear he was able to do yet. For now will hold off on GI consult - pain is lower abdomen and likely result of diverticulitis. I don't know that endoscopy would be helpful with his current symptoms. -Trial starting ranitidine as pantoprazole appears to not be controlling patient's sx -Last colonoscopy was over 10 years ago -CT abd/pelvis showing mild diverticulitis - no evidence of acute abdomen, no free air on KUB today or obstruction -Will allow clear liquid diet for now - morphine prn pain (2) GERD (gastroesophageal reflux disease): -Continue pantoprazole, ranitidine (3) Diverticulitis: -As noted above -continue Zosyn - clear liquids - no acute abdomen, leukocytosis, or fever (4) Coronary artery disease: - Continue ASA 81 mg QAM, Plavix 75 mg QAM, metoprolol succ 25 mg QAM - Followed with Dr. Rios for stent placed during last admission, consider cardiology consult if any development of cardiac symptoms (5) Hx of CABG: (6) Non-ST elevation (NSTEMI) myocardial infarction: - Resolved, occurred on 02/15/2019 - s/p PCI to OM 2 and prior TORRES to LAD by Dr. Rios (7) Hypertension: - Continue antihypertensives as above (8) Hx of aortic valve replacement: - Noted, stable (9) Elevated troponin: -Most recent admission was less than 1 week ago, patient denies any cardiac complaints at this point time -Troponin today is negative, CK-MB = 3.7, possibly elevated s/p procedure which occurred approximately 1 week ago (10) Hyperlipidemia LDL goal <70: -Continue atorvastatin 80 mg QAM (11) Alcohol use: - Drink approx 3 beers daily - Encouraged cessation - Pt reports limiting alcohol since having stent placed during last admission (12) Tobacco abuse: - Tobacco use for many years, smokes 1/2 ppd - Order nicotine patch - Cessation encouraged. (13) Obesity (BMI 30.0-34.9): - BMI of 33.5, diet and exercise to be encouraged throughout hospital stay as well as upon discharge. (14) DVT prophylaxis: -teds, encourage ambulation Subjective Mr. Francis continues to have abdominal pain. He is also hungry and requesting food. His pain is mid to lower belly. He denies epigastric pain or chest pain. No nausea or vomiting. Review of Systems Review of Systems: All systems reviewed & are unremarkable except as noted in HPI & below Physical Exam Physical Exam: General: no distress Eyes: normal inspection, PERLL Respiratory: chest non tender, clear to auscultation, normal breath sounds, no respiratory distress, no accessory muscle use Cardiac: regular rate and rhythm, no rub or gallop, no murmur, no edema, no jvd GI/: active bowel sounds, tender abdomen lower quadrants, soft, no guarding, non distended, no rebound tenderness Extremities: normal range of motion, normal strength, non tender Neuro/Psych: alert and oriented x 3, normal mood and affect Skin: normal color, dry Results & Data Vital Signs (Past 12 Hours) Vital Signs Temp Pulse Resp BP BP Pulse Ox 04/30/19 15:56 36.8 C 53 L 18 180/86 H 97 04/30/19 09:00 57 L 04/30/19 07:27 36.8 C 55 L 18 142/71 H 92 PG Care Time/CCT Total # of Minutes Spent Total Time Spent with Patient: Total time spent is greater than 50% in coordination of care (as documented) at patient's floor/unit and/or counseling patient: (1) Abdominal pain Abdominal location: unspecified location Qualified Code(s): R10.9 - Unspecified abdominal pain (2) Hypertension Hypertension type: essential hypertension Qualified Code(s): I10 - Essential (primary) hypertension
[2019-04-30] MEDS: POLYETHYLENE (MIRALAX) 17 GM PACK PO PRN (18:46)
[2019-04-30] MEDS: DOCUSATE SODIUM 100 MG CAP PO SCH (21:00)
[2019-04-30] MEDS: HydrALAZINE HCL 20 MG/ML VIAL IV PRN (22:51)
[2019-05-01] MEDS ORDERED: HYDROmorphone INJ 1 MG/ML SYRINGE IV STA (00:06)
[2019-05-01] MEDS: PIPERACILLIN/TAZOBACTAM 3.375 GM in DEXTROSE 5% 100 ML IV SCH ×4 (01:18→23:48)
[2019-05-01] MEDS: MoRPHine SULFATE 2 MG/ML CARP IV PRN ×6 (02:41→18:24)
[2019-05-01 05:27] LABS: Hematocrit (blood only) 43.7 % (42-52); Hemoglobin 15.4 g/dL (14.0-18.0); Mean Corpuscular Hgb Conc 35.2 g/dL (32-36); Mean Corpuscular Volume 90.9 fL (80-100); Mean Platelet Volume 8.9 fL (7.4-10.4); Platelet Count 219 K/uL (130-400); Red Blood Count 4.81 M/uL (4.7-6.1); White Blood Count 8.41 K/uL (4.8-10.8)
[2019-05-01 05:54] LABS: Albumin Level 4.1 gm/dl (3.4-5.0); BUN Creatinine Ratio 10.1 (10-20); Calcium 8.6 mg/dl (8.5-10.1); Creatinine Clr Calc Pharmacy 69.2 ml/min; Est GFR (African American) 82.4; Est GFR (Non-African American) 71.1; Potassium 3.9 mmol/L (3.5-5.1)
[2019-05-01 05:57] LABS: Albumin Globulin Ratio 1.1 (0.9-2); Bilirubin,Total 1.1 mg/dl (0.2-1); Globulin 3.8 gm/dl (2.5-4.0); Total Protein 7.9 gm/dl (6.4-8.2)
[2019-05-01] MEDS: PANTOprazole 40 MG TAB PO SCH (07:39)
[2019-05-01] MEDS: ACETAMINOPHEN 325 MG TAB PO PRN (07:41)
[2019-05-01] MEDS: ONDANSETRON INJ 2 MG/ML 2 ML VIAL IV PRN (07:50)
[2019-05-01] MEDS: ASPIRIN 81 MG ECTAB PO SCH (09:07)
[2019-05-01] MEDS: ATORVASTATIN 40 MG TAB PO SCH (09:07)
[2019-05-01] MEDS: CLOPIDOGREL BISULFATE 75 MG TAB PO SCH (09:07)
[2019-05-01] MEDS: METOPROLOL SUCC 25MG EXT REL TAB PO SCH (09:07)
[2019-05-01] MEDS: DOCUSATE SODIUM 100 MG CAP PO SCH ×2 (09:08→20:27)
--- NOTE | 2019-05-01 10:41 | Ultrasound Report ---
US gallbladder HISTORY: 78 years-old Male elevated biliruben, abdominal pain acute generalized abdominal pain COMPARISON: CT abdomen and pelvis 04/29/2019 TECHNIQUE: Multiple real time sonographic images of the abdominal right upper quadrant were obtained assessing grayscale appearance and color flow FINDINGS: Pancreas appears unremarkable. No pancreatic ductal dilation. Increased echogenicity of the liver wit h poor through transmission compatible with fatty infiltration with areas of fatty sparing about the carl hepatis. No focal hepatic mass lesion or marginal nodularity to suggest cirrhosis. Gallbladder wall is mildly thickened at 4 mm. No cholelithiasis or pericholecystic fluid. Gallbladder is minimall y distended. Cysts of the right kidney are noted. Right adrenal gland lesion redemonstrated, 2.1 cm which is indet erminate. IMPRESSION: 1. Mild nonspecific gallbladder wall thickening without cholelithiasis or sonographic evidence of acu te cholecystitis. Correlate clinically. 2. Hepatic steatosis. 3. No biliary ductal dilation. 4. Indeterminate 2.1 cm right adrenal gland lesion. The above report was generated using voice recognition software. It may contain grammatical, syntax o r spelling errors. Electronically signed by: Saman Fuentes M.D. 05/01/2019 10:40 AM
[2019-05-01] MEDS: HydrALAZINE HCL 20 MG/ML VIAL IV PRN ×2 (11:15→23:49)
--- NOTE | 2019-05-01 11:19 | Hospitalist Progress Note ---
Date of Service May 01, 2019 Assessment & Plan (1) Abdominal pain: -initially admitting provider considered consulting GI for upper GI symptoms. -Last colonoscopy was over 10 years ago -CT abd/pelvis showing mild diverticulitis - no evidence of acute abdomen, no free air on KUB or obstruction - consulted GI - endoscopy 05/01 did not show any acute proce - resume liquid diet for now - morphine prn pain (2) GERD (gastroesophageal reflux disease): -Continue pantoprazole, ranitidine (3) Diverticulitis: -As noted above -continue Zosyn - clear liquids - no acute abdomen, leukocytosis, or fever (4) Coronary artery disease: - Continue ASA 81 mg QAM, Plavix 75 mg QAM, metoprolol succ 25 mg QAM - Followed with Dr. Rios for stent placed during last admission (5) Hx of CABG: (6) Non-ST elevation (NSTEMI) myocardial infarction: - Resolved, occurred on 02/15/2019 - s/p PCI to OM 2 and prior TORRES to LAD by Dr. Rios (7) Hypertension: - Continue antihypertensives as above (8) Hx of aortic valve replacement: - Noted, stable (9) Elevated troponin: -Most recent admission was less than 1 week ago, patient denies any cardiac complaints at this point time -Troponin on admission was negative, CK-MB = 3.7, possibly elevated s/p procedure which occurred approximately 1 week ago (10) Hyperlipidemia LDL goal <70: -Continue atorvastatin 80 mg QAM (11) Alcohol use: - Drinks approx 3 beers daily - Encouraged cessation - Pt reports limiting alcohol since having stent placed during last admission (12) Tobacco abuse: - Tobacco use for many years, smokes 1/2 ppd - Order nicotine patch - Cessation encouraged. (13) Obesity (BMI 30.0-34.9): - BMI of 33.5, diet and exercise to be encouraged throughout hospital stay as well as upon discharge. (14) DVT prophylaxis: -teds, encourage ambulation (15) Lesion of adrenal gland: 2.1 cm adrenal gland lesion found on gallbladder US Follow up outpatient (16) Hepatic steatosis: Seen on gallbladder US Alcohol cessation and dietary modification counseling - will need to be reinforced with pcp as patient is receiving narcotics and may not be at his most teachable at this time. Subjective Mr. Francis continues to have significant abdominal pain that is mid to lower left side generally. He is not nauseas, no diarrhea Review of Systems Review of Systems: All systems reviewed & are unremarkable except as noted in HPI & below Physical Exam Physical Exam: General: no distress Eyes: normal inspection, PERLL Respiratory: chest non tender, clear to auscultation, normal breath sounds, no respiratory distress, no accessory muscle use Cardiac: regular rate and rhythm, no rub or gallop, systolic murmur, no edema, no jvd GI/: active bowel sounds, left lower quadrant abdominal tenderness to palpation , soft, non distended Extremities: normal range of motion, normal strength, non tender Neuro/Psych: alert and oriented x 3, normal mood and affect Skin: normal color, dry Results & Data Vital Signs (Past 12 Hours) Vital Signs Temp Pulse Resp BP BP Pulse Ox 05/01/19 10:38 37 C 65 180/91 H 93 05/01/19 07:30 36.5 C 71 18 157/90 H 94 05/01/19 01:21 158/66 H 05/01/19 00:00 60 189/103 H 04/30/19 23:25 36.6 C 58 L 18 194/90 H 94 PG Care Time/CCT Total # of Minutes Spent Total Time Spent with Patient: Total time spent is greater than 50% in coordination of care (as documented) at patient's floor/unit and/or counseling patient: (1) Abdominal pain Abdominal location: unspecified location Qualified Code(s): R10.9 - Unspecified abdominal pain (2) Hypertension Hypertension type: essential hypertension Qualified Code(s): I10 - Essential (primary) hypertension
--- NOTE | 2019-05-01 11:19 | Gastrointestinal Consultation ---
Date of Consultation May 01, 2019 Assessment & Plan (1) Abdominal pain: Diffuse, migratory abdominal pain. Differentials considered are diverticulitis, gastritis, mesenteric arterial occlusive disease though he does not appear to have a surgical abdomen. On exam, he is soft, non distended and only tender if deeply palpated in the LLQ which is expected with diverticulitis. Of note, irregular heart beat was reported to the primary hospitalist for work up. If no acute cardiac issues then we could go forward with EGD this afternoon. Present on Admission?: Yes Supervising Physician Co-Signing Physician Notes Saw and evaluated the patient. We are consulted for epigastric discomfort. We are certainly happy to provide endoscopic evaluation for suspected peptic ulcer disease. The imaging study does suggest possible diverticulitis. If the upper endoscopy is negative we would recommend broad-spectrum antibiotic coverage for 2 weeks. Physical examination No obvious distress Mild epigastric tenderness localizing to the mid abdomen and left lower quadrant Impression: Patient with several episodes of unexplained discomfort, cardiology requesting upper endoscopy for further evaluation. We are planning to proceed with upper endoscopy today. I discussed the risks and benefits of the exam with the patient to include bleeding, infection, perforation and cardiopulmonary problems. Recommendations Upper endoscopy today Continue with broad-spectrum antibiotic coverage just suspected diverticulitis History of Present Illness Reason for Consultation: Epigastric pain Attending Physician: Brendon Carrillo MD History of Present Illness Mr. Waldemar Francis is a 78 yr old male pt of Dr. Paige with a hx of CAD, prior CABG and stenting, NSTEMI in February 2019, then admitted last week with chest pain that was thought to be non cardiac. The pt presented to the ED on 04/[address] on arrival with mild sigmoid diverticulitis though pt tells us his pain is in the epigastric area. US with mild GB wall thickening though no stones and no bile duct abnormalities. GI is consulted to evaluate his abdominal pain because his pain is out of proportion to exam findings and is in a different area than expected with mild diverticulosis. The pain began a week ago and has been present every day since then, and is worsening. At home, pain was mainly at night time, "all night long," mostly periumbilical, though migratory and pain is a burning. It has progressed to being present all day long, every day. When the pain is present and he eats, there is no change in pain after eating. Here, he has about an hour of relief from this pain with the Morphine 2mg which is given every 2 hrs. No blood in BMs. Some nausea with the pain but no vomiting. He is maintained on ASA, Plavix. He has lost about 15 lbs in the past week. Allergies Allergy/AdvReac Type Severity Reaction Status Date / Time codeine Allergy Unknown "EYES GO Verified 04/29/19 09:32 SHUT AND HEAD SWELLS" zolpidem [From Ambien] Allergy Unverified 04/30/19 15:13 Home Medications Home Medications Medication Instructions Recorded Confirmed Type aspirin [Ecotrin Low Strength] 81 mg PO QAM #1 tab 02/17/19 04/29/19 Rx atorvastatin 80 mg PO QAM #60 tab 02/17/19 04/29/19 Rx clopidogrel 75 mg PO QAM #30 tab 02/17/19 04/29/19 Rx metoprolol succinate 25 mg PO QAM #30 tab 02/17/19 04/29/19 Rx nitroglycerin [Nitrostat] 0.4 mg SUBLINGUAL UD PRN #1 btl 04/23/19 04/29/19 Rx pantoprazole [Protonix] 40 mg PO QAM #30 tab 04/23/19 04/29/19 Rx cyclobenzaprine 10 mg tablet PO .TAKE 1 TABLET 3 TIME #21 tab 04/30/19 04/30/19 History diazepam 2 mg tablet 4 PO .TAKE 4 TABLET Daily tab 04/30/19 04/30/19 History naproxen 500 mg tablet PO .TAKE 1 TABLET BY TK #180 tab 04/30/19 04/30/19 History prednisone 20 mg tablet 20 mg PO .TAKE 2 TABLET Daily #14 04/30/19 04/30/19 History tab Patient History Medical History Tobacco abuse Alcohol use GERD (gastroesophageal reflux disease) Abdominal pain (Acute) Diverticulitis (Acute) Hyperlipidemia LDL goal <70 Coronary artery disease Non-ST elevation (NSTEMI) myocardial infarction (Acute) Hypertension Elevated troponin (Acute) Near syncope (Acute) Abdominal pain (Acute) Dizziness (Acute) Nausea, vomiting, and diarrhea (Acute) Vertigo (Acute) CAD (coronary artery disease) Surgical History Hx of aortic valve replacement Hx of CABG History of back surgery (Chronic) History of arthroscopy of right knee History of neck surgery Family History Other Coronary heart disease Social History Preferred Language: German Communication Ability: Effective Tmd Teacher Required: No Beliefs That Will Affect Care: None marital status: Current Living Situation: Spouse Other Information That Helps Us Care for You: No Feels Safe at Home: Yes Safety Concerns: Feels Safe At This Time Smoking Status: Current every day smoker Tobacco Type: cigarettes Cigarettes Per Day: 6 Do You Dip or Chew Tobacco: No Second Hand Exposure: No Tobacco Cessation Education Requested by Patient: No Hx Alcohol Use: Yes Alcohol type: beer Alcohol Intake Frequency: Daily Hx Substance Use: No Review of Systems Constitutional: + body aches (some mild aches in the upper legs); no fever, no chills and no weakness Eyes: no discharge, no dry eyes and no eye pain Ear, Nose, Mouth, Throat: + dizziness (and lightheaded since a few days ago; occurs briefly with standing); no tinnitus and no pain with swallowing Respiratory: no cough and no wheezing Cardiovascular: no chest pain (none in the past week), no syncope and no edema Gastrointestinal: + abdominal pain, + bloating (intermittent) and + nausea; no vomiting Genitourinary: no dysuria, no hematuria and no flank pain Integumentary: no rash, no lesions, no skin ulcer and no sores Neurologic: no gait abnormality, no falls and no numbness Psychiatric: no depression and no panic attacks Endocrine: + fatigue (because not sleeping due to pain); no polydipsia, no polyphagia and no polyuria Physical Exam Constitutional: WD/WN, vitals as above ENMT: external ear and nose normal, oropharynx normal Neck: trachea midline, no thyromegaly Respiratory: normal respiratory effort, lungs clear to auscultation Cardiovascular: Regular rate but irregular rhythm. No murmurs Gastrointestinal (Abdomen): Soft, hypoactive BS. Non distended. Tender with deep palpation of the LLQ only. Skin: no rashes, warm and dry Neurologic: PERRL, EOMI, accommodation nl, no face palsy, no dysarthria Lymphatic: no cervical or axillary lymphadenopathy Results & Data Vital Signs (Past 12 Hours) Vital Signs Temp Pulse Resp BP BP Pulse Ox 05/01/19 10:38 37 C 65 180/91 H 93 05/01/19 07:30 36.5 C 71 18 157/90 H 94 05/01/19 01:21 158/66 H 05/01/19 00:00 60 189/103 H 04/30/19 23:25 36.6 C 58 L 18 194/90 H 94 Laboratory Results WBC 8, Hb 15, Hct 43, Platelets 219, INR 1.1, Na 134, K 3.9, BUN 10, Cr 1.02, glucose 150. Diagnostic Findings US: 1. Mild nonspecific gallbladder wall thickening without cholelithiasis or sonographic evidence of acute cholecystitis. Correlate clinically. 2. Hepatic steatosis. 3. No biliary ductal dilation. 4. Indeterminate 2.1 cm right adrenal gland lesion. CT 1. Mild acute proximal to mid sigmoid diverticulitis. 2. Trace pericolonic infiltrative change. 3. No evidence for abscess collection or obstructio (1) Abdominal pain Abdominal location: unspecified location Qualified Code(s): R10.9 - Unspecifi ed abdominal pain
--- NOTE | 2019-05-01 13:35 | Anesthesiology Consultation ---
Date of Service May 01, 2019 Assessment & Plan (1) Encounter for pre-operative examination: Chart Review Chart Review: Acceptable Risk for Surgery Consults Requested none ASA ASA4 Proposed Anesthesia Anesthesia Type: MAC Risk / Benefits Reviewed With: PT / POA / Parent / Guardian, Accepts Plan and Informed Consent Obtained History Surgery Operation Date: 05/01/19 10:30 Proposed Procedures p Esophagogastroduodenoscopy Dr Nahid Whitfield Height/Weight Height: 5 ft 8 in Weight: 93.8 kg Allergies Allergy/AdvReac Type Severity Reaction Status Date / Time codeine Allergy Unknown "EYES GO Verified 04/29/19 09:32 SHUT AND HEAD SWELLS" zolpidem [From Ambien] Allergy Unverified 04/30/19 15:13 Medications Home Medications Medication Instructions Recorded Confirmed Last Taken aspirin [Ecotrin Low Strength] 81 mg PO QAM #1 tab 02/17/19 04/29/19 04/28/19 atorvastatin 80 mg PO QAM #60 tab 02/17/19 04/29/19 04/28/19 clopidogrel 75 mg PO QAM #30 tab 02/17/19 04/29/19 04/28/19 metoprolol succinate 25 mg PO QAM #30 tab 02/17/19 04/29/19 04/28/19 nitroglycerin [Nitrostat] 0.4 mg SUBLINGUAL UD PRN #1 btl 04/23/19 04/29/19 Unknown pantoprazole [Protonix] 40 mg PO QAM #30 tab 04/23/19 04/29/19 04/28/19 cyclobenzaprine 10 mg tablet PO .TAKE 1 TABLET 3 TIME #21 tab 04/30/19 04/30/19 Unknown diazepam 2 mg tablet 4 PO .TAKE 4 TABLET Daily tab 04/30/19 04/30/19 Unknown naproxen 500 mg tablet PO .TAKE 1 TABLET BY TK #180 tab 04/30/19 04/30/19 Unknown prednisone 20 mg tablet 20 mg PO .TAKE 2 TABLET Daily #14 04/30/19 04/30/19 Unknown tab Active Medications Generic Name Dose Route Start Last Admin Trade Name Freq PRN Reason Stop Dose Admin Acetaminophen 650 mg 04/29/19 14:59 05/01/19 07:41 Tylenol PO 05/29/19 14:58 650 mg Q4H PRN Administration Moderate Pain Aspirin 81 mg 07/22/19 09:00 05/01/19 09:07 Ecotrin Ectab PO 05/30/19 08:59 81 mg QAM KENYA Administration Atorvastatin Calcium 80 mg 04/30/19 09:00 05/01/19 09:07 Lipitor PO 05/30/19 08:59 80 mg QAM KENYA Administration Bisacodyl 10 mg 04/30/19 16:59 05/01/19 05:36 Dulcolax IA 05/30/19 16:58 10 mg DAILY PRN Administration Constipation Clopidogrel Bisulfate 75 mg 04/30/19 09:00 05/01/19 09:07 Plavix PO 05/30/19 08:59 75 mg QAM KENYA Administration Docusate Sodium 100 mg 04/30/19 21:00 05/01/19 09:08 Colace PO 05/30/19 20:59 100 mg BID KENYA Administration Hydralazine HCl 5 mg 04/29/19 23:25 05/01/19 11:15 Hydralazine Hcl IV 05/29/19 23:24 5 mg Q4H PRN Administration Hypertension Piperacillin Sod/Tazobactam 115 mls @ 28.75 mls/hr 04/29/19 17:00 05/01/19 12:14 Sod 3.375 gm/ Dextrose IV 05/09/19 16:59 Infused Q8H KENYA Infusion Protocol Ioversol 94 ml 04/29/19 10:12 04/29/19 10:12 Optiray 320 100ml IV 05/03/19 10:11 94 ml ONCE PRN Administration Interaction Checking Metoprolol Succinate 25 mg 04/30/19 09:00 05/01/19 09:07 Toprol Xl PO 05/30/19 08:59 25 mg QAM KENYA Administration Morphine Sulfate 2 mg 04/29/19 14:59 05/01/19 11:15 Morphine Sulfate IV 05/13/19 14:58 2 mg Q2H PRN Administration Pain Ondansetron HCl 4 mg 04/29/19 14:59 05/01/19 07:50 Zofran IV 05/29/19 14:58 4 mg Q4H PRN Administration Nausea And Vomiting Pantoprazole Sodium 40 mg 04/30/19 09:00 05/01/19 07:39 Protonix PO 05/30/19 08:59 40 mg QAM KENYA Administration Polyethylene Glycol 17 gm 04/29/19 22:14 04/30/19 18:46 Miralax Powder Packet PO 05/29/19 22:13 17 gm DAILY PRN Administration Constipation Ranitidine HCl 150 mg 04/29/19 21:00 05/01/19 07:39 Zantac PO 05/29/19 20:59 150 mg BID KENYA Administration Simethicone 80 mg 04/30/19 09:05 04/30/19 09:32 Mylicon PO 05/30/19 09:04 80 mg Q6H PRN Administration bloating, gas NPO Date Last Intake of Fluids: 05/01/19 Time Last Intake of Fluids: 11:30 Date Last Intake of Solids: 04/28/19 Time Last Intake of Solids: 10:00 Past Medical History Medical History Tobacco abuse Alcohol use GERD (gastroesophageal reflux disease) Abdominal pain (Acute) Diverticulitis (Acute) Hyperlipidemia LDL goal <70 Coronary artery disease Non-ST elevation (NSTEMI) myocardial infarction (Acute) Hypertension Elevated troponin (Acute) Near syncope (Acute) Abdominal pain (Acute) Dizziness (Acute) Nausea, vomiting, and diarrhea (Acute) Vertigo (Acute) CAD (coronary artery disease) Exercise / Class Metabolic Activity III < 4 Walking/Shop/Light housework Past Family History Family History Other Coronary heart disease Past Surgical History Surgical History Hx of aortic valve replacement Hx of CABG History of back surgery (Chronic) History of arthroscopy of right knee History of neck surgery Past Anesthesia History No Hx of Anesthesia Complications and No Family Hx of Anesthesia Complications History of PONV No Hx of PONV and No Hx of Motion Sickness Social History Smoking Status: Current every day smoker tobacco type: cigarettes Smoking cigarettes per day: 6 Do You Dip or Chew Tobacco: No Hx Alcohol Use: Yes Alcohol type: beer alcohol intake frequency: 0-2 drinks per day Hx Substance Use: No substance use type: does not use Physical Exam Vital Signs Last Vital Signs Temp 98.6 F 05/01/19 10:38 Pulse 79 05/01/19 11:23 Resp 18 05/01/19 07:30 BP 187/93 H 05/01/19 11:23 Pulse Ox 93 05/01/19 10:38 ENMT Mouth: no dentition abnormality Thyromental Distance: > or= 3.5 Finger Breadths Mallampati Class: II Neck normal visual inspection Respiratory normal respiratory effort Auscultation: lungs clear to auscultation bilaterally Cardiovascular Rate/Rhythm: regular rate and regular rhythm Testing Laboratory Results 05/01/19 04:59 05/01/19 04:59 PT 11.4 Seconds (9.0-12.0) 04/29/19 10:30 INR 1.1 (0.9-1.1) 04/29/19 10:30 APTT 26.1 Seconds (21.0-31.0) 04/29/19 10:30 Urine Color Yellow 04/29/19 11:05 Urine Appearance Clear (Clear) 04/29/19 11:05 Urine pH 6.5 (4.5-7.5) 04/29/19 11:05 Ur Specific [place] > 1.045 (1.000-1.030) H 04/29/19 11:05 Urine Protein Negative (Negative) 04/29/19 11:05 Urine Glucose (UA) Negative (Negative) 04/29/19 11:05 Urine Ketones Negative (Negative) 04/29/19 11:05 Urine Nitrite Negative (Negative) 04/29/19 11:05 Ur Leukocyte Esterase Negative (Negative) 04/29/19 11:05 Electrocardiogram Date: 05/01/19 Sinus rhythm with Premature atrial complexes, rate 61 bpm T wave abnormality, consider lateral ischemia Abnormal ECG When compared with ECG of 29-APR-2019 09:24, Premature atrial complexes are now Present Chest X-Ray Date: 04/29/19 IMPRESSION: Pulmonary vascular congestion. Mild cardiomegaly. Echocardiogram Date: 04/22/19 EF: 55-60% LV Function: normal Other Findings: + LVH (mild) LA severely dilated Bioprosthetic aortic valve RVSP is elevated at 40-50mmHg
[2019-05-01] MEDS ORDERED: ONDANSETRON INJ 2 MG/ML 2 ML VIAL ONE (15:05)
[2019-05-01] MEDS ORDERED: PROPOFOL IV EMULSION 10 MG/ML 20 ML VIAL IV ONE (15:05)
[2019-05-01] MEDS ORDERED: LIDOCAINE HCL 2% 2 ML VIAL/AMP(20MG/ML) INFIL ONE (15:05)
--- NOTE | 2019-05-01 15:28 | GI REPORT ---
Patient Name: Waldemar Francis Procedure Date: 05/01/2019 3:08 PM Date of : 1940 Admit Type: Inpatient Age: 78 Gender: Male Attending MD: Modesto Whitfield DO Procedure: Upper GI endoscopy Providers: Modesto Whitfield DO Referring MD: Brendon Carrillo Indications: Unexplained chest pain Medicines: Monitored Anesthesia Care Complications: No immediate complications. Estimated blood loss: Minimal. Estimated Blood Loss: Estimated blood loss was minimal. Procedure: Pre-Anesthesia Assessment: - Prior to the procedure, a History and Physical was performed, and patient medications, allergies and sensitivities were reviewed. The patient's tolerance of previous anesthesia was reviewed. - The risks and benefits of the procedure and the sedation options and risks were discussed with the patient. All questions were answered and informed consent was obtained. - Patient identification and proposed procedure were verified prior to the procedure by the physician, the nurse and the chrome tanning drum operator. The procedure was verified in the procedure room. - Pre-procedure physical examination revealed no contraindications to sedation. - ASA Grade Assessment: IV - A patient with severe systemic disease that is a constant threat to life. - After reviewing the risks and benefits, the patient was deemed in satisfactory condition to undergo the procedure. - The anesthesia plan was to use monitored anesthesia care (MAC). - The anesthesia plan was to use monitored anesthesia care (MAC). - Immediately prior to administration of medications, the patient was re-assessed for adequacy to receive sedatives. - The heart rate, respiratory rate, oxygen saturations, blood pressure, adequacy of pulmonary ventilation, and response to care were monitored throughout the procedure. - The physical status of the patient was re-assessed after the procedure. After obtaining informed consent, the endoscope was passed under direct vision. Throughout the procedure, the patient's blood pressure, pulse, and oxygen saturations were monitored continuously. The Scope was introduced through the mouth, and advanced to the third part of duodenum. The upper GI endoscopy was accomplished without difficulty. The patient tolerated the procedure well. Findings: The examined esophagus was normal. The Z-line was regular and was found 41 cm from the incisors. The entire examined stomach was normal. The examined duodenum was normal. Impression: - Normal esophagus. - Z-line regular, 41 cm from the incisors. - Normal stomach. - Normal examined duodenum. - No specimens collected. Recommendation: - [facility]. - No upper endoscopic cause of patient's abdominal and chest pain. Modesto Whitfield D.O. Modesto Whitfield, 05/01/2019 3:28:16 PM This report has been signed electronically. Note Initiated On: 05/01/2019 3:08 PM Number of Addenda: 0 I attest to the content of the Intraoperative Record and orders documented therein, exceptions below {[id number]}
--- NOTE | 2019-05-01 15:55 | Anesthesiology Progress Note ---
Date of Service May 01, 2019 Anesthesia Post Procedure Vital Signs Vital Signs: Temp Pulse Resp BP BP Pulse Ox 05/01/19 15:43 63 18 138/76 97 05/01/19 15:27 72 18 101/55 L 95 05/01/19 11:23 79 187/93 H 05/01/19 11:22 53 L 171/80 H 05/01/19 11:21 62 167/85 H 05/01/19 10:38 37 C 65 180/91 H 93 05/01/19 07:30 36.5 C 71 18 157/90 H 94 05/01/19 01:21 158/66 H 05/01/19 00:00 60 189/103 H 04/30/19 23:25 36.6 C 58 L 18 194/90 H 94 04/30/19 23:00 36.7 C 54 L 18 216/104 H 94 04/30/19 19:57 55 L 164/86 H 04/30/19 15:56 36.8 C 53 L 18 180/86 H 97 Pain Intensity Abdomen: Pain Intensity: 7 Transfer of Care Handoff Completed per policy Notes Mental Status: alert / awake / arousable Patient Amnestic to Procedure: Yes Nausea / Vomiting: adequately controlled Pain: adequately controlled Airway Patency, RR, SpO2: stable & adequate BP & HR: stable & adequate Hydration State: stable & adequate Anesthetic Complications: no major complications apparent
[2019-05-01] MEDS: ACETAMINOPHEN 1,000 MG/100 ML VIAL IV PRN (18:24)
[2019-05-01] MEDS ORDERED: HYDROmorphone INJ 1 MG/ML SYRINGE IV PRN (19:21)
[2019-05-02] MEDS: ACETAMINOPHEN 325 MG TAB PO PRN (00:03)
[2019-05-02] MEDS: SIMETHICONE 80 MG CHEW PO PRN ×3 (00:17→19:39)
[2019-05-02] MEDS: ONDANSETRON INJ 2 MG/ML 2 ML VIAL IV PRN (00:21)
[2019-05-02] MEDS ORDERED: HALOPERIDOL LACTATE 5 MG/ML 1 ML VIAL IM PRN (02:33)
[2019-05-02] MEDS: MoRPHine SULFATE 2 MG/ML CARP IV PRN (03:50)
[2019-05-02 07:23] LABS: Hematocrit (blood only) 46.4 % (42-52); Hemoglobin 16.6 g/dL (14.0-18.0); Mean Corpuscular Hgb Conc 35.8 g/dL (32-36); Mean Corpuscular Volume 91.7 fL (80-100); Mean Platelet Volume 8.9 fL (7.4-10.4); Platelet Count 241 K/uL (130-400); RDW Standard Deviation 49.9 fL (36.4-46.3); Red Blood Count 5.06 M/uL (4.7-6.1); White Blood Count 9.42 K/uL (4.8-10.8)
[2019-05-02 07:56] LABS: Albumin Level 4.4 gm/dl (3.4-5.0); BUN Creatinine Ratio 12.2 (10-20); Calcium 9.2 mg/dl (8.5-10.1); Creatinine Clr Calc Pharmacy 65.3 ml/min; Est GFR (African American) 77.7; Est GFR (Non-African American) 67.1; Potassium 3.8 mmol/L (3.5-5.1)
[2019-05-02 07:59] LABS: Albumin Globulin Ratio 1.1 (0.9-2); Total Protein 8.4 gm/dl (6.4-8.2)
[2019-05-02] MEDS: PIPERACILLIN/TAZOBACTAM 3.375 GM in DEXTROSE 5% 100 ML IV SCH ×2 (09:02→16:46)
[2019-05-02] MEDS: METOPROLOL SUCC 25MG EXT REL TAB PO SCH (09:03)
[2019-05-02] MEDS: ASPIRIN 81 MG ECTAB PO SCH (09:03)
[2019-05-02] MEDS: CLOPIDOGREL BISULFATE 75 MG TAB PO SCH (09:04)
[2019-05-02] MEDS: ATORVASTATIN 40 MG TAB PO SCH (09:04)
[2019-05-02] MEDS: PANTOprazole 40 MG TAB PO SCH (09:04)
[2019-05-02] MEDS: DOCUSATE SODIUM 100 MG CAP PO SCH ×2 (09:04→20:50)
--- NOTE | 2019-05-02 10:24 | Anesthesiology Progress Note ---
Date of Service May 02, 2019 Anesthesia Post Procedure Vital Signs Vital Signs: Temp Pulse Resp BP BP Pulse Ox 05/02/19 07:40 36.6 C 61 18 189/89 H 95 05/02/19 00:01 188/86 H 05/01/19 23:23 36.4 C L 69 19 190/82 H 93 05/01/19 16:00 63 18 167/92 H 97 05/01/19 15:43 63 18 138/76 97 05/01/19 15:27 72 18 101/55 L 95 05/01/19 11:23 79 187/93 H 05/01/19 11:22 53 L 171/80 H 05/01/19 11:21 62 167/85 H 05/01/19 10:38 37 C 65 180/91 H 93 Notes Mental Status: alert / awake / arousable and participated in evaluation Nausea / Vomiting: adequately controlled Pain: adequately controlled Airway Patency, RR, SpO2: stable & adequate BP & HR: stable & adequate Hydration State: stable & adequate
[2019-05-02] MEDS: chlordiazePOXIDE HCl 25 MG CAP PO SCH ×2 (10:35→14:42)
--- NOTE | 2019-05-02 11:45 | Gastroenterology Progress Note ---
Date of Service May 02, 2019 Assessment & Plan (1) Abdominal pain: Diffuse, migratory abdominal pain. Likely, this is secondary to his diverticulitis though typically diverticular pain is more left lower quadrant. He seems to be slowly improving on antibiotics. Also considered is mesenteric ischemic disease. Will order mesenteric Doppler ultrasound to rule out. Continue antiemetics and analgesics. If worsens or does not continue to improve then will consider repeat CT abdomen of pelvis with IV and oral contrast in a few days. Supervising Physician Co-Signing Physician Notes I saw and evaluated the patient. He does report being slightly better today. Recommendations Continue with IV antibiotics Use Bentyl 10 mg 3 times daily Subjective Mr. Francis is a 78-year-old male who was admitted on 04/29 for diffuse abdominal pain. CT with IV, no oral contrast on arrival with mild sigmoid diverticulitis. EGD yesterday to rule out ulcer disease, gastritis was normal,. Today patient tells me he is 20% improved compared to time of arrival. However, diffuse periumbilical pain persists. Tolerating clear liquid diet but does not feel like he is ready to advance. Hemodynamically stable. WBC 9. LFTs and lipase normal. Passing gas but no bowel movement since arrival. Review of Systems Review of Systems: ROS: Gen: Denies weakness, fevers, weight loss Eyes: No eye redness, or pain, no recent vision changes Resp: No SOB, no cough Cardio: No palpitations/irregular beats, no chest pain GI:+ abdominal pain )see HPI), no nausea/vomiting : Denies pain on urination Skin: No jaundice, itching or new rashes Physical Exam Constitutional: WD/WN, vitals as above ENMT: external ear and nose normal, oropharynx normal Neck: trachea midline, no thyromegaly Respiratory: normal respiratory effort, lungs clear to auscultation Skin: no rashes, warm and dry Neurologic: PERRL, EOMI, accommodation nl, no face palsy, no dysarthria Lymphatic: no cervical or axillary lymphadenopathy Results & Data Vital Signs (Past 12 Hours) Vital Signs Temp Pulse Resp BP Pulse Ox 05/02/19 07:40 36.6 C 61 18 189/89 H 95 05/02/19 00:01 188/86 H (1) Abdominal pain Abdominal location: unspecified location Qualified Code(s): R10.9 - Unspecified abdominal pain
--- NOTE | 2019-05-02 14:29 | Ultrasound Report ---
US duplex mesenteric CLINICAL HISTORY: abdominal pain, r/o mesenteric ischemia COMPARISON STUDY: Abdomen and pelvis CT 04/29/2019. FINDINGS: The celiac artery measures a peak systolic velocity of 195 cm/s which is considered to be t he upper limits of normal. Normal velocities within the superior mesenteric artery of 134 cm/s and th e inferior mesenteric artery of 40 cm/s. There are also normal velocities within the hepatic and sple emelia arteries. No evidence for arterial occlusion. Right renal cyst is noted. IMPRESSION: No hemodynamically significant stenosis or occlusion within the mesenteric arteries. Electronically signed by: Duarte Kebede M.D. 05/02/2019 2:28 PM
[2019-05-02] MEDS ORDERED: OXYCODONE HCL IR 5 MG TAB (IMMEDIATE RELEASE) PO PRN (15:37)
[2019-05-02] MEDS: ACETAMINOPHEN 1,000 MG/100 ML VIAL IV PRN (15:41)
--- NOTE | 2019-05-02 15:45 | Hospitalist Progress Note ---
Date of Service May 02, 2019 Assessment & Plan (1) Abdominal pain: -initially admitting provider considered consulting GI for upper GI symptoms. -Last colonoscopy was over 10 years ago -CT abd/pelvis showing mild diverticulitis - no evidence of acute abdomen, no free air on KUB or obstruction - consulted GI - endoscopy 05/01 did not show any acute process - mesenteric doppler wnl -continue clear liquid diet for now - dc morphine, po 5 mg oxycodone q6h prn pain (2) GERD (gastroesophageal reflux disease): -Continue pantoprazole, ranitidine (3) Diverticulitis: -As noted above -continue Zosyn - clear liquids - no acute abdomen, leukocytosis, or fever (4) Coronary artery disease: - Continue ASA 81 mg QAM, Plavix 75 mg QAM, metoprolol succ 25 mg QAM - Followed with Dr. Rios for stent placed during last admission (5) Hx of CABG: (6) Non-ST elevation (NSTEMI) myocardial infarction: - Resolved, occurred on 02/15/2019 - s/p PCI to OM 2 and prior TORRES to LAD by Dr. Rios (7) Hypertension: - Continue metoprolol - hydralazine prn (8) Hx of aortic valve replacement: - Noted, stable (9) Elevated troponin: -Most recent admission was less than 1 week ago, patient denies any car diac complaints at this point time -Troponin on admission was negative, CK-MB = 3.7, possibly elevated s/p procedure which occurred approximately 1 week ago (10) Hyperlipidemia LDL goal <70: -Continue atorvastatin 80 mg QAM (11) Alcohol use: - Drinks approx 3 beers daily - Encouraged cessation - Pt reports limiting alcohol since having stent placed during last admission (12) Tobacco abuse: - Tobacco use for many years, smokes 1/2 ppd - Order nicotine patch - Cessation encouraged. (13) Obesity (BMI 30.0-34.9): - BMI of 33.5, diet and exercise to be encouraged throughout hospital stay as well as upon discharge. (14) Lesion of adrenal gland: 2.1 cm adrenal gland lesion found on gallbladder US Follow up outpatient (15) Hepatic steatosis: Seen on gallbladder US Alcohol cessation and dietary modification counseling (16) DVT prophylaxis: -teds, encourage ambulation Subjective Mr. Francis continues to have quite a bit of abdominal pain. He did have an episode of confusion last night but is alert and oriented today. No nauseas or vomiting. He has still not had a bowel movement. His blood pressure has been somewhat elevated and he is anxious but his last drink was a week and a half ago so I doubt this is alcohol detox. Review of Systems Review of Systems: All systems reviewed & are unremarkable except as noted in HPI & below Results & Data Vital Signs (Past 12 Hours) Vital Signs Temp Pulse Resp BP Pulse Ox 05/02/19 07:40 36.6 C 61 18 189/89 H 95 PG Care Time/CCT Total # of Minutes Spent Total Time Spent with Patient: Total time spent is greater than 50% in coordination of care (as documented) at patient's floor/unit and/or counseling patient: (1) Abdominal pain Abdominal location: unspecified location Qualified Code(s): R10.9 - Unspecified abdominal pain (2) Hypertension Hypertension type: essential hypertension Qualified Code(s): I10 - Essential (primary) hypertension
[2019-05-02] MEDS ORDERED: HydrALAZINE HCL 20 MG/ML VIAL IV PRN (15:56)
[2019-05-02] MEDS: DICYCLOMINE HCL 10 MG CAP PO SCH ×2 (16:30→20:50)
[2019-05-02] MEDS: POLYETHYLENE (MIRALAX) 17 GM PACK PO SCH (16:32)
[2019-05-02] MEDS ORDERED: DOCUSATE SODIUM 100 MG CAP PO SCH (21:00)
[2019-05-02] MEDS ORDERED: OXYCODONE HCL IR 5 MG TAB (IMMEDIATE RELEASE) PO STA (21:44)
[2019-05-03] MEDS: PIPERACILLIN/TAZOBACTAM 3.375 GM in DEXTROSE 5% 100 ML IV SCH ×3 (01:40→16:21)
[2019-05-03] MEDS: ACETAMINOPHEN 325 MG TAB PO PRN (02:50)
[2019-05-03] MEDS: OXYCODONE HCL IR 5 MG TAB (IMMEDIATE RELEASE) PO PRN ×4 (04:38→20:15)
[2019-05-03] MEDS: PANTOprazole 40 MG TAB PO SCH (07:38)
[2019-05-03] MEDS: DICYCLOMINE HCL 10 MG CAP PO SCH ×4 (07:38→20:16)
[2019-05-03] MEDS ORDERED: BISACODYL 10 MG SUPP PR ONE (07:58)
[2019-05-03] MEDS: DOCUSATE SODIUM 100 MG CAP PO SCH ×2 (08:14→20:15)
[2019-05-03] MEDS: CLOPIDOGREL BISULFATE 75 MG TAB PO SCH (08:14)
[2019-05-03] MEDS: METOPROLOL SUCC 25MG EXT REL TAB PO SCH (08:14)
[2019-05-03] MEDS: ASPIRIN 81 MG ECTAB PO SCH (08:14)
[2019-05-03] MEDS: ATORVASTATIN 40 MG TAB PO SCH (08:14)
[2019-05-03] MEDS: POLYETHYLENE (MIRALAX) 17 GM PACK PO SCH (08:15)
[2019-05-03 08:38] LABS: Hemoglobin 17.9 g/dL (14.0-18.0); Mean Corpuscular Hgb Conc 35.8 g/dL (32-36); Mean Corpuscular Volume 91.9 fL (80-100); Mean Platelet Volume 9.2 fL (7.4-10.4); Platelet Count 272 K/uL (130-400); RDW Coefficient of Variation 15.1 % (11.5-14.5); Red Blood Count 5.44 M/uL (4.7-6.1); White Blood Count 11.13 K/uL (4.8-10.8)
[2019-05-03 09:07] LABS: Calcium 9.3 mg/dl (8.5-10.1); Creatinine Clr Calc Pharmacy 64.1 ml/min; Est GFR (Non-African American) 65.6
[2019-05-03] MEDS ORDERED: IOVERSOL 100ml IV PRN (12:59)
--- NOTE | 2019-05-03 13:40 | CT Scan Report ---
ABDOMEN AND PELVIS CT WITH IV AND ORAL CONTRAST CT DOSE: 678.87 mGy.cm HISTORY: Acute mid to lower abdominal pain with abdominal bloating abdominal pain TECHNIQUE: Multiaxial CT images of the abdomen and pelvis were performed following the use of intrave nous and oral contrast. A dose lowering technique was utilized adhering to the principles of ALARA. COMPARISON STUDY: CT abdomen and pelvis 04/29/2019. FINDINGS: Lung bases are generally clear. No pneumatosis or pneumoperitoneum. The imaged inferior cardiac chamb ers are mildly enlarged. Partially imaged prosthetic aortic valve. Coronary arterial calcifications a re noted. Prior median sternotomy. No pericardial effusion. Nonspecific mild gallbladder wall prominence. No pericholecystic stranding, cholelithiasis or biliary ductal dilation identified. Spleen, pancreas, liver and left adrenal gland are unremarkable. Patency of the hepatic and portal veins. Indeterminate soft tissue attenuating 2.4 x 2.1 cm adrenal lesion. Bilateral renal cysts redemonstrated measuring up to 3.9 cm on the right. No renal or ureteral calcul i or obstructive uropathy. Mild nonspecific urinary bladder wall thickening. Prostamegaly. Mixed plaq ue formation about the abdominal aorta. Infrarenal abdominal aortic ectasia, 2.7 x 2.4 cm. Nonspecifi c mildly prominent precaval lymph nodes measure up to 10 mm. No bowel obstruction. Normal appendix. Colonic diverticulosis without evidence of acute diverticuliti s. Scattered air-fluid levels are noted throughout the colon. There is no significant bowel wall thic kening identified. Soft tissues are unremarkable. Spondylitic spurring and facet arthrosis. Discectom y changes at L4-L5 with laminectomy, posterior interbody meggan and screw fusion. IMPRESSION: 1. No bowel obstruction or definite bowel wall thickening identified. 2. Colonic diverticulosis without acute diverticulitis. 3. Air-fluid levels throughout the large bowel are suggestive of diarrheal illness. 4. Prostamegaly with mild nonspecific urinary bladder wall thickening. Correlate with urinalysis. 5. Normal appendix. 6. Additional findings as above. Electronically signed by: Saman Fuentes M.D. 05/03/2019 1:39 PM
[2019-05-03] MEDS: SIMETHICONE 80 MG CHEW PO PRN (13:57)
[2019-05-03] MEDS: ACETAMINOPHEN 1,000 MG/100 ML VIAL IV PRN (13:59)
--- NOTE | 2019-05-03 14:41 | Gastroenterology Progress Note ---
Date of Service May 03, 2019 Assessment & Plan (1) Abdominal pain: Unsure of the etiology of this patient's abdominal pain, ?diverticulitis - but not confirmed on Ct done today. ? constipation, narcotic ileus Though some risk factors for mesenteric ischemia, no findings on Doppler US or today's Ct to support this. Will consult Gen surgery. Present on Admission?: Yes Supervising Physician Co-Signing Physician Notes I saw and evaluated the patient. He does report being slightly better today. Recommendations Continue with IV antibiotics Use Bentyl 10 mg 3 times daily Subjective Mr. Francis is a 78-year-old male who was admitted on 04/29 for diffuse abdominal pain. CT with IV, no oral contrast on arrival with mild sigmoid diverticulitis. EGD ruled out ulcer disease and gastritis. Repeat imaging today: Ct with IV and oral contrast without obstruction and without evidence of diverticulitits. Pt "much worse today," He c/o left mid and periumbilical pain. Abd distended. Review of Systems Review of Systems: ROS: Gen: Denies weakness, fevers, weight loss Eyes: No eye redness, or pain, no recent vision changes Resp: No SOB, no cough Cardio: No palpitations/irregular beats, no chest pain GI:+ abdominal pain )see HPI), no nausea/vomiting : Denies pain on urination Skin: No jaundice, itching or new rashes Constitutional: + body aches (some mild aches in the upper legs); no fever, no chills and no weakness Ear, Nose, Mouth, Throat: no ear pain, no tinnitus, no dizziness (and lightheaded since a few days ago; occurs briefly with standing) and no pain with swallowing Gastrointestinal: + abdominal pain, + bloating (intermittent) and + nausea Endocrine: + fatigue (because not sleeping due to pain); no polydipsia, no polyphagia and no polyuria Physical Exam Constitutional: WD/WN, vitals as above ENMT: external ear and nose normal, oropharynx normal Neck: trachea midline, no thyromegaly Respiratory: normal respiratory effort, lungs clear to auscultation Gastrointestinal (Abdomen): Inspection/Auscultation: + abdomen distended Percussion/Palpation: + abdomen tender (very tender over left mid abdomen and periumbilical area) BS hypoactive Skin: no rashes, warm and dry Neurologic: PERRL, EOMI, accommodation nl, no face palsy, no dysarthria Lymphatic: no cervical or axillary lymphadenopathy (1) Abdominal pain Abdominal location: unspecified location Qualified Code(s): R10.9 - Unspecified abdominal pain
[2019-05-03 14:56] LABS: Appearance Urine Clear (Clear); Bacteria Urine Automated Negative (Negative); Bilirubin Urine Negative (Negative); Blood Urine 1+ (Negative); Color Urine Yellow; Epithelial Cell Urine Auto 20-30 /lpf (0-5); Glucose Urine UA 2+ (Negative); Ketones Urine Negative (Negative); Leukocyte Esterase Urine Negative (Negative); Nitrite Urine Negative (Negative); Protein Urine Negative (Negative); Specific Gravity Urine > 1.045 (1.000-1.030); Urobilinogen Urine Negative (Negative)
--- NOTE | 2019-05-03 15:13 | Gastroenterology Progress Note ---
Date of Service May 03, 2019 Assessment & Plan (1) Abdominal pain: Unsure of the etiology of this patient's abdominal pain, ?diverticulitis - but not confirmed on Ct done today. ? constipation, narcotic ileus Though some risk factors for mesenteric ischemia, no findings on Doppler US or today's Ct to support this. Imaging and labs w/o evidence of gallbladder disease or CBD abnormalities. Will order one dose of Relistor. Ordered surgical consult but talked with surgery and because CT without surgical issues, will cancel. Discussed with primary hospitalist who will consider cardiac and causes of pain. Supervising Physician Co-Signing Physician Notes Patient with worsening discomfort today. His CT does show evidence of fluid in the colon, perhaps he has an ileus as a result of the narcotic use. Recommendations -Daily labs to include CBC and CMP -Consider use of a dose of Relistor today -Consider and EKG as abdominal pain could be caused by an underlying cardiac issue -Continue with broad-spectrum antibiotics -Should symptoms worsen would suggest a surgical consult (please note we did place a consult today however they did not they need to be involved with the patient at this time given the present CT scan) Subjective Mr. Francis is a 78 yr old male admitted on 04/29 with abdominal pain. Non con CT with mild sigmoid diverticulitis on arrival but repeat CT today with IV and po contrast w/o diverticulitis but with mild colon ileus. Pt's pain was better yesterday but increased abdominal pain again today. Pain more left abd than right but very diffuse. WBC 11, Hb 17, Hct 50. LFTs and lipase normal on 04/29 Bile ducts normal on US on CT 04/29 and 25, US on . VDUS w/o evidence of mesenteric ischemia. Review of Systems Constitutional: no fever and no sweats Eyes: no eye pain and no problem reported Ear, Nose, Mouth, Throat: no ear pain, no tinnitus and no dizziness Respiratory: no cough, no dyspnea and no wheezing Cardiovascular: no chest pain, no syncope and no edema Gastrointestinal: as per Subjective / HPI Genitourinary: no dysuria Integumentary: no rash and no lesions Neurologic: no gait abnormality, no unsteadiness and no falls Psychiatric: no problem reported Hematologic / Lymphatic: no easy bleeding, no easy bruising and no lymphadenopathy Physical Exam Constitutional: WD/WN, vitals as above appears acutely uncomfortable but still able to ambulate to BR etc. Eyes: PERRL, conjunctivae normal, anicteric sclerae ENMT: external ear and nose normal, oropharynx normal Neck: trachea midline, no thyromegaly Respiratory: normal respiratory effort, lungs clear to auscultation Cardiovascular: RRR, no murmur, no edema Gastrointestinal (Abdomen): Abd mildly distended, normoactive BS, diffusely tender, worse in the left mid abdomen compared to elsewhere. Musculoskeletal: no cyanosis or clubbing, extremities motor strength 5/5 Skin: no rashes, warm and dry no jaundice Neurologic: PERRL, EOMI, accommodation nl, no face palsy, no dysarthria Psychiatric: A+Ox3, euthymic affect Mood: + anxious mood (from pain) Lymphatic: no cervical or axillary lymphadenopathy Results & Data Laboratory Results See HPI Diagnostic Findings See HPI (1) Abdominal pain Abdominal location: unspecified location Qualified Code(s): R10.9 - Unspecified abdominal pain
[2019-05-03] MEDS ORDERED: METHYLNALTREXONE BROMIDE 12 MG/0.6 ML VIAL SQ ONE (16:00)
--- NOTE | 2019-05-03 17:21 | Hospitalist Progress Note ---
Date of Service May 03, 2019 Assessment & Plan (1) Abdominal pain: -initially admitting provider considered consulting GI for upper GI symptoms. -Last colonoscopy was over 10 years ago -CT abd/pelvis showing mild diverticulitis - no evidence of acute abdomen, no free air on KUB or obstruction - consulted GI - endoscopy 05/01 did not show any acute process - mesenteric doppler wnl -continue clear liquid diet for now - dc morphine, po 5 mg oxycodone q6h prn pain, scheduled Tylenol - repeated CT - no acute process - consult pain management - per GI, does appear to have opioid ileus and was given Relistor - Patient was straight cathed with 450 retained - PSA was 112 - will give espinoza sulosin, Tidwell catheter and see if it's possible the urinary retention is factoring into his pain. Patient did have and elevated PSA in 2014 but per outpatient notes did not want further workup (2) GERD (gastroesophageal reflux disease): -Continue pantoprazole, ranitidine (3) Diverticulitis: -As noted above -continue Zosyn - clear liquids - no acute abdomen, leukocytosis, or fever (4) Coronary artery disease: - Continue ASA 81 mg QAM, Plavix 75 mg QAM, metoprolol succ 25 mg QAM - Followed with Dr. Rios for stent placed during last admission (5) Hx of CABG: (6) Non-ST elevation (NSTEMI) myocardial infarction: - Resolved, occurred on 02/15/2019 - s/p PCI to OM 2 and prior TORRES to LAD by Dr. Rios - trop 05/03 wnl (7) Hypertension: - Continue metoprolol - hydralazine prn (8) Hx of aortic valve replacement: - Noted, stable (9) Elevated troponin: -Most recent admission was less than 1 week ago, patient denies any cardiac complaints at this point -Troponin on admission was negative, repeat 05/03 was wnl (10) Hyperlipidemia LDL goal <70: -Continue atorvastatin 80 mg QAM (11) Alcohol use: - Drinks approx 3 beers daily - has not had any alcohol for at least a week and a half - Encouraged cessation (12) Tobacco abuse: - Tobacco use for many years, smokes 1/2 ppd - Order nicotine patch - Cessation encouraged. (13) Obesity (BMI 30.0-34.9): - BMI of 33.5, diet and exercise to be encouraged throughout hospital stay as well as upon discharge. (14) Lesion of adrenal gland: 2.1 cm adrenal gland lesion found on gallbladder US Follow up outpatient (15) Hepatic steatosis: Seen on gallbladder US Alcohol cessation and dietary modification counseling (16) DVT prophylaxis: -teds, encourage ambulation Subjective Mr. Francis continues to complain of abdominal pain 8/10 around his central belly. No nausea, did have a bowel movement today. Review of Systems Review of Systems: All systems reviewed & are unremarkable except as noted in HPI & below Physical Exam Physical Exam: General: no distress Eyes: normal inspection, PERLL Respiratory: chest non tender, clear to auscultation, normal breath sounds, no respiratory distress, no accessory muscle use Cardiac: regular rate and rhythm, no rub or gallop, no murmur, no edema, no jvd GI/: active bowel sounds, no abd pain or tenderness, soft, non distended Extremities: normal range of motion, normal strength, non tender Neuro/Psych: alert and oriented x 3, normal mood and affect Skin: normal color, dry Results & Data Vital Signs (Past 12 Hours) Vital Signs Temp Pulse Resp BP Pulse Ox 05/03/19 15:38 36.5 C 73 18 137/80 98 PG Care Time/CCT Total # of Minutes Spent Total Time Spent with Patient: Total time spent is greater than 50% in coordination of care (as documented) at patient's floor/unit and/or counseling patient: (1) Abdominal pain Abdominal location: unspecified location Qualified Code(s): R10.9 - Unspecified abdominal pain (2) Hypertension Hypertension type: essential hypertension Qualified Code(s): I10 - Essential (primary) hypertension
[2019-05-03 17:25] LABS: Troponin I 0.016 ng/ml (0-0.045)
[2019-05-03] MEDS ORDERED: OLANZAPINE 2.5 MG TAB PO ONE (20:26)
[2019-05-03] MEDS ORDERED: TAMSULOSIN HCL 0.4 MG CAP PO SCH (21:00)
[2019-05-03] MEDS: ACETAMINOPHEN 500 MG TAB PO SCH (21:35)
[2019-05-04] MEDS: PIPERACILLIN/TAZOBACTAM 3.375 GM in DEXTROSE 5% 100 ML IV SCH ×2 (01:34→09:01)
[2019-05-04] MEDS: ACETAMINOPHEN 500 MG TAB PO SCH ×3 (05:39→22:10)
--- NOTE | 2019-05-04 08:49 | Pain Management Consultation ---
Date of Consultation May 04, 2019 Assessment & Plan (1) GERD (gastroesophageal reflux disease): (2) Diverticulitis: (3) Abdominal pain: Patient is lethargic when I visited his room but does not appear confused. He states that his pain is well controlled today and denies any complaints. I would not recommend any changes. Continue Tylenol and Oxycodone. Miralax if needed for constipation and Relistor if Miralax is not effective. Thank you for the consultation. Abdominal location: unspecified location Qualified Code(s): R10.9 - Unspecified abdominal pain History of Present Illness Attending Physician: Brendon Carrillo MD History of Present Illness Mr. Francis is a 78 year old white male that has been admitted to the [facility] for abdominal pain. Symptoms did appear to be related to GERD and CT scan shows diverticulitis. Patient is no longer on IV Morphine due to confusion and constipation. He is currently taking Oxycodone 5mg x 6 hours PRN pain. Patient states that his pain is well controlled this morning and denies any complaints. He was experiencing constipation for several days and single dose of Relistor did provide a bowel movement. He is passing gas without problem and nausea has improved. He rates his pain 3/10 currently. No constitutional complaints. Case discussed with Dr. Escamilla Pain Assessment [facility] Combined Pain Scale: 3-Mild - Interferes with pleasures of life. Stops some activities Pain scale - at its best (0-10): 0 Pain scale - at its worst (0-10): 7 Allergies Allergy/AdvReac Type Severity Reaction Status Date / Time codeine Allergy Unknown "EYES GO Verified 04/29/19 09:32 SHUT AND HEAD SWELLS" zolpidem [From Ambien] Allergy Unverified 04/30/19 15:13 Home Medications Home Medications Medication Instructions Recorded Confirmed Type aspirin [Ecotrin Low Strength] 81 mg PO QAM #1 tab 02/17/19 04/29/19 Rx atorvastatin 80 mg PO QAM #60 tab 02/17/19 04/29/19 Rx clopidogrel 75 mg PO QAM #30 tab 02/17/19 04/29/19 Rx metoprolol succinate 25 mg PO QAM #30 tab 02/17/19 04/29/19 Rx nitroglycerin [Nitrostat] 0.4 mg SUBLINGUAL UD PRN #1 btl 04/23/19 04/29/19 Rx pantoprazole [Protonix] 40 mg PO QAM #30 tab 04/23/19 04/29/19 Rx cyclobenzaprine 10 mg tablet PO .TAKE 1 TABLET 3 TIME #21 tab 04/30/19 04/30/19 History diazepam 2 mg tablet 4 PO .TAKE 4 TABLET Daily tab 04/30/19 04/30/19 History naproxen 500 mg tablet PO .TAKE 1 TABLET BY TK #180 tab 04/30/19 04/30/19 History prednisone 20 mg tablet 20 mg PO .TAKE 2 TABLET Daily #14 04/30/19 04/30/19 History tab Pain History Pain Intensity Pain scale - at its best (0-10): 0 Pain scale - at its worst (0-10): 7 Patient History Medical History Tobacco abuse Alcohol use GERD (gastroesophageal reflux disease) Abdominal pain (Acute) Diverticulitis (Acute) Hyperlipidemia LDL goal <70 Coronary artery disease Non-ST elevation (NSTEMI) myocardial infarction (Acute) Hypertension Elevated troponin (Acute) Near syncope (Acute) Abdominal pain (Acute) Dizziness (Acute) Nausea, vomiting, and diarrhea (Acute) Vertigo (Acute) CAD (coronary artery disease) Surgical History Hx of aortic valve replacement Hx of CABG History of back surgery (Chronic) History of arthroscopy of right knee History of neck surgery Family History Other Coronary heart disease Social History Preferred Language: Indonesian Communication Ability: Effective End Frazer Required: No Beliefs That Will Affect Care: None marital status: Current Living Situation: Spouse Other Information That Helps Us Care for You: No Feels Safe at Home: Yes Safety Concerns: Feels Safe At This Time Smoking Status: Current every day smoker Tobacco Type: cigarettes Cigarettes Per Day: 6 Do You Dip or Chew Tobacco: No Second Hand Exposure: No Tobacco Cessation Education Requested by Patient: No Hx Alcohol Use: Yes Alcohol type: beer Alcohol Intake Frequency: Daily Hx Substance Use: No Physical Exam Physical Exam: GENERAL: Mr. Francis is a 78 year old white male that is sleeping in the hospital bed. He is arousable but does continue to fall back asleep when trying to have a conversation with him. He is answering questions appropriately and does not seem confused. He does not appear in any acute distress. HEAD: Normocephalic; atraumatic. EYES: Pupils are round, equal, and reactive to light; EOM intact. ENT: No external ear discharge or lesions. No rhinorrhea or epistaxis. No mucosal lesions. CHEST: Regular chest respiration and excursion. ABDOMEN: Unable to assess as the patient continues to fall back asleep. NEURO: CN II-XII grossly intact with no focal deficits noted. SKIN: No lesions, erythema, or rashes noted.
[2019-05-04 08:58] LABS: Hematocrit (blood only) 43.8 % (42-52); Hemoglobin 15.6 g/dL (14.0-18.0); Mean Corpuscular Hgb Conc 35.6 g/dL (32-36); Mean Corpuscular Volume 90.1 fL (80-100); Mean Platelet Volume 8.9 fL (7.4-10.4); Platelet Count 223 K/uL (130-400); RDW Coefficient of Variation 15.2 % (11.5-14.5); RDW Standard Deviation 50.2 fL (36.4-46.3); Red Blood Count 4.86 M/uL (4.7-6.1); White Blood Count 11.62 K/uL (4.8-10.8)
[2019-05-04] MEDS: DOCUSATE SODIUM 100 MG CAP PO SCH ×2 (09:03→20:08)
[2019-05-04] MEDS: ASPIRIN 81 MG ECTAB PO SCH (09:03)
[2019-05-04] MEDS: CLOPIDOGREL BISULFATE 75 MG TAB PO SCH (09:03)
[2019-05-04] MEDS: ATORVASTATIN 40 MG TAB PO SCH (09:03)
[2019-05-04] MEDS: METOPROLOL SUCC 25MG EXT REL TAB PO SCH (09:03)
[2019-05-04] MEDS: PANTOprazole 40 MG TAB PO SCH (09:03)
[2019-05-04] MEDS: DICYCLOMINE HCL 10 MG CAP PO SCH ×2 (09:04→13:04)
[2019-05-04] MEDS: POLYETHYLENE (MIRALAX) 17 GM PACK PO SCH (09:04)
[2019-05-04 09:32] LABS: Albumin Level 3.8 gm/dl (3.4-5.0); BUN Creatinine Ratio 15.7 (10-20); Bilirubin Direct 0.3 mg/dl (0-0.2); Calcium 8.9 mg/dl (8.5-10.1); Creatinine Clr Calc Pharmacy 59.2 ml/min; Est GFR (African American) 69.1; Est GFR (Non-African American) 59.6; Potassium 3.4 mmol/L (3.5-5.1)
[2019-05-04 09:42] LABS: Bilirubin,Total 1.1 mg/dl (0.2-1)
--- NOTE | 2019-05-04 12:00 | Gastroenterology Progress Note ---
Date of Service May 04, 2019 Assessment & Plan (1) Abdominal pain: Unsure of the etiology of this patient's abdominal pain, ? pancreatis, though lipase of 514 does not meet criteria for pancreatitis (normal up to 393 and 514 is not 3x upper limit of normal) but imaging does not suggest pancreatitis and serum lipase was normal on arrival and pain was his presenting complaint. ?diverticulitis - but not confirmed on Ct done today. ? constipation, narcotic ileus - seemed to improve after one dose of Relistor. ? mesenteric ischemia as has risk factors but no findings on Doppler US or CT to support. Imaging and labs w/o evidence of gallbladder disease or CBD abnormalities. Discussed with primary hospitalist who thought possibly secondary to urinary retention. Will stop dicyclomine as may cause urinary retention. Would continue to observe. Please check LFT, lipase tomorrow. If does well and is discharged then would recommend: 1. OP colonoscopy to f/u suggestion of diverticulitis on initial CT 2. EUS for elevated lipase. Present on Admission?: Yes Supervising Physician Co-Signing Physician Notes I saw and evaluated the patient. I wonder if the urinary retention is related to the antispasmodic and perhaps the pain analgesia. His abdominal pain is much improved today and it appears that the diverticulitis is improving. Recommendations Discontinue Bentyl Continue with IV antibiotic coverage Please call with any additional questions or concerns Subjective Mr. Francis is a 78 yr old male admitted on 04/29 with abdominal pain. Non con CT with mild sigmoid diverticulitis on arrival but repeat CT yesterday with IV and po contrast w/o diverticulitis but with mild colon ileus. Today pt is sleepy but when awakened is oriented and denies abdominal pain on palpation of the abdomen today. WBC 11, Hb 15, Hct 43. LFT: T bili 11, D bili 0.3, AST 14, Alt 28, Alk Phos 65, lipase 514 (was normal on 04/22 and 04/29). VDUS w/o evidence of mesenteric ischemia. Review of Systems Review of Systems: ROS: Gen: Sleepy, fevers, weight loss Eyes: No eye redness, or pain, no recent vision changes Resp: No SOB, no cough Cardio: No palpitations/irregular beats, no chest pain GI: Denies abdominal pain today, no nausea/vomiting : Denies pain on urination Skin: No jaundice, itching or new rashes Physical Exam Constitutional: WD/WN, vitals as above + lethargic Eyes: PERRL, conjunctivae normal, anicteric sclerae ENMT: external ear and nose normal, oropharynx normal Neck: trachea midline, no thyromegaly Respiratory: normal respiratory effort, lungs clear to auscultation Cardiovascular: RRR, no murmur, no edema Gastrointestinal (Abdomen): Percussion/Palpation: abdomen soft; abdomen nontender Normal BS, not distended Musculoskeletal: no cyanosis or clubbing, extremities motor strength 5/5 Skin: no rashes, warm and dry no jaundice Neurologic: PERRL, EOMI, accommodation nl, no face palsy, no dysarthria Psychiatric: A+Ox3, euthymic affect Mood: + anxious mood (from pain) Lymphatic: no cervical or axillary lymphadenopathy Results & Data Vital Signs (Past 12 Hours) Vital Signs Temp Pulse Pulse Resp BP BP BP 05/04/19 11:43 67 67 91/54 L 79/47 L 05/04/19 07:30 36.7 C 92 H 16 112/67 Pulse Ox 05/04/19 11:43 99 05/04/19 07:30 99 (1) Abdominal pain Abdominal location: unspecified location Qualified Code(s): R10.9 - Unspecified abdominal pain
[2019-05-04] MEDS ORDERED: SODIUM CHLORIDE 0.9% 1000ML 1,000 ML IV SCH ×2 (12:45→13:16)
[2019-05-04 13:53] LABS: Magnesium 2.5 mg/dl (1.8-2.4); Troponin I 0.019 ng/ml (0-0.045)
[2019-05-04] MEDS ORDERED: diazePAM 2 MG TABLET PO PRN (14:16)
[2019-05-04] MEDS: FINASTERIDE 5 MG TAB PO SCH (15:10)
--- NOTE | 2019-05-04 16:21 | Hospitalist Progress Note ---
Date of Service May 04, 2019 Assessment & Plan (1) Abdominal pain: -Last colonoscopy was over 10 years ago -CT abd/pelvis showing mild diverticulitis on admission - no evidence of acute abdomen, no free air on KUB or obstruction - consulted GI - endoscopy 05/01 did not show any acute process - mesenteric doppler wnl - continue po 5 mg oxycodone q6h prn pain, scheduled Tylenol - repeated CT - Air-fluid levels throughout the large bowel are suggestive of diarrheal illness, Prostatomegaly with mild nonspecific urinary bladder wall thickening. Correlate with urinalysis. - consult pain management - per GI, did appear to have opioid ileus and was given Relistor - Patient was straight cathed with 450 retained 05/03- PSA was 112 - given tamsulosin, Ya catheter with resolution of abdominal pain. U/A with RBCs - per nursing report traumatic ya insertion. Urine culture pending. Urology consulted - discontinued tamsulosin as below and started finasteride (2) Hypotension: possibly secondary to tamsulosin administration NSS bolus and then nss @ 125 ml/hr (3) Atrial fib/flutter, transient: found on the morning of 05/04 - spontaneously converted in the afternoon. Cardiology consulted - Dr. Rios recommending holding off on anticoagulation for now. (4) GERD (gastroesophageal reflux disease): -Continue pantoprazole, ranitidine (5) Diverticulitis: -As noted above - dc zosyn and start po cipro/flagyl - clear liquids - no acute abdomen, leukocytosis, or fever (6) Coronary artery disease: - Continue ASA 81 mg QAM, Plavix 75 mg QAM, metoprolol succ 25 mg QAM - Followed with Dr. Rios for stent placed during last admission (7) Hx of CABG: (8) Non-ST elevation (NSTEMI) myocardial infarction: - Resolved, occurred on 02/15/2019 - s/p PCI to OM 2 and [facility] (9) Hypertension: - Continue metoprolol - hydralazine prn (10) Hx of aortic valve replacement: - Noted, stable (11) Hyperlipidemia LDL goal <70: -Continue atorvastatin 80 mg QAM (12) Alcohol use: - Drinks approx 3 beers daily - has not had any alcohol for at least a week and a half - Encouraged cessation (13) Tobacco abuse: - Tobacco use for many years, smokes 1/2 ppd - Order nicotine patch - Cessation encouraged. (14) Obesity (BMI 30.0-34.9): - BMI of 33.5, diet and exercise counseling (15) Lesion of adrenal gland: 2.1 cm adrenal gland lesion found on gallbladder US Follow up outpatient (16) Hepatic steatosis: Seen on gallbladder US Alcohol cessation and dietary modification counseling (17) DVT prophylaxis: -teds, encourage ambulation Subjective Mr. Francis was very drowsy this morning but pain free. Later in the morning he became hypotensive. Nursing performed an EKG and he was found to be in A.fib/flutter that was rate controlled in the s. He denied any chest pain or palpitations. He was transferred to PCU where he subsequently converted to a SR spontaneously. He continues to be hypotensive but is mentating appropriately Review of Systems Review of Systems: All systems reviewed & are unremarkable except as noted in HPI & below Physical Exam Physical Exam: General: no distress Eyes: normal inspection, PERLL Respiratory: chest non tender, clear to auscultation, normal breath sounds, no respiratory distress, no accessory muscle use Cardiac: irregular rate and rhythm, no rub or gallop, no murmur, no edema, no jvd GI/: active bowel sounds, no abd pain or tenderness, soft, non distended Extremities: normal range of motion, normal strength, non tender Neuro/Psych: alert and oriented x 3, normal mood and affect Skin: normal color, dry Results & Data Vital Signs (Past 12 Hours) Vital Signs Temp Pulse Pulse Resp BP BP BP 05/04/19 14:36 37.0 C 61 18 78/37 L 05/04/19 12:59 36.5 C 80 19 97/55 L 05/04/19 11:43 67 67 91/54 L 79/47 L 05/04/19 07:30 36.7 C 92 H 16 112/67 Pulse Ox 05/04/19 14:36 96 05/04/19 12:59 95 05/04/19 11:43 99 05/04/19 07:30 99 PG Care Time/CCT Total # of Minutes Spent Total Time Spent with Patient: Total time spent is greater than 50% in coordination of care (as documented) at patient's floor/unit and/or counseling patient: (1) Abdominal pain Abdominal location: unspecified location Qualified Code(s): R10.9 - Unspecified abdominal pain (2) Hypertension Hypertension type: essential hypertension Qualified Code(s): I10 - Essential (primary) hypertension
--- NOTE | 2019-05-04 16:37 | Cardiology Consultation ---
Date of Consultation May 04, 2019 Assessment & Plan (1) Atrial fib/flutter, transient: 2. Coronary artery disease post single-vessel CABG with TORRES to LAD 2009, MIKE to OM2 02/2019 3. History of bioprosthetic AVR 4. Transient hypotension 5. Abdominal pain 6. Urinary retention Patient with transient atrial flutter this afternoon with heart rates in the 70s to 80s. This occurred in the setting of issues with abdominal pain, urinary retention and hypotension. Do not feel rate-controlled atrial flutter likely cause of patient's hypotension. Afluter more likely secondary to stress of acute illness but suspect patient at risk for recurrence in the future. We discussed risk, benefits of anticoagulation going forward. Feel patient's cardioembolic risk elevated and would favor anticoagulation long-term. Going forward: Recommend starting NOAC (eliquis if feasible with insurance) if no additional procedures planned When starting NOAC would discontinue aspirin and continue on clopidogrel, Eliquis for at least one year post stent Resume low-dose metoprolol when BP stable Supplement electrolytes No additional cardiac testing thought necessary at this time. History of Present Illness Attending Physician: Brendon Carrillo MD History of Present Illness Mr. Francis is a 78 year-old man with a history of Aortic Stenosis s/p Bioprosthetic AVR 06/2010, CAD s/p CABG x 1 vessel 06/2010 (TORRES to LAD) and recent PCI with MIKE to mid OM2 02/2019, Hypertension, Dyslipidemia, Prediabetes, Nicotine Dependence, medical nonadherence readmitted with abdominal pain. Patient recently seen by me in February 2019 and again earlier this month. In February he presented with an NSTEMI with peak troponin to 8.8. Was found to have a widely patent TORRES to LAD and 95% acute OM2 stenosis on catheterization, PCI with 2.5 x 18 mm Garrison. Since then has been on DAPT with aspirin, clopidogrel. Returned on 04/22/2019 with epigastric/abdominal pain. There was some question of chest pain and underwent repeat exercise stress echocardiogram which was negative for ischemia and discharged on 04/24/2019. He represented on 04/29/2019 with continued abdominal pain. Was seen by GI and underwent EGD which was largely unremarkable. Some concern for diverticulitis. Has been on narcotics and was seen by pain management. Found to have urinary retention yesterday. Again with abdominal pain today with symptoms resolved following Tidwell placement. This afternoon had a period of dizziness was noted to be hypotensive with blood pressures down to 78/37. At that time EKG noteworthy for atrial flutter with variable conduction, PVC, ventricular rate 70s to 80s. Transferred to telemetry. Later converted back to sinus rhythm around 2:30 PM. Blood pressure improved with IV fluid bolus. At time of interview still slightly dizzy with standing. Denies any chest pain, shortness of breath. Family history: Not contributory to the patient's coronaries. Social history: Denies tobacco use. Retired. . Allergies: Codeine Prior cardiovascular studies/procedures: 1. CARDIAC CATHETERIZATION 2009 -- LMCA -- Normal. -- LAD -- 20% Proximal stenosis, 70% midvessel stenosis. -- D1 -- 70% to 80% Midvessel stenosis. -- LCx and branches -- No significant disease. -- RCA and branches -- No significant disease. 2. OPEN HEART SURGERY June 2010: -- Bioprosthetic AVR and CABG x 1 Vessel (TORRES to LAD). -- Surgery complicated by post-op A-Fib / A-Flutter 3. CARDIAC CATHETERIZATION/PCI 02/2019 Severe 2 vessel coronary artery disease - 95+% acute proximal OM 2 with distal LIZ II flow 60% mid LAD after first diagonal -Patent TORRES to LAD Successful PCI of proximal to mid OM 2 with single drug-eluting stent (2.5 x 18 mm Garrison). 4. EXERCISE STRESS ECHO --Exercise 4: 37, 6.5 METS, nondiagnostic EKG changes. Normal echo response --Normal resting function, EF 55 to 60%, well-seated bioprosthetic aortic valve with no significant AI, mild MR, grade 1 diastolic dysfunction Allergies Allergy/AdvReac Type Severity Reaction Status Date / Time codeine Allergy Unknown "EYES GO Verified 04/29/19 09:32 SHUT AND HEAD SWELLS" zolpidem [From Ambien] Allergy Unverified 04/30/19 15:13 Home Medications Home Medications Medication Instructions Recorded Confirmed Type aspirin [Ecotrin Low Strength] 81 mg PO QAM #1 tab 02/17/19 04/29/19 Rx atorvastatin 80 mg PO QAM #60 tab 02/17/19 04/29/19 Rx clopidogrel 75 mg PO QAM #30 tab 02/17/19 04/29/19 Rx metoprolol succinate 25 mg PO QAM #30 tab 02/17/19 04/29/19 Rx nitroglycerin [Nitrostat] 0.4 mg SUBLINGUAL UD PRN #1 btl 04/23/19 04/29/19 Rx pantoprazole [Protonix] 40 mg PO QAM #30 tab 04/23/19 04/29/19 Rx cyclobenzaprine 10 mg tablet PO .TAKE 1 TABLET 3 TIME #21 tab 04/30/19 04/30/19 History diazepam 2 mg tablet 4 PO .TAKE 4 TABLET Daily tab 04/30/19 04/30/19 History naproxen 500 mg tablet PO .TAKE 1 TABLET BY TK #180 tab 04/30/19 04/30/19 History prednisone 20 mg tablet 20 mg PO .TAKE 2 TABLET Daily #14 04/30/19 04/30/19 History tab Patient History Medical History Tobacco abuse Alcohol use GERD (gastroesophageal reflux disease) Abdominal pain (Acute) Diverticulitis (Acute) Hyperlipidemia LDL goal <70 Coronary artery disease Non-ST elevation (NSTEMI) myocardial infarction (Acute) Hypertension Elevated troponin (Acute) Near syncope (Acute) Abdominal pain (Acute) Dizziness (Acute) Nausea, vomiting, and diarrhea (Acute) Vertigo (Acute) CAD (coronary artery disease) Surgical History Hx of aortic valve replacement Hx of CABG History of back surgery (Chronic) History of arthroscopy of right knee History of neck surgery Family History Other Coronary heart disease Social History Preferred Language: Georgian Communication Ability: Effective Pot Liner Required: No Beliefs That Will Affect Care: None marital status: Current Living Situation: Spouse Other Information That Helps Us Care for You: No Feels Safe at Home: Yes Safety Concerns: Feels Safe At This Time Smoking Status: Current every day smoker Tobacco Type: cigarettes Cigarettes Per Day: 6 Do You Dip or Chew Tobacco: No Second Hand Exposure: No Tobacco Cessation Education Requested by Patient: No Hx Alcohol Use: Yes Alcohol type: beer Alcohol Intake Frequency: Daily Hx Substance Use: No Review of Systems Review of Systems: All systems reviewed & are unremarkable except as noted in HPI & below Physical Exam Physical Exam: General: Comfortable, no acute distress Eyes: Sclerae anicteric, extraocular movements intact HENT: Oropharynx clear mucous membranes moist Neck: Normal carotid upstrokes, no bruits. No JVD. Lungs: Clear to auscultation bilaterally, no rhonchi or wheezes Cardiac: Regular with ectopy, crisp bioprosthetic aortic closure Abdomen: Soft, nontender, nondistended, positive bowel sounds. Tidwell in place, draining yellow urine Extremities: Well perfused, no peripheral edema Skin: No rashes or lesions. Neuro: Nonfocal Psych: Alert orient x3, normal affect and mood Results & Data Vital Signs (Past 12 Hours) Vital Signs Temp Pulse Pulse Resp BP BP BP 05/04/19 16:30 121/70 05/04/19 14:36 37.0 C 61 18 78/37 L 05/04/19 12:59 36.5 C 80 19 97/55 L 05/04/19 11:43 67 67 91/54 L 79/47 L 05/04/19 07:30 36.7 C 92 H 16 112/67 Pulse Ox 05/04/19 16:30 05/04/19 14:36 96 05/04/19 12:59 95 05/04/19 11:43 99 05/04/19 07:30 99
--- NOTE | 2019-05-04 17:45 | Urology Consultation ---
Date of Consultation May 04, 2019 Assessment & Plan (1) Pain due to retention of urine: Urinary retention seems to be the source of his abdominal pain. his sensory pattern is very altered both in where he felt the pain from his mildly distended bladder and his lack of sensation to urine flow. I think this is related to his prior spine injuries and surgeries and if so there is no therapy for it. He does also have an enlarged prostate and we will suggest max med treatment for it, tamsulosin at bedtime and finasteride daily. I suggest he keep the ya for 2-3 weeks and have a void trial in my office. He would like to be trained on how to use a leg bag. No antibiotics needed at this time for urine. If he was having retention due to BPH we would usually see more bladder wall thickening than what he shows on the ct scan. elevated psa- I am pleasantly surprised he has a normal prostate on SARA. He could have elevated psa from benign reasons like retention or instrumentation but if so it should fall over the next month as these issues are treated. We will repeat in about a month as outpatient. I am also pleasantly surprised that the ct scan shows NO evidence of metastatic disease. If his psa does not fall once his retention is treated he will need a prostate biopsy in the office. With a psa elevation of 54 in 2015 and 113 now I suspect he has a prostate cancer but it might be a more indolent variety. Present on Admission?: Yes History of Present Illness Reason for Consultation: urinary retention Requesting Physician: Dr Noel Attending Physician: Brendon Carrillo MD History of Present Illness I am asked by Dr Noel to evaluate and treat patient for urinary retention. He is admitted for chest and abdominal pain. He had a ya placed last night easily at the bedside and drained 450mL of urine. This has relieved nearly all his abdominal pain. Of note he had experienced the pain in an unusual pattern in the suprapubic area to some extent but more intensely in the epigastrium and lateral abdomen. His bladder was never distended up this high. He feels that he has had altered urination sensory issues for many years. He simply stopped being able to feel the urine flowing at all several years ago. He can hear the urine flowing but cannot feel it at all. He struggles to feel when he is full and he cannot tell when he is finished voiding as he does not feel any sensation of emptying. He feels he has not had a strong urination and has voided sitting down for years. He feels the flow was weaker last few weeks. He also has a very high psa of 113. I spoke with lab and he had a PSA done in April 2015 which was 56. Thus his psa doubling time is 4 years which is slow. He has had 2 ct scans which radiology reviewed this me this evening. Prostate is enlarged, bladder is mildly to moderately distended with no suspicious masses. He has no pelvic obturator, iliac or periaortic lymphadenopathy and no evidence of bone mets. He does have a small suspicious pancreas mass in the uncinate. Allergies Allergy/AdvReac Type Severity Reaction Status Date / Time codeine Allergy Unknown "EYES GO Verified 04/29/19 09:32 SHUT AND HEAD SWELLS" zolpidem [From Ambien] Allergy Unverified 04/30/19 15:13 Home Medications Home Medications Medication Instructions Recorded Confirmed Type aspirin [Ecotrin Low Strength] 81 mg PO QAM #1 tab 02/17/19 04/29/19 Rx atorvastatin 80 mg PO QAM #60 tab 02/17/19 04/29/19 Rx clopidogrel 75 mg PO QAM #30 tab 02/17/19 04/29/19 Rx metoprolol succinate 25 mg PO QAM #30 tab 02/17/19 04/29/19 Rx nitroglycerin [Nitrostat] 0.4 mg SUBLINGUAL UD PRN #1 btl 04/23/19 04/29/19 Rx pantoprazole [Protonix] 40 mg PO QAM #30 tab 04/23/19 04/29/19 Rx cyclobenzaprine 10 mg tablet PO .TAKE 1 TABLET 3 TIME #21 tab 04/30/19 04/30/19 History diazepam 2 mg tablet 4 PO .TAKE 4 TABLET Daily tab 04/30/19 04/30/19 History naproxen 500 mg tablet PO .TAKE 1 TABLET BY TK #180 tab 04/30/19 04/30/19 History prednisone 20 mg tablet 20 mg PO .TAKE 2 TABLET Daily #14 04/30/19 04/30/19 History tab Patient History Medical History Tobacco abuse Alcohol use GERD (gastroesophageal reflux disease) Abdominal pain (Acute) Diverticulitis (Acute) Hyperlipidemia LDL goal <70 Coronary artery disease Non-ST elevation (NSTEMI) myocardial infarction (Acute) Hypertension Elevated troponin (Acute) Near syncope (Acute) Abdominal pain (Acute) Dizziness (Acute) Nausea, vomiting, and diarrhea (Acute) Vertigo (Acute) CAD (coronary artery disease) Surgical History Hx of aortic valve replacement Hx of CABG History of back surgery (Chronic) History of arthroscopy of right knee History of neck surgery Family History Other Coronary heart disease Social History Preferred Language: Italian Communication Ability: Effective Medication Aid Required: No Beliefs That Will Affect Care: None marital status: Current Living Situation: Spouse Other Information That Helps Us Care for You: No Feels Safe at Home: Yes Safety Concerns: Feels Safe At This Time Smoking Status: Current every day smoker Tobacco Type: cigarettes Cigarettes Per Day: 6 Do You Dip or Chew Tobacco: No Second Hand Exposure: No Tobacco Cessation Education Requested by Patient: No Hx Alcohol Use: Yes Alcohol type: beer Alcohol Intake Frequency: Daily Hx Substance Use: No Review of Systems Review of Systems: PMH/PSH- psoriasis cholesterol, HTN, CAD, valve replacement, 3 knee surgeries, cervical spine surgery, lumbar spine surgery Soc- retired, + lifelong smoker, drinks daily, Fam Hx- brother and father of CAD in their 60's, sister age 80 dementia, no cancer no BPH problems known ROS- + chest pain, - SOB, + nausea, - emesis,- + excess gas, no new rash but chronic psoriasis, no seizures, no fevers, no chills, appetite fair, ++ constipation Physical Exam Constitutional: WD/WN, vitals as above + well hydrated, + obese, healthy appearing, well groomed, cooperative and comfortable Cardiovascular: Extremities: normal capillary refill; no calf tenderness, no pedal edema and no edema Gastrointestinal (Abdomen): normal bowel sounds, soft, nontender, no hepatosplenomegaly Percussion/Palpation: abdomen soft; abdomen nontender and no guarding Musculoskeletal: Extremities: extremities normal to inspection Gait: normal gait Psychiatric: A+Ox3, euthymic affect Genitourinary: no CVA tenderness, no penis abnormality, no scrotum abnormality and no prostate abnormality ya in place draining yellow urine. Prostate is enlarged 60 grams smooth and normal edges, not tender or boggy, not abnormally firm. anal sphincter tone slightly decreased. Lymphatic: no cervical or axillary lymphadenopathy no preauricular lymphadenopathy, no subclavicular lymphadenopathy and no inguinal lymphadenopathy Results & Data Vital Signs (Past 12 Hours) Vital Signs Temp Pulse Pulse Resp BP BP BP 05/04/19 16:30 121/70 05/04/19 14:36 37.0 C 61 18 78/37 L 05/04/19 12:59 36.5 C 80 19 97/55 L 05/04/19 11:43 67 67 91/54 L 79/47 L 05/04/19 07:30 36.7 C 92 H 16 112/67 Pulse Ox 05/04/19 16:30 05/04/19 14:36 96 05/04/19 12:59 95 05/04/19 11:43 99 05/04/19 07:30 99
[2019-05-04] MEDS: CIPROFLOXACIN 250 MG TAB PO SCH (18:18)
[2019-05-04] MEDS: metroNIDAZOLE 500 MG TAB PO SCH (18:18)
[2019-05-04] MEDS: TAMSULOSIN HCL 0.4 MG CAP PO SCH (20:07)
[2019-05-05] MEDS: metroNIDAZOLE 500 MG TAB PO SCH ×3 (01:15→17:46)
[2019-05-05] MEDS: OXYCODONE HCL IR 5 MG TAB (IMMEDIATE RELEASE) PO PRN ×2 (01:15→23:37)
[2019-05-05] MEDS: CIPROFLOXACIN 250 MG TAB PO SCH ×2 (05:26→17:46)
[2019-05-05] MEDS: ACETAMINOPHEN 500 MG TAB PO SCH ×3 (05:27→20:54)
[2019-05-05 06:04] LABS: Creatinine Clr Calc Pharmacy 58.9 ml/min; Est GFR (African American) 69.1; Est GFR (Non-African American) 59.6
[2019-05-05] MEDS: ATORVASTATIN 40 MG TAB PO SCH (08:14)
[2019-05-05] MEDS: POLYETHYLENE (MIRALAX) 17 GM PACK PO SCH (08:14)
[2019-05-05] MEDS: CLOPIDOGREL BISULFATE 75 MG TAB PO SCH (08:14)
[2019-05-05] MEDS: DOCUSATE SODIUM 100 MG CAP PO SCH ×2 (08:15→20:54)
[2019-05-05] MEDS: PANTOprazole 40 MG TAB PO SCH (08:15)
[2019-05-05] MEDS: METOPROLOL SUCC 25MG EXT REL TAB PO SCH (08:15)
[2019-05-05] MEDS: ASPIRIN 81 MG ECTAB PO SCH (08:15)
[2019-05-05] MEDS: FINASTERIDE 5 MG TAB PO SCH (08:16)
[2019-05-05] MEDS ORDERED: FINASTERIDE 5 MG TAB PO SCH (09:00)
[2019-05-05 09:14] LABS: Basophils # (auto) 0.13 K/uL (0-0.2); Basophils % (auto) 1.5 %; Eosinophils # (auto) 0.66 K/uL (0-0.5); Eosinophils % (auto) 7.4 %; Hematocrit (blood only) 43.5 % (42-52); Immature Granulocytes # (auto) 0.14 K/uL (0.00-0.02); Immature Granulocytes % (auto) 1.6 %; Lymphocytes # (auto) 2.03 K/uL (1.2-3.4); Lymphocytes % (auto) 22.7 %; Mean Corpuscular Hgb Conc 34.5 g/dL (32-36); Mean Corpuscular Volume 92.6 fL (80-100); Mean Platelet Volume 9.3 fL (7.4-10.4); Monocytes # (auto) 0.96 K/uL (0.11-0.59); Monocytes % (auto) 10.7 %; Neutrophils # (auto) 5.02 K/uL (1.4-6.5); Neutrophils % (auto) 56.1 %; Platelet Count 224 K/uL (130-400); RDW Coefficient of Variation 15.5 % (11.5-14.5); White Blood Count 8.94 K/uL (4.8-10.8)
[2019-05-05 09:22] LABS: BUN Creatinine Ratio 18.1 (10-20); Calcium 8.5 mg/dl (8.5-10.1); Creatinine Clr Calc Pharmacy 58.9 ml/min; Est GFR (African American) 69.1; Est GFR (Non-African American) 59.6
[2019-05-05] MEDS: APIXABAN 5 MG TABLET PO SCH ×2 (10:46→19:55)
--- NOTE | 2019-05-05 15:31 | Hospitalist Progress Note ---
Date of Service May 05, 2019 Assessment & Plan (1) Abdominal pain: -Last colonoscopy was over 10 years ago -CT abd/pelvis showing mild diverticulitis on admission - no evidence of acute abdomen, no free air on KUB or obstruction - consulted GI - endoscopy 05/01 did not show any acute process - mesenteric doppler wnl - continue po 5 mg oxycodone q6h prn pain, scheduled Tylenol - repeated CT - Air-fluid levels throughout the large bowel are suggestive of diarrheal illness, Prostatomegaly with mild nonspecific urinary bladder wall thickening. Correlate with urinalysis. - consult pain management - per GI, did appear to have opioid ileus and was given Relistor - Patient was straight cathed with 450 retained 05/03- PSA was 112 - given tamsulosin, Ya catheter with resolution of abdominal pain. U/A with RBCs - per nursing report traumatic ya insertion. Urine culture pending. - Urology consulted - discontinued tamsulosin as below and started finasteride. (2) Hypotension: possibly secondary to tamsulosin administration, improving Given 2L NSS (3) Atrial fib/flutter, transient: found on the morning of 05/04 Cardiology consulted - cardiology recommends starting Eliquis, continuing with Plavix due to recent stent and discontinuing ASA Risks and benefits of Eliquis reviewed with patient (4) GERD (gastroesophageal reflux disease): -Continue pantoprazole, ranitidine (5) Diverticulitis: -As noted above - dc'd zosyn and started po cipro/flagyl - no acute abdomen, leukocytosis, or fever (6) Coronary artery disease: - Plavix 75 mg QAM, metoprolol succ 25 mg QAM - Followed with Dr. Rios for stent placed during last admission (7) Hx of CABG: (8) Non-ST elevation (NSTEMI) myocardial infarction: - Resolved, occurred on 02/15/2019 - s/p PCI to OM 2 and prior TORRES to LAD by Dr. Rios - [facility] (9) Hypertension: - Continue metoprolol - hydralazine prn (10) Hx of aortic valve replacement: - Noted, stable (11) Hyperlipidemia LDL goal <70: -Continue atorvastatin 80 mg QAM (12) Alcohol use: - Drinks approx 3 beers daily - has not had any alcohol for at least a week and a half - Encouraged cessation (13) Tobacco abuse: - Tobacco use for many years, smokes 1/2 ppd - nicotine patch - Cessation encouraged. (14) Obesity (BMI 30.0-34.9): - BMI of 33.5, diet and exercise counseling (15) Lesion of adrenal gland: 2.1 cm adrenal gland lesion found on gallbladder US Follow up outpatient (16) Hepatic steatosis: Seen on gallbladder US Alcohol cessation and dietary modification counseling (17) DVT prophylaxis: -teds, Eliquis Subjective Mr. Francis continues to improve. His pain is is minimal. He continues to be in an afib/flutter though he has no symptoms. His blood pressure is improving, he did have some dizziness this morning Review of Systems Review of Systems: All systems reviewed & are unremarkable except as noted in HPI & below Physical Exam Physical Exam: General: no distress Eyes: normal inspection, PERLL Respiratory: chest non tender, clear to auscultation, normal breath sounds, no respiratory distress, no accessory muscle use Cardiac: irregular rate and rhythm, no rub or gallop, no murmur, no edema, no jvd GI/: active bowel sounds, no abd pain or tenderness, soft, non distended Extremities: normal range of motion, normal strength, non tender Neuro/Psych: alert and oriented x 3, normal mood and affect Skin: normal color, dry Results & Data Vital Signs (Past 12 Hours) Vital Signs Temp Pulse Resp BP BP Pulse Ox 05/05/19 12:01 36.7 C 70 18 124/77 98 05/05/19 06:52 36.6 C 86 20 112/72 96 PG Care Time/CCT Total # of Minutes Spent Total Time Spent with Patient: Total time spent is greater than 50% in coordination of care (as documented) at patient's floor/unit and/or counseling patient: (1) Abdominal pain Abdominal location: unspecified location Qualified Code(s): R10.9 - Unspecified abdominal pain (2) Hypertension Hypertension type: essential hypertension Qualified Code(s): I10 - Essential (primary) hypertension
[2019-05-05] MEDS: TAMSULOSIN HCL 0.4 MG CAP PO SCH (19:55)
[2019-05-06] MEDS: metroNIDAZOLE 500 MG TAB PO SCH ×2 (00:51→10:54)
[2019-05-06] MEDS: SIMETHICONE 80 MG CHEW PO PRN ×2 (00:51→07:40)
[2019-05-06] MEDS: ACETAMINOPHEN 500 MG TAB PO SCH (05:50)
[2019-05-06] MEDS: CIPROFLOXACIN 250 MG TAB PO SCH (05:50)
[2019-05-06 06:44] LABS: Creatinine Clr Calc Pharmacy 70.9 ml/min; Est GFR (African American) 86.5; Est GFR (Non-African American) 74.6
[2019-05-06] MEDS: CLOPIDOGREL BISULFATE 75 MG TAB PO SCH (08:19)
[2019-05-06] MEDS: DOCUSATE SODIUM 100 MG CAP PO SCH (08:20)
[2019-05-06] MEDS: ATORVASTATIN 40 MG TAB PO SCH (08:20)
[2019-05-06] MEDS: PANTOprazole 40 MG TAB PO SCH (08:20)
[2019-05-06] MEDS: METOPROLOL SUCC 25MG EXT REL TAB PO SCH (08:20)
[2019-05-06] MEDS: APIXABAN 5 MG TABLET PO SCH (08:20)
[2019-05-06] MEDS: FINASTERIDE 5 MG TAB PO SCH (08:20)
[2019-05-06] MEDS: POLYETHYLENE (MIRALAX) 17 GM PACK PO SCH (08:21)
--- NOTE | 2019-05-06 09:04 | Discharge Summary ---
Date of Service May 06, 2019 Admission HPI Per Admitting Provider This is a 78 yo M with PMHx of significant cardiac disease including CAD, HTN, HLD, hx of CABG, hx of PA on 02/15/19 followed by coronary artery stent on 02/15/19, hx of aortic valve replacement, GERD, alcohol use and tobacco abuse. The patient was recently admitted from 04/22/19-04/24/19 for episode of chest pain. The patient represents today with worsening abdominal pain in the epigastric region. Patient reports that his epigastric pain started earlier this week on Tuesday, actually on the day he was discharged. He reports that it is currently a 2/10 but that he has received pain medication, he also appears to be slightly drowsy during my exam. He notes his abdominal pain is worse whenever he lies flat to go to bed at night, complains of an indigestion-like complaint, burning, bloating/distention. Patient reports he "lives on Tums" but that nothing seems to control his acid reflux. He denies any chest pain at all, shortness of breath, flutter, palpitation, headache or dizziness. He denies any vomiting, nausea or changes in bowels. His last bowel movement was yesterday, denies history of diarrhea or constipation. He denies chronic use of NSAIDs. He admits to drinking alcohol, approximately 3 beers per day but reports that he has not had many alcoholic drinks since being admitted during the last admission nor since going home. Principal Diagnosis urinary retention, atrial flutter Discharge Data Allergies Allergy/AdvReac Type Severity Reaction Status Date / Time codeine Allergy Unknown "EYES GO Verified 04/29/19 09:32 SHUT AND HEAD SWELLS" zolpidem [From Ambien] Allergy Unverified 04/30/19 15:13 Consultations 04/29/19 11:51 ED Decision to Admit Stat 04/29/19 14:59 Consult Case Management - Discharge Planning Routine 05/01/19 09:25 Consult Gastroenterology Routine 05/04/19 13:00 Consult Urology Routine 05/04/19 13:29 Consult Cardiology Routine 05/06/19 09:01 Consult JAN touch up worker Routine Procedures Performed Operation Date: 05/01/19 10:30 Actual Procedures p Esophagogastroduodenoscopy - Modesto Whitfield Ordered Studies 04/29/19 09:28 CT abd pelvis IV con only Stat 05/01/19 08:05 US gallbladder Routine 05/02/19 10:28 US duplex mesenteric Routine 05/03/19 10:14 CT abd pelvis oral and IV con Routine Hospital Course (1) Pain due to retention of urine: Mr. Francis initially presented with abdominal pain and was found to have diverticulitis on CT however as the week progressed he continued to have an inordinate amount of pain that was incongruous with his diagnosis and physical exam. He was requiring round the clock narcotics until nursing discovered he was retaining about 450 ml of urine following a straight cath for a specimen on 05/03. A Ya catheter was placed resulting in near complete resolution of his pain - U/A with RBCs - per nursing report traumatic ya insertion. Urine culture pending. - Urology consulted - initially discontinued tamsulosin for hypotension but was restarted by urology and patient has been tolerating it over the last two days so will continue along with finasteride - patient will go home with ya catheter and will follow up with urology in 2- 3 weeks for void trial (2) Abdominal pain: -Last colonoscopy was over 10 years ago -CT abd/pelvis showing mild diverticulitis on admission - no evidence of acute abdomen, no free air on KUB or obstruction - consulted GI - endoscopy 05/01 did not show any acute process - mesenteric doppler wnl - repeated CT - Air-fluid levels throughout the large bowel are suggestive of diarrheal illness, Prostatomegaly with mild nonspecific urinary bladder wall thickening. - consulted pain management - his pain resolved with Ya - per GI, did appear to have opioid ileus and was given Relistor (3) Hypotension: possibly secondary to tamsulosin administration, improving Given 2L NSS (4) Atrial fib/flutter, transient: found on the morning of 05/04 and patient has been going in and out of dysrhythmia since then Cardiology consulted - cardiology recommends starting Eliquis, continuing with Plavix due to recent stent and discontinuing ASA Risks and benefits of Eliquis reviewed with patient (5) GERD (gastroesophageal reflux disease): -Continue pantoprazole, ranitidine (6) Diverticulitis: -As noted above - dc'd zosyn and started po cipro/flagyl - completed 7 days of antibiotics - GI recommends colonoscopy in 6-8 weeks (7) Coronary artery disease: - Plavix 75 mg QAM, metoprolol succ 25 mg QAM - Followed with Dr. Rios for stent placed during last admission (8) Hx of CABG: (9) Non-ST elevation (NSTEMI) myocardial infarction: - Resolved, occurred on 02/15/2019 - s/p PCI to OM 2 and prior TORRES to LAD by Dr. Rios - [facility] wnl (10) Hypertension: - Continue metoprolol - hydralazine prn (11) Hx of aortic valve replacement: - Noted, stable (12) Hyperlipidemia LDL goal <70: -Continue atorvastatin 80 mg QAM (13) Alcohol use: - Drinks approx 3 beers daily - has not had any alcohol for at least 2 weeks - Encouraged cessation (14) Tobacco abuse: - Tobacco use for many years, smokes 1/2 ppd - nicotine patch - Cessation encouraged. (15) Obesity (BMI 30.0-34.9): - BMI of 33.5, diet and exercise counseling (16) Lesion of adrenal gland: 2.1 cm adrenal gland lesion found on gallbladder US Discussed with patient Follow up outpatient (17) Hepatic steatosis: Seen on gallbladder US Alcohol cessation and dietary modification counseling Follow up outpatient (18) DVT prophylaxis: -Cristopher benoit (19) Anxiety: started buspirone 5 mg tid Diazepam 2 mg hs prn Total Time Total Time Spent Total Time Spent (In Minutes): greater than 30 minutes Discharge Plan Discharge Items Patient Disposition: Home - Self-Care Reason For Visit: abdominal pain Discharge Diagnosis: Urinary retention, atrial flutter Discharge Goals: Decrease discomfort and Improve disease control Activity: Resume your previous activity Activity Comment: gradually as tolerated Non-emergency contact: Primary Care Provider Call non-emergency contact if: you have any medication questions Follow-up/Referrals: Reji Paige MD [Primary Care Provider] - Diet: Heart Healthy Addtl Provider Instructions: Please follow up next week with your primary care provider. You will see urology in 2-3 weeks for Ya catheter removal and void trial. You will need to see your skiving machine operator in the next couple of weeks as well as gastroenterology. I will send a note for our nurse navigator to make these appointments. If you do not hear from anyone by Tuesday, please call their offices. Your blood pressure has been running at times very low and at times high while you have been in the hospital. Please check your blood pressure at home daily with a home pressure cuff and keep a log to take with you to your next primary care provider to appointment so that your hypertensive medications can be titrated appropriately You will be sent home with and anticoagulant called apixaban (Eliquis). You should call your doctor right away if you fall or hit your head, if you see blood in your stool or black tarry stools, if you develop little red spots on your skin (petechiae), or if you develop excessive bruising. You may bleed more easily. Be careful and avoid injury. Use a soft toothbrush and an electric razor. Do not to take any [id number] pain medicine except Tylenol (including aspirin, ibuprofen, Motrin, Aleve, Advil, naproxen, diclofenac sodium, oral Voltaren, also not allowed to take fish oil as all these medications increase your incidence of bleeding) You can take Tylenol as needed for pain but not more than 3000 mg per day as a total dose (that is the maximum of 6 tablet, 500 mg each, divided throughout the day) , if you take more than the total of 3000 mg of Tylenol throughout the day you may damage your liver. Gastroenterology recommends that you have a colonoscopy in 6-8 weeks Prescriptions: New buspirone 5 mg Tablet 5 mg PO TID Qty: 30 RF: 0 tamsulosin 0.4 mg Capsule 0.4 mg PO HS Qty: 30 RF: 0 finasteride [Proscar] 5 mg Tablet 5 mg PO QAM Qty: 30 RF: 0 Eliquis 5 mg Tablet 5 mg PO BID Qty: 60 RF: 0 Continued diazepam 2 mg tablet 4 PO .TAKE 4 TABLET Daily RF: 0 cyclobenzaprine 10 mg tablet PO .TAKE 1 TABLET 3 TIME Qty: 21 RF: 0 nitroglycerin [Nitrostat] 0.4 mg Tablet, Sublingual 0.4 mg sublingual UD PRN (Reason: chest pain) Qty: 1 RF: 0 pantoprazole [Protonix] 40 mg tablet,delayed release (DR/EC) 40 mg PO QAM Qty: 30 RF: 0 atorvastatin 40 mg Tablet 80 mg PO QAM Qty: 60 RF: 0 clopidogrel 75 mg Tablet 75 mg PO QAM Qty: 30 RF: 0 metoprolol succinate 25 mg Tablet Extended Release 24 Hr 25 mg PO QAM Qty: 30 RF: 0 Discontinued naproxen 500 mg tablet PO .TAKE 1 TABLET BY TK Qty: 180 RF: 0 prednisone 20 mg tablet 20 mg PO .TAKE 2 TABLET Daily Qty: 14 RF: 0 aspirin [Ecotrin Low Strength] 81 mg Tablet,Delayed Release (Dr/Ec) 81 mg PO QAM Qty: 1 RF: 0 Stand-Alone Forms: Call Back Authorization, [facility]/Other Patient Handouts: Apixaban Oral tablet Discharge Orders: Discharge Order (Routine); Ordered 05/06/19 Ordered By: Preethi Campbell Admission Data Admit Date/Time: 05/02/19 14:38 Attending Provider: Brendon Carrillo Admit Provider: Andria Thomas Primary Care Provider: Reji Paige Other Providers: Radha Valera ; Andria Thomas ; Modesto Whitfield ; Reji Rios ; Leann Markham Service: Telemetry
== END 2019-05-06 11:21 | disposition home or self-care (01) | DRG 696 ==
LOC: ED 08:57 → 4W 08:57 → SUATTDRO 12:08 → 4W 14:34 → 2S 05-04 11:55
DX: Z68.30 Body mass index [BMI] 30.0-30.9, adult; I25.10 Atherosclerotic heart disease of native coronary artery without angina pectoris; F17.210 Nicotine dependence, cigarettes, uncomplicated; E66.9 Obesity, unspecified; I95.2 Hypotension due to drugs; Z95.1 Presence of aortocoronary bypass graft; I25.2 Old myocardial infarction; K57.92 Diverticulitis of intestine, part unspecified, without perforation or abscess without bleeding; N40.1 Benign prostatic hyperplasia with lower urinary tract symptoms; I10 Essential (primary) hypertension; Z91.19 Patient's noncompliance with other medical treatment and regimen; Z88.5 Allergy status to narcotic agent; R33.9 Retention of urine, unspecified; Z79.02 Long term (current) use of antithrombotics/antiplatelets; Z79.82 Long term (current) use of aspirin; E78.5 Hyperlipidemia, unspecified; Z95.2 Presence of prosthetic heart valve; Y92.239 Unspecified place in hospital as the place of occurrence of the external cause; T44.6X5A Adverse effect of alpha-adrenoreceptor antagonists, initial encounter; Z82.49 Family history of ischemic heart disease and other diseases of the circulatory system; I48.92 Unspecified atrial flutter; Z72.89 Other problems related to lifestyle